=== PATIENT | male | born 1945 | race African-American/Black ===

== ENCOUNTER 2016-04-03 09:15 | Observation (INO) | payer MEDICARE ==
--- NOTE | 2016-04-03 09:34 | ERNOTE ---
Chest Pain/Cardiac HPI Date of Service: 04/03/16 Chief Complaint: Chest Pain Time Seen by Provider: 04/03/16 09:29 Source: patient Exam Limitations: no limitations Allergies/Adverse Reactions: Allergies No Known Allergies Allergy (Verified 05/28/14 14:55) Home Medications: HOME MEDICATIONS Multivitamin [Multivitamins] 1 each PO DAILY 09/20/12 [Last Taken 02/20/13] Tamsulosin HCl [Flomax] 0.8 mg PO HS 09/20/12 [Last Taken 02/20/13] Atorvastatin Calcium [Lipitor] 10 mg PO HS 12/15/12 [Last Taken 02/20/13] Docusate Sodium [Colace] 100 mg PO DAILY 02/18/13 [Last Taken 02/20/13] Folic Acid 0.4 mg PO DAILY 02/18/13 [Last Taken 02/20/13] Aspirin [Aspirin Enteric Coated] 81 mg PO DAILY 04/12/13 [Last Taken Unknown] Cholecalciferol (Vitamin D3) [Vitamin D3] 400 unit PO DAILY 04/12/13 [Last Taken Unknown] Nitroglycerin [Nitrostat] 0.4 mg SL PRN PRN 04/12/13 [Last Taken Unknown] Omeprazole [Prilosec] 20 mg PO DAILY 04/12/13 [Last Taken Unknown] Vitamin B Complex [Hi B Complex] 1 each PO DAILY 07/08/13 [Last Taken Unknown] Calcium Carbonate [Tums] 500 mg PO BID 12/28/14 [Last Taken Unknown] Fludrocortisone Acetate [Florinef] 0.1 mg PO 12/28/14 [Last Taken Unknown] Memantine HCl [Namenda] 5 mg PO DAILY 12/28/14 [Last Taken Unknown] Naproxen [Naprosyn] 375 mg PO BID #30 tab 12/28/14 [Last Taken Unknown] Spironolactone [Aldactone] 12.5 mg PO DAILY 12/28/14 [Last Taken Unknown] amLODIPine BESYLATE [Norvasc] 10 mg PO DAILY 12/28/14 [Last Taken Unknown] Narrative: pt states he had sqeezing type chest pains approximately 45 minutes prior to presentation to ED after he ate. then the pain spontaneously go away. He came in because he was worried. Review of Systems - Review of Systems Constitutional: Present: no symptoms reported EYE: Present: no symptoms reported ENT: Present: no symptoms reported Respiratory: Present: no symptoms reported Cardiology: Present: See HPI Gastrointestinal/Abdominal: Present: no symptoms reported Genitourinary: Present: no symptoms reported Musculoskeletal: Present: no symptoms reported Skin: Present: no symptoms reported - Patient's Past Medical History Patient History - Medical: No pertinent hx Patient History - Surgical Procedures: Noncontributory - Social History Does anyone smoke in the home?: No Physical Exam - Physical Exam General Appearance: Present: wd/wn, alert, no apparent distress, other - pt does NOT have any chest pains on exam Ears, Nose, Throat: Present: normal ENT inspection, hearing grossly normal Neck: Present: normal inspection, nontender, supple, full range of motion Respiratory: Present: no respiratory distress, normal breath sounds Cardiovascular/Chest: Present: regular rate, rhythm, no murmur, normal peripheral pulses Extremity Exam: Present: normal inspection, non-tender, no edema, normal range of motion ED Progress - Results and Orders Patient's Lab Results:: I have reviewed the patient's lab results. - Vital Signs Patient's Vital Signs:: I have reviewed the patient's vital signs. - EKG EKG: NSR - Progress/Reassessment Chief Complaint: Chest Pain Progress:: Improved Departure - Departure Clinical Impression: Chest pain Qualifiers: Chest pain type: unspecified Qualified Code(s): R07.9 - Chest pain, unspecified Disposition: [facility] Condition: Fair Referrals: Symone Worthy MD [Primary Care Provider] -
[2016-04-03 09:53] LABS: Hematocrit 39.2 % (42.0-52.0); Hemoglobin 12.9 gm/dL (13.5-18.0); Mean Cell Volume 95.1 fl (78-100); Mean Corpuscular Hemoglobin 31.3 pg (27-31); Mean Corpuscular Hgb Conc 32.9 g/dl (32-36); Mean Platelet Volume 9.8 fl (6.0-9.5); Neutrophil % 53.6 % (42-75.0); Platelet Count 205 K/mm3 (150-450); Red Blood Count 4.12 M/mm3 (4.7-6.0); Red Cell Distribution Width 12.2 % (11.5-14.0); White Blood Count 7.5 K/mm3 (4.0-10.5)
[2016-04-03 10:21] LABS: ALT 24 U/L (19-67); AST 17 U/L (0-48); Albumin * 3.3 gm/dl (3.4-5.0); Alkaline Phosphatase * 44 U/L (50-170); Anion Gap 8.9 mmol/L (6.8-13.8); BUN/Creatinine Ratio 8.5 (9.0-21.6); Bilirubin, Total 1.7 mg/dL (0.0-1.1); Blood Urea Nitrogen 9 mg/dL (6-23); Ca. Corrected For Albumin 8.8 mg/dL (8.4-10.2); Calcium * 8.6 mg/dL (7.9-10.9); Carbon Dioxide 30.8 mmol/L (24-32.6); Chloride 106 mmol/L (97-106); Glucose * 94 mg/dL (70-110); Potassium 3.7 mmol/L (3.4-4.6); Sodium 142 mmol/L (132-142); Total Protein 6.4 gm/dL (6.2-8.2)
[2016-04-03 10:22] LABS: Troponin I Less than 0.017 ng/ml (0.00-0.10)
[2016-04-03 17:03] VITALS: BP 177/69
--- NOTE | 2016-04-03 18:19 | HP ---
Chief Complaint - Chief Complaint Date of Service: 04/03/16 Time of Service: 18:18 Chief Complaint: mid sternal chest pain at approximately 0900 hrs on morning of admission. History of Present Illness: Patient is a 71-year-old -[place] male with a H/O HTN, HLD, BPH, GERD and mild dementia had midsternal chest pain which "scared him" which prompted him to come to the ER at approximately 9 AM. This occurred on and off intermittently for the next 2-3 minutes. There was no radiation, diaphoresis, palpitations or nausea associated with it. Initial EKG was unremarkable and troponin was normal. He was admitted into observation. - Patient's Past Medical History Additional info: PAST MEDICAL HISTORY: Hypertension, hyperlipidemia, GERD, BPH, mild dementia, constipation, dizziness improved with fludrocortisone. Patient History - Cancer: No Hx of Cancer Additional Info: PAST SURGICAL HISTORY: Hemorrhoidals Rxed with infrared 1994; laparoscopic cholecystectomy with cholangiogram 02/19/2013; TURP 02/25/2013; LT inguinal hernia repaired with mesh 04/2013. Patient History - Other: None - Family History Mother Family History - Medical: - 81-LA, CVA Father Family History - Medical: - 41sgunshot wound Brother Family History - Medical: - one at 54 with LA; 1 in 60s'- EtOH; one in 30s'- EtOH and drug abuse. 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 - Immunizations Immunizations Up to Date: Yes - tetanus 08/2012; Hx Pneumococcal Vaccination: Yes - History of Influenza Vaccine: Yes - 11/2015. Review Of Systems (GEN) - Review of Systems Generalized/Overall Review: Absent: Weakness, Fatigue, Weight loss Respiratory: Absent: Shortness of Breath, Orthopnea Cardiac: Present: Chest Pain. Absent: Edema, Palpitations Abdominal: Absent: Nausea, Vomiting, Diarrhea Allergies/Adverse Reactions: Allergies Allergy/AdvReac Type Severity Reaction Status Date / Time No Known Allergies Allergy Verified 05/28/14 14:55 Home Medications: HOME MEDICATIONS Atorvastatin Calcium [Lipitor] 10 mg PO HS 12/15/12 [Last Taken 02/20/13] Docusate Sodium [Colace] 300 mg PO DAILY 02/18/13 [Last Taken 02/20/13] Folic Acid 0.4 mg PO DAILY 02/18/13 [Last Taken 02/20/13] Aspirin [Aspirin Enteric Coated] 81 mg PO DAILY 04/12/13 [Last Taken Unknown] Nitroglycerin [Nitrostat] 0.4 mg SL PRN PRN 04/12/13 [Last Taken Unknown] Vitamin B Complex [Hi B Complex] 1 each PO DAILY 07/08/13 [Last Taken Unknown] Calcium Carbonate [Tums] 500 mg PO BID 12/28/14 [Last Taken Unknown] Fludrocortisone Acetate [Florinef] 0.05 mg PO 3XW 12/28/14 [Last Taken Unknown] Cholecalciferol (Vitamin D3) [Vitamin D3] 2,000 unit PO DAILY #100 tablet [Last Taken Unknown] Memantine HCl [Namenda Xr] 1 cap PO DAILY 04/03/16 [Last Taken Unknown] Omeprazole 20 mg PO DAILY@0700 #.1 tablet. 04/03/16 [Last Taken Unknown] Psyllium Husk (with Sugar) [Metamucil] 1 packet PO DAILY 04/03/16 [Last Taken Unknown] Spironolactone [Aldactone] 12.5 mg PO DAILY@0900 #.1 tablet 04/03/16 [Last Taken Unknown] Tamsulosin HCl [Flomax] 0.8 mg PO DAILY@1800 #.1 cap.sr.24h 04/03/16 [Last Taken Unknown] amLODIPine BESYLATE [Norvasc] 5 mg PO DAILY@2100 #.1 tablet 04/03/16 [Last Taken Unknown] Exam - Exam Vital Signs: Vital Signs - Last Taken Temp 36.4 C L 04/03/16 16:59 Pulse 48 L 04/03/16 18:00 Resp 20 04/03/16 16:59 BP 177/69 04/03/16 16:59 Pulse Ox 99 04/03/16 16:59 Constitutional: Present: No distress, Elderly, Overweight ENT Exam: Present: hearing grossly normal, moist mucous membranes Eye Exam: bilateral eye: normal inspection, PERRL, EOMI Neck: Present: normal inspection, trachea midline Respiratory: Present: chest non-tender, lungs clear, normal breath sounds, no accessory muscle use Cardiovascular/Chest: Present: regular rate, rhythm. Absent: tachycardia Peripheral Pulses: carotid (R): 2+, carotid (L): 2+, dorsalis-pedis (R): 2+, dorsalis-pedis (L): 2+ Abdomen: Present: Normal bowel sounds, soft, nontender, nondistended Extremity: Present: normal inspection, no pedal edema Skin Exam: Present: normal color, warm/dry Neurologic: Present: no motor/sensory deficits, alert, oriented x 3 Eye contact: Present: cooperative, good eye contact, normal speech Thoughts: Present: normal thought pattern, normal mood /affect Diagnostic Studies: Laboratory Tests 04/03/16 09:43 WBC 7.5 Hgb 12.9 L Hct 39.2 L Plt Count 205 04/03/16 09:43 Plasma Sodium 142 Potassium 3.7 Chloride 106 Carbon Dioxide 30.8 BUN 9 Creatinine 1.06 Est GFR (Non-Af Amer) 89 Random Glucose 94 Calcium Adj for Albumin 8.8 Total Bilirubin 1.7 H AST 17 ALT 24 Alkaline Phosphatase 44 L Albumin 3.3 L 04/03/16 04/03/16 09:43 15:53 Troponin I Less than 0.017 Less than 0.017 EK04/03/2016: Normal sinus rhythm 56/m w/o acute changes. CXR: 04/03/2016: 1. No acute cardiopulmonary process. 2. Focal eventration of the posterior two thirds of the left daniel-diaphragm, unchanged. There is a small amount of adjacent atelectasis. 3. Old healed fracture involving the posterior lateral right sixth rib. Assessment/Plan - Assessment/Plan (1) Chest pain of unknown etiology Assessment: Obtain next troponin at 1530 hrs. If negative patient will be discharged home and can schedule a regular stress test. Problem: Acute (2) Hypertension Assessment: Chronic and stable. On amlodipine 5 mg PO HS and spironolactone 12.5 mg PO in AM. Problem: Chronic Qualifiers: Hypertension type: essential hypertension Qualified Code(s): I10 - Essential (primary) hypertension (3) Hyperlipidemia Assessment: On atorvastatin 10 mg PO daily. Problem: Chronic Qualifiers: Hyperlipidemia type: unspecified Qualified Code(s): E78.5 - Hyperlipidemia , unspecified (4) Chronic gastroesophageal reflux disease Assessment: On omeprazole 20 mg PO 30 mins before breakfast. Problem: Chronic
--- NOTE | 2016-04-03 18:33 | DS ---
(1) Chest pain of unknown etiology Problem: Acute (2) Hypertension Problem: Chronic Qualifiers: Hypertension type: essential hypertension Qualified Code(s): I10 - Essential (primary) hypertension (3) Chronic gastroesophageal reflux disease Problem: Chronic (4) Hyperlipidemia Problem: Chronic Qualifiers: Hyperlipidemia type: unspecified Qualified Code(s): E78.5 - Hyperlipidemia , unspecified Description of Stay: DATE OF ADMISSION: 04/03/2016 10:00 HRS DATE OF DISCHARGE: 04/03/2016 18:30 HRS. HOSPITAL COURSE: The patient is a 71-year-old [place] male with a history of HTN, HLD, GERD, BPH and mild dementia who was admitted to the hospital because of midsternal chest pain lasting on and off for 2-3 minutes w/o radiation, diaphoresis, palpitations or nausea. The patient did not have chest wall/ epigastric tenderness on exam. EKG showed a normal sinus rhythm with a rate of 54/m w/o acute changes. Serial troponins were negative. Routine labs and chest x-ray were reviewed. All labs discussed with patient. Patient was discharged in a stable condition in the evening. A treadmill stress test will be scheduled on an outpatient basis. A total of 35 minutes was spent in this encounter of which greater than 50% was spent [id number] with the patient discussing test results and treatment options. Greater than 35 minutes preparing and dictating history/ physical and discharge summary. Procedures Performed: none Discharge Disposition: Home self care Disposition: Home self-care Condition: Fair Discharge Activity: Activity as tolerated Discharge Diet: Low fat/chol, High Fiber Referrals: Symone Worthy MD [Primary Care Provider] - Additional Patient Instructions (free text): No new medications- Timings may have changed of the medications. Appointment with Dr. Joseph in 1-2 weeks, preferably after stress test is done. please purchase vitamin D3 and baby ASA 81 mg OTC in a bottles of 100 as it would be more be cost effective. Prescriptions (Any new or edited meds): Cholecalciferol (Vitamin D3) [Vitamin D3] 2,000 unit PO DAILY #100 tablet Omeprazole 20 mg PO DAILY@0700 #.1 tablet. Spironolactone [Aldactone] 12.5 mg PO DAILY@0900 #.1 tablet Tamsulosin HCl [Flomax] 0.8 mg PO DAILY@1800 #.1 cap.sr.24h amLODIPine BESYLATE [Norvasc] 5 mg PO DAILY@2100 #.1 tablet Complete Home Medications List: Complete Home Medication List: Atorvastatin Calcium [Lipitor] 10 mg PO HS 12/15/12 Docusate Sodium [Colace] 300 mg PO DAILY 02/18/13 Folic Acid 0.4 mg PO DAILY 02/18/13 Aspirin [Aspirin Enteric Coated] 81 mg PO DAILY 04/12/13 Nitroglycerin [Nitrostat] 0.4 mg SL PRN PRN 04/12/13 Vitamin B Complex [Hi B Complex] 1 each PO DAILY 07/08/13 Calcium Carbonate [Tums] 500 mg PO BID 12/28/14 Fludrocortisone Acetate [Florinef] 0.05 mg PO 3XW 12/28/14 Cholecalciferol (Vitamin D3) [Vitamin D3] 2,000 unit PO DAILY #100 tablet Memantine HCl [Namenda Xr] 1 cap PO DAILY 04/03/16 Omeprazole 20 mg PO DAILY@0700 #.1 tablet. 04/03/16 Psyllium Husk (with Sugar) [Metamucil] 1 packet PO DAILY 04/03/16 Spironolactone [Aldactone] 12.5 mg PO DAILY@0900 #.1 tablet 04/03/16 Tamsulosin HCl [Flomax] 0.8 mg PO DAILY@1800 #.1 cap.sr.24h 04/03/16 amLODIPine BESYLATE [Norvasc] 5 mg PO DAILY@2100 #.1 tablet 04/03/16 Amb Orders for Discharge: Regular Exercise Stress Test Time Frame: 2 Weeks, Location: Determined By Patient
== END 2016-04-03 20:05 | disposition home or self-care (01) ==
LOC: ER 09:15 → UNDOADMOB 10:37 → MS 10:37
PROVIDERS: ADMIT Internal Medicine; ATTEND Internal Medicine
DX: E78.5 Hyperlipidemia, unspecified (principal); N40.0 Benign prostatic hyperplasia without lower urinary tract symptoms; F03.90 Unspecified dementia, unspecified severity, without behavioral disturbance, psychotic disturbance, mood disturbance, and anxiety
CPT/HCPCS: 36415; 71020; 80053; 82553; 84484; 85025; 93005; 99284; G0378

== ENCOUNTER 2016-04-10 22:06 | Emergency (ER) | payer MEDICARE ==
[2016-04-10 22:24] VITALS: BP 165/86
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
[2016-04-10 22:52] LABS: Hematocrit 39.7 % (42.0-52.0); Hemoglobin 13.1 gm/dL (13.5-18.0); Mean Corpuscular Hemoglobin 31.3 pg (27-31); Mean Platelet Volume 9.6 fl (6.0-9.5); Neutrophil # 4.7 K/mm3 (1.3-6.0); Neutrophil % 59.6 % (42-75.0); Platelet Count 197 K/mm3 (150-450); Red Blood Count 4.18 M/mm3 (4.7-6.0); Red Cell Distribution Width 12.3 % (11.5-14.0); White Blood Count 7.9 K/mm3 (4.0-10.5)
[2016-04-10 23:08] LABS: Albumin * 3.4 gm/dl (3.4-5.0); Anion Gap 8.5 mmol/L (6.8-13.8); BUN/Creatinine Ratio 10.6 (9.0-21.6); Bilirubin, Total 1.1 mg/dL (0.0-1.1); Ca. Corrected For Albumin 8.8 mg/dL (8.4-10.2); Calcium * 8.6 mg/dL (7.9-10.9); Carbon Dioxide 31.5 mmol/L (24-32.6); Total Protein 6.7 gm/dL (6.2-8.2)
== END 2016-04-11 00:10 | disposition home or self-care (01) ==
LOC: ER 22:06
DX: S20.211A Contusion of right front wall of thorax, initial encounter (principal); S83.91XA Sprain of unspecified site of right knee, initial encounter; V89.2XXA Person injured in unspecified motor-vehicle accident, traffic, initial encounter

== ENCOUNTER 2016-10-03 11:27 | Emergency (ER) | payer MEDICARE ==
[2016-10-03] MEDS ORDERED: NORMAL SALINE 1,000 ML IV ONE ×2 (11:38→12:26)
[2016-10-03] MEDS ORDERED: MECLIZINE HCL 25 MG TABLET PO ONE (11:39)
[2016-10-03] MEDS ORDERED: ONDANSETRON HCL/PF 2 MG/ML VIAL IV ONE (11:39)
--- NOTE | 2016-10-03 11:40 | ERNOTE ---
Dizziness ER Record Date of Service: 10/03/16 Presenting Symptoms: dizziness Time Seen by Provider: 10/03/16 11:33 Immunizations: IMMUNIZATION HX Immunizations Up to Date Yes: tetanus 08/2012; History of Influenza Vaccine Yes Hx Pneumococcal Vaccination Yes Allergies/Adverse Reactions: Allergies Allergy/AdvReac Type Severity Reaction Status Date / Time No Known Allergies Allergy Verified 10/03/16 11:36 Home Medications: HOME MEDICATIONS Atorvastatin Calcium [Lipitor] 10 mg PO HS 12/15/12 [Last Taken 02/20/13] Docusate Sodium [Colace] 300 mg PO DAILY 02/18/13 [Last Taken 02/20/13] Folic Acid 0.4 mg PO DAILY 02/18/13 [Last Taken 02/20/13] Aspirin [Aspirin Enteric Coated] 81 mg PO DAILY 04/12/13 [Last Taken Unknown] Nitroglycerin [Nitrostat] 0.4 mg SL PRN PRN 04/12/13 [Last Taken Unknown] Vitamin B Complex [Hi B Complex] 1 each PO DAILY 07/08/13 [Last Taken Unknown] Calcium Carbonate [Tums] 500 mg PO BID 12/28/14 [Last Taken Unknown] Fludrocortisone Acetate [Florinef] 0.05 mg PO 3XW 12/28/14 [Last Taken Unknown] Cholecalciferol (Vitamin D3) [Vitamin D3] 2,000 unit PO DAILY #100 tablet [Last Taken Unknown] Memantine HCl [Namenda Xr] 1 cap PO DAILY 04/03/16 [Last Taken Unknown] Omeprazole 20 mg PO DAILY@0700 #.1 tablet. 04/03/16 [Last Taken Unknown] Psyllium Husk (with Sugar) [Metamucil] 1 packet PO DAILY 04/03/16 [Last Taken Unknown] Spironolactone [Aldactone] 12.5 mg PO DAILY@0900 #.1 tablet 04/03/16 [Last Taken Unknown] Tamsulosin HCl [Flomax] 0.8 mg PO DAILY@1800 #.1 cap.sr.24h 04/03/16 [Last Taken Unknown] amLODIPine BESYLATE [Norvasc] 5 mg PO DAILY@2100 #.1 tablet 04/03/16 [Last Taken Unknown] - History of Present Illness Narrative: Pt. comes in with c/o dizziness since about 5 minutes after taking his namenda this morning. Pt. states that his physician recently increased his dosage. Pt. denies any CP, palpitations, weakness, SOB, diarrhea, fever, recent illness , but does state that he has nausea accompanying the dizziness. Pt. had an MRI yesterday that noted areas of ischemia and white matter disease. Pt. has had vertigo in the past and has a hx of dementia. Review of Systems - Review of Systems Constitutional: Present: no symptoms reported EYE: Present: no symptoms reported ENT: Present: no symptoms reported Respiratory: Present: no symptoms reported. Absent: shortness of breath, cough , wheezing Cardiology: Present: no symptoms reported. Absent: chest pain, palpitations, edema Genitourinary: Present: no symptoms reported Musculoskeletal: Present: no symptoms reported. Absent: back pain, joint pain Skin: Present: no symptoms reported. Absent: rash, change in color Neurological: Present: dizziness/light-headedness. Absent: headache, weakness, numbness All Other Systems: All systems neg except as marked - Patient's Past Medical History Patient History - Medical: No pertinent hx Patient History - Cardiac/Respiratory: Hypertension Patient History - Cancer: No Hx of Cancer Patient History - Surgical Procedures: Other Patient History - Other: None - Family History Mother Family History - Medical: Father Family History - Medical: Brother Family History - Medical: - Social History Living Situations: home Abuse History: No History of abuse Psych History: No pertinent hx Does anyone smoke in the home?: No Alcohol Use: none Drug Use: none - Immunizations Immunizations Up to Date: Yes - tetanus 08/2012; Hx Pneumococcal Vaccination: Yes History of Influenza Vaccine: Yes Physical Exam - Physical Exam General Appearance: Present: wd/wn, alert, no apparent distress Head Exam: Present: normal inspection, no evidence of injury Eye Exam: Normal inspection: bilateral, PERRL: bilateral, EOMI: bilateral Ears, Nose, Throat: Present: normal ENT inspection, normal pharynx Neck: Present: normal inspection, nontender. Absent: lymphadenopathy (R), lymphadenopathy (L) Respiratory: Present: no respiratory distress, normal breath sounds, no accessory muscle use, chest nontender, lungs clear Cardiovascular/Chest: Present: regular rate, rhythm, no murmur, normal peripheral pulses Gastrointestinal/Abdominal: Present: normal bowel sounds, nontender, nondistended, soft, no organomegaly Back Exam: Present: normal inspection Extremity Exam: Present: normal inspection Neurological Exam: Present: alert, oriented, normal mood/affect, no motor/ sensory deficits, medical instrument technician II-XII nml as tested, normal cerebellar test, other - mild forgetfulness but passed MME Skin Exam: Present: normal color, warm/dry. Absent: pallor, skin rash ED Progress - Date and Time Seen: Date and Time: 10/03/16 11:57 Reviewed MRI result from yesterday and pt. MRI with non acute changes and sinusitis that can be causing dizziness. Namenda can also cause these effects and therefore will have pt. decrease namenda to his previous dosage. 10/03/16 13:32 Pt. symptoms resolved educated pt. on medication changes and increasing water intake and potassium and to follow up with PCP to discuss further med changes like decreasing norvasc and Namenda. 10/03/16 13:37 Discussed with pharmacy and they state that they actually switched Namenda with Namzurich and they will switch it back to Namenda and take out his dose of Amlodipine today. - Results and Orders Patient's Lab Results:: I have reviewed the patient's lab results. - Vital Signs Patient's Vital Signs:: I have reviewed the patient's vital signs. Vital Signs: Vital Signs 10/03/16 11:33 Temperature 36.4 C L Pulse Rate 61 Respiratory 15 Rate Blood Pressure 175/75 O2 Sat by Pulse 98 Oximetry - X-Ray X-Ray #1 X-Ray: chest Interpretation: Reviewed by me X-ray Comments: no acute - Progress/Reassessment Chief Complaint: Dizziness Progress:: Improved Departure Clinical Impression: Dehydration Medication reaction Qualifiers: Encounter type: initial encounter Qualified Code(s): T88.7XXA - Unspecified adverse effect of drug or medicament, initial encounter - Departure Disposition: Home self-care Condition: Good Instructions: Dehydration, Elderly, [id number] Additional Instructions: Please take med pack to pharmacy to have Norvasc removed for tonights dose and have the Namzurich replaced with Namenda. Also please eat 2 Bananas today and follow up with your primary doctor to discuss medication changes and for repeat labs.
[2016-10-03] MEDS ORDERED: ONDANSETRON HCL/PF 2 MG/ML VIAL ONE (11:43)
[2016-10-03] MEDS ORDERED: MECLIZINE HCL 25 MG TABLET ONE (11:44)
[2016-10-03 11:58] LABS: Hematocrit 39.6 % (42.0-52.0); Hemoglobin 13.4 gm/dL (13.5-18.0); Mean Cell Volume 94.1 fl (78-100); Mean Corpuscular Hemoglobin 31.8 pg (27-31); Mean Corpuscular Hgb Conc 33.8 g/dl (32-36); Mean Platelet Volume 10.2 fl (6.0-9.5); Neutrophil % 49.7 % (42-75.0); Platelet Count 215 K/mm3 (150-450); Red Blood Count 4.21 M/mm3 (4.7-6.0); Red Cell Distribution Width 12.4 % (11.5-14.0); White Blood Count 6.1 K/mm3 (4.0-10.5)
[2016-10-03 12:17] LABS: ALT 11 U/L (19-67); AST 16 U/L (0-48); Albumin * 3.6 gm/dl (3.4-5.0); Alkaline Phosphatase * 56 U/L (50-170); Anion Gap 14.6 mmol/L (6.8-13.8); BUN/Creatinine Ratio 6.8 (9.0-21.6); Bilirubin, Total 1.7 mg/dL (0.0-1.1); Blood Urea Nitrogen 8 mg/dL (6-23); Ca. Corrected For Albumin 8.8 mg/dL (8.4-10.2); Calcium * 8.8 mg/dL (7.9-10.9); Carbon Dioxide 26.6 mmol/L (24-32.6); Chloride 106 mmol/L (97-106); Glucose * 156 mg/dL (70-110); Potassium 3.2 mmol/L (3.4-4.6); Sodium 144 mmol/L (132-142); Total Protein 6.8 gm/dL (6.2-8.2)
[2016-10-03 12:22] LABS: Troponin I Less than 0.017 ng/ml (0.00-0.10)
[2016-10-03 12:39] LABS: Urine Bilirubin Negative (NEGATIVE); Urine Blood Negative /ul (NEGATIVE); Urine Ketone Negative (NEGATIVE); Urine Nitrite Negative (NEGATIVE); Urine Protein Negative (NEGATIVE); Urine Urobilinogen Normal (NORMAL)
[2016-10-03 12:48] LABS: Urine Appearance Clear; Urine Color Yellow
[2016-10-03 12:49] LABS: Urine Bacteria None Seen; Urine RBC TRACE /hpf (0-5); Urine WBC TRACE /hpf (0-5)
[2016-10-03 12:49] LABS: Hemoglobin A1C 4.8 % (4.00-6.0)
[2016-10-03 13:27] VITALS: BP 169/75
== END 2016-10-03 13:43 | disposition home or self-care (01) ==
LOC: ER 11:27
DX: E86.0 Dehydration (principal); T88.7XXA Unspecified adverse effect of drug or medicament, initial encounter; I10 Essential (primary) hypertension; Z79.899 Other long term (current) drug therapy
CPT/HCPCS: 36415; 71020; 80053; 81001; 83036; 84484; 85025; 93005; 96361; 96374; 99284; J2405

== ENCOUNTER 2018-12-12 11:43 | Inpatient (IN) ==
[2018-12-12 12:10] LABS: Hematocrit 37.4 % (42.0-52.0); Hemoglobin 12.1 gm/dL (13.5-18.0); Mean Cell Volume 95.4 fl (78-100); Mean Corpuscular Hemoglobin 30.9 pg (27-31); Mean Corpuscular Hgb Conc 32.4 g/dl (32-36); Mean Platelet Volume 8.6 fl (8-11.3); Neutrophil # 6.6 K/mm3 (1.3-6.0); Neutrophil % 53.6 % (42-75.0); Platelet Count 374 K/mm3 (150-450); Red Blood Count 3.92 M/mm3 (4.7-6.0); Red Cell Distribution Width 12.1 % (11.5-14.0); White Blood Count 12.2 K/mm3 (4.0-10.5)
[2018-12-12 12:22] LABS: Albumin * 2.4 gm/dl (3.4-5.0); Anion Gap 11.1 mmol/L (6.8-13.8); BUN/Creatinine Ratio 9.1 (9.0-21.6); Bilirubin, Total 2.1 mg/dL (0.0-1.1); Ca. Corrected For Albumin 9.2 mg/dL (8.4-10.2); Calcium * 8.2 mg/dL (7.9-10.9); Carbon Dioxide 27.5 mmol/L (24-32.6); Potassium 2.6 mmol/L (3.4-4.6)
[2018-12-12] MEDS ORDERED: NORMAL SALINE 1,000 ML IV ONE ×2 (12:32→13:26)
--- NOTE | 2018-12-12 12:35 | ERNOTE ---
Dizziness ER Record Date of Service: 12/12/18 Presenting Symptoms: other - I had blood Time Seen by Provider: 12/12/18 12:16 Source: patient Exam Limitations: dementia Immunizations: IMMUNIZATION HX Immunizations Up to Date Yes History of Influenza Vaccine No Hx Pneumococcal Vaccination No Allergies/Adverse Reactions: Allergies Allergy/AdvReac Type Severity Reaction Status Date / Time No Known Allergies Allergy Verified 12/12/18 11:49 Home Medications: HOME MEDICATIONS acetaminophen 325 mg capsule 650 mg PO HS PRN cap 11/05/17 [Last Taken Unknown] memantine ER 28 mg-donepezil 10 mg capsule sprinkle,ext.release 24 hr 1 cap PO DAILY 11/13/17 [Last Taken Unknown] spironolactone 25 mg tablet 12.5 mg PO DAILY #90 tab 08/05/18 [Last Taken Unknown] cholecalciferol (vitamin D3) 2,000 unit tablet 2,000 unit PO DAILY #30 tab 1 [Last Taken Unknown] Amlodipine Besylate 5 mg PO DAILY 12/12/18 [Last Taken Unknown] Tamsulosin HCl [Flomax] 0.8 mg PO BID 12/12/18 [Last Taken Unknown] - History of Present Illness Narrative: "I had blood". Patient relates that he is here today because he had blood in his urine this morning. Painless. He denies dizziness. No CP or SOB. No he adache. He denies being weak to me. no headache. No abdominal pain. No blood in the stool. No flank or back pain. He seems somewhat confused but seems to be clear that this was blood in his urine, will get occult stool just to make sure. No other history available. Timing and Duration: gone now Associated Symptoms: Present: none Sense of movement: Present: none Modifying Factors - (Improves): Reports: nothing Modifying Factors - (Worsens): Reports: nothing Prior Treament: Denies: recently seen Review of Systems - Review of Systems Constitutional: Absent: fever Respiratory: Absent: shortness of breath Cardiology: Absent: chest pain Gastrointestinal/Abdominal: Absent: abdominal pain Genitourinary: Present: See HPI All Other Systems: All systems neg except as marked Medical History (Updated 07/20/18 @ 15:37 by Carmencita Landrum MD) Vascular dementia of acute onset without behavioral disturbance (Chronic) DJD (degenerative joint disease) of knee Onset Date: ~11/2013 GERD (gastroesophageal reflux disease) HTN (hypertension) Onset Date: ~2012 anteroseptal, atypical and inferior wall fixed detect with EF low at 50% on nuclear study, however ECHO on 11/13 did not show and WMA only delayed relaxation an normal LVEF History of BPH Hyperlipidemia Memory loss Onset Date: ~04/02/14 due to vascular dementia Surgical History: Surgical History (Updated 11/05/17 @ 11:43 by Tomi Richter LPN) H/O colonoscopy Onset Date: ~08/16/11 David-combined adenomatous and hyperplastic polyp. Repeat 5 yrs. H/O inguinal hernia repair Onset Date: ~04/16/13 Dr. Hernandez-left w/mesh H/O transurethral resection of prostate Onset Date: ~02/25/13 History of excision of lesion Onset Date: ~04/16/13 david- left hip mass-ancrochordon(skin tag). History of stress test Onset Date: ~05/30/16 treadmill-normal Hx laparoscopic cholecystectomy Onset Date: ~02/19/13 Dr. Hernandez-w/cholangiogram Internal hemorrhoid Onset Date: ~11/05/17 treated with infrared in 1994 [facility] Family History: Family History (Updated 11/05/17 @ 11:44 by Tomi Richter LPN) Sister Diabetes Heart disease Father Gunshot wound Mother Myocardial infarction CVA (cerebral vascular accident) Brother Myocardial infarction Sister No problems noted. Social History: (Last Reviewed 12/12/18 @ 12:33 by Lester Villanueva MD) Social History: Marital status: lives independently: Yes household members: none current occupational status: retired Highest education level completed: high school graduate Service: No Tobacco: Smoking Status: Former smoker how long ago did patient quit smoking: age 29 Alcohol: alcohol intake: current Alcohol type: wine Substance Use: substance use type: does not use Dietary Habits: caffeine: Yes Physical Exam - Physical Exam General Appearance: Present: alert, no apparent distress Head Exam: Present: normal inspection, no evidence of injury Eye Exam: Normal inspection: bilateral, PERRL: bilateral Ears, Nose, Throat: Present: normal ENT inspection Neck: Present: normal inspection Respiratory: Present: no respiratory distress, normal breath sounds, no accessory muscle use, lungs clear Cardiovascular/Chest: Present: regular rate, rhythm, normal peripheral pulses Gastrointestinal/Abdominal: Present: normal bowel sounds, nontender, nondistended, soft Male Genitals Exam: Present: normal genitalia, other - no blood at meatus Back Exam: Absent: CVA tenderness (R), CVA tenderness (L) Extremity Exam: Present: normal range of motion Neurological Exam: Present: alert, no motor/sensory deficits, other - seems confused which is baseline by report and history of dementia. No acute unilateral focal motor or sensory deficits Skin Exam: Present: normal color, warm/dry Progress - Results and Orders Patient's Lab Results:: I have reviewed the patient's lab results. - Vital Signs Patient's Vital Signs:: I have reviewed the patient's vital signs. Vital Signs: Vital Signs 12/12/18 11:44 Temperature 36.7 C Pulse Rate 92 Respiratory Rate 13 Blood Pressure 165/117 H O2 Sat by Pulse Oximetry 97 - EKG EKG #1 EKG: NSR EKG read: Interp. by me EKG Comments: NSR, non-specific changes, no STEMI noted. - Progress/Reassessment Chief Complaint: Dizziness Progress Note-Subjective: 12/12/18 15:55 Patient had hypokalemia replaced IV here. He had a bloody bowel movement here, almost mucoid (approx 100 cc). Guaiac positive. I gave 1L NS and he had a smaller bloody bowel movement, approx 50ml, bright red blood. HGB dropped 1 gram over the 2.5 hours and 1L NS> He lives at home alone with dementia and his history here was entirely unreliable. GIven this needs admission. D/W Dr Valdes. He will admit. D/W Dr Mcclellan who will consult. His last colonoscopy wa2011 with recommended repeat in 5 years. I did rectal exam with female RN present, no external source of bleeding noted. Departure Clinical Impression: GI bleeding, Hypokalemia - Departure Disposition: Still a patient Condition: Fair Referrals: Carmencita Landrum MD [Primary Care Provider] -
[2018-12-12] MEDS: POTASSIUM CHLORIDE IN WATER 100 ML IV SCH ×4 (12:51→17:05)
[2018-12-12 14:35] LABS: Hematocrit 35.1 % (42.0-52.0); Hemoglobin 11.2 gm/dL (13.5-18.0)
[2018-12-12 18:09] LABS: Urine Appearance Clear (CLEAR); Urine Bilirubin Negative (NEGATIVE); Urine Color Dark Yellow
[2018-12-12 18:10] LABS: Urine Bacteria None Seen; Urine Blood 25 /ul (NEGATIVE); Urine Ketone 50 mg/dL (NEGATIVE); Urine Nitrite Negative (NEGATIVE); Urine Protein 30 mg/dL (NEGATIVE); Urine RBC 0-5 /hpf (0-5); Urine Urobilinogen Normal (NORMAL); Urine WBC 0-5 /hpf (0-5); Urine pH 5.5 pH (5.0-7.0)
--- NOTE | 2018-12-12 19:19 | HP ---
Chief Complaint - Chief Complaint Date of Service: 12/12/18 Time of Service: 19:18 Chief Complaint: I had blood History of Present Illness: Yennifer Cohen is a 73-year-old male with past medical history of hypertension, hyperlipidemia, vascular dementia, degenerative joint disease who was admitted on 12/12/2018 with a chief complaint of "I had blood in my urine". Yennifer Cohen is not a good historian and is confused. When asked why he went to the hospital he could not remember the reason behind it and could not remember how he got to the hospital. Per emergency room notes the patient told the emergency room doctor that he had blood in his urine and it was a painless hematuria. He denies chest pain, shortness of breath, abdominal pain, no flank or back pain, denies hematemesis, nausea, vomiting, constipation but said that he had diarrhea. When asked to describe his diarrhea patient is not able to characterize it at all. When they did a urinalysis in the emergency room the urine was clear. He did have blood, 0-5 RBC. He did have hematochezia in the emergency room, 100 cc and then later on again 50 cc of bright red blood. His labs showed a hemoglobin of 11.2 down from 14.2, creatinine was up to 1.43 from 1.13 from 7 months ago. His potassium was 2.6. His chest x-ray showed no acute cardiopulmonary findings. He was admitted for further evaluation and treatment. Medical History (Updated 12/12/18 @ 19:19 by Coy Valdes MD) Vascular dementia of acute onset without behavioral disturbance (Chronic) DJD (degenerative joint disease) of knee Onset Date: ~11/2013 GERD (gastroesophageal reflux disease) HTN (hypertension) Onset Date: ~2012 anteroseptal, atypical and inferior wall fixed detect with EF low at 50% on nuclear study, however ECHO on 11/13 did not show and WMA only delayed relaxation an normal LVEF History of BPH Hyperlipidemia Memory loss Onset Date: ~04/02/14 due to vascular dementia Surgical History: Surgical History (Updated 12/12/18 @ 19:19 by Coy Valdes MD) H/O colonoscopy Onset Date: ~08/16/11 David-combined adenomatous and hyperplastic polyp. Repeat 5 yrs. H/O inguinal hernia repair Onset Date: ~04/16/13 Dr. Hernandez-left w/mesh H/O transurethral resection of prostate Onset Date: ~02/25/13 History of excision of lesion Onset Date: ~04/16/13 david- left hip mass-ancrochordon(skin tag). History of stress test Onset Date: ~05/30/16 treadmill-normal Hx laparoscopic cholecystectomy Onset Date: ~02/19/13 Dr. Hernandez-w/cholangiogram Internal hemorrhoid Onset Date: ~11/05/17 treated with infrared in 1994 [facility] Family History: Family History (Updated 11/05/17 @ 11:44 by Tomi Richter LPN) Sister Diabetes Heart disease Father Gunshot wound Mother Myocardial infarction CVA (cerebral vascular accident) Brother Myocardial infarction Sister No problems noted. Social History: (Last Reviewed 12/12/18 @ 16:50 by Krystyna Romano RN) Social History: Marital status: lives independently: Yes household members: none current occupational status: retired Highest education level completed: high school graduate Service: No Tobacco: Smoking Status: Former smoker how long ago did patient quit smoking: age 29 Alcohol: alcohol intake: current Alcohol type: wine Substance Use: substance use type: does not use Dietary Habits: caffeine: Yes Review Of Systems (GEN) - Review of Systems Additional Comments: unreliable due to his confusion. Immunizations: IMMUNIZATION HX Immunizations Up to Date Yes History of Influenza Vaccine No Hx Pneumococcal Vaccination No Allergies/Adverse Reactions: Allergies Allergy/AdvReac Type Severity Reaction Status Date / Time No Known Allergies Allergy Verified 12/12/18 16:50 Home Medications: HOME MEDICATIONS acetaminophen 325 mg capsule 650 mg PO HS PRN cap 11/05/17 [Last Taken Unknown] memantine ER 28 mg-donepezil 10 mg capsule sprinkle,ext.release 24 hr 1 cap PO DAILY 11/13/17 [Last Taken 12/12/18] spironolactone 25 mg tablet 12.5 mg PO DAILY #90 tab 08/05/18 [Last Taken 12/12/18] cholecalciferol (vitamin D3) 2,000 unit tablet 2,000 unit PO DAILY #30 tab 12/02/18 [Last Taken 12/12/18] Amlodipine Besylate 5 mg PO DAILY 12/12/18 [Last Taken 12/12/18] Tamsulosin HCl [Flomax] 0.8 mg PO BID 12/12/18 [Last Taken 12/12/18] Exam - Exam Vital Signs: Vital Signs - Last Taken Temp 37.0 C 12/12/18 17:00 Pulse 95 12/12/18 17:00 Resp 18 12/12/18 17:00 BP 139/74 12/12/18 17:00 Pulse Ox 93 12/12/18 17:00 Constitutional: Present: Alert - AAO x 1 ENT Exam: Present: hearing grossly normal Eye Exam: bilateral eye: normal inspection, PERRL, EOMI Neck: Present: supple. Absent: lymphadenopathy (R), lymphadenopathy (L) Respiratory: Present: normal breath sounds, No rales, No wheezing Cardiovascular/Chest: Present: regular rate, rhythm, no JVD, no murmur Abdomen: Present: Normal bowel sounds, soft, nontender, no rebound tenderness, distended - slightly Extremity: Present: no calf tenderness, lower extremity edema - trace Diagnostic Studies: Abnormal Lab Results 12/12/18 12/12/18 12/12/18 Range/Units 12:04 12:04 13:25 WBC 12.2 H (4.0-10.5) K/mm3 RBC 3.92 L (4.7-6.0) M/mm3 Hgb 12.1 L (13.5-18.0) gm/dL Hct 37.4 L (42.0-52.0) % Immature Gran # (Auto) 0.04 H (0.000-0.0310) K/mm3 Monocytes % 12.2 H (0.0-9) % Eosinophils % 6.9 H (0.0-3.0) % Neutrophils # 6.6 H (1.3-6.0) K/mm3 Monocytes # 1.5 H (0.0-1.0) k/mm3 Eosinophils # 0.8 H (0.0-0.7) k/mm3 Potassium 2.6 L D (3.4-4.6) mmol/L Creatinine 1.43 H (0.4-1.4) mg/dL Random Glucose 118 H (70-110) mg/dL Total Bilirubin 2.1 H (0.0-1.1) mg/dL ALT 5 L (19-67) U/L Albumin 2.4 L (3.4-5.0) gm/dl Urine Protein (NEGATIVE) mg/dL Urine Blood (NEGATIVE) /ul Stool Occult Blood Positive H 12/12/18 12/12/18 Range/Units 14:30 17:00 WBC (4.0-10.5) K/mm3 RBC (4.7-6.0) M/mm3 Hgb 11.2 L (13.5-18.0) gm/dL Hct 35.1 L (42.0-52.0) % Immature Gran # (Auto) (0.000-0.0310) K/mm3 Monocytes % (0.0-9) % Eosinophils % (0.0-3.0) % Neutrophils # (1.3-6.0) K/mm3 Monocytes # (0.0-1.0) k/mm3 Eosinophils # (0.0-0.7) k/mm3 Potassium (3.4-4.6) mmol/L Creatinine (0.4-1.4) mg/dL Random Glucose (70-110) mg/dL Total Bilirubin (0.0-1.1) mg/dL ALT (19-67) U/L Albumin (3.4-5.0) gm/dl Urine Protein 30 H (NEGATIVE) mg/dL Urine Blood 25 H (NEGATIVE) /ul Stool Occult Blood Laboratory Results WBC 12.2 K/mm3 (4.0-10.5) H 12/12/18 12:04 RBC 3.92 M/mm3 (4.7-6.0) L 12/12/18 12:04 Hgb 11.2 gm/dL (13.5-18.0) L 12/12/18 14:30 Hct 35.1 % (42.0-52.0) L 12/12/18 14:30 MCV 95.4 fl (78-100) 12/12/18 12:04 MCH 30.9 pg (27-31) 12/12/18 12:04 MCHC 32.4 g/dl (32-36) 12/12/18 12:04 RDW 12.1 % (11.5-14.0) 12/12/18 12:04 Plt Count 374 K/mm3 (150-450) 12/12/18 12:04 MPV 8.6 fl (8-11.3) 12/12/18 12:04 Immature Gran % (Auto) 0.30 % (0.001-0.429) 12/12/18 12:04 Immature Gran # (Auto) 0.04 K/mm3 (0.000-0.0310) H 12/12/18 12:04 53.6 % (42-75.0) 12/12/18 12:04 26.6 % (20-51) 12/12/18 12:04 12.2 % (0.0-9) H 12/12/18 12:04 6.9 % (0.0-3.0) H 12/12/18 12:04 0.4 % (0.0-1.0) 12/12/18 12:04 Nucleated RBC % 0.0 k/mm3 (0-1) 12/12/18 12:04 6.6 K/mm3 (1.3-6.0) H 12/12/18 12:04 3.25 k/mm3 (1.5-3.5) 12/12/18 12:04 1.5 k/mm3 (0.0-1.0) H 12/12/18 12:04 0.8 k/mm3 (0.0-0.7) H 12/12/18 12:04 Absolute Basophils 0.1 k/mm3 (0.0-0.1) 12/12/18 12:04 Sodium 141 mmol/L (132-142) 12/12/18 12:04 141 mmol/L (130-142) 12/12/18 12:04 Potassium 2.6 mmol/L (3.4-4.6) L D 12/12/18 12:04 Chloride 105 mmol/L (97-106) 12/12/18 12:04 Carbon Dioxide 27.5 mmol/L (24-32.6) 12/12/18 12:04 11.1 mmol/L (6.8-13.8) 12/12/18 12:04 BUN 13 mg/dL (6-23) 12/12/18 12:04 1.43 mg/dL (0.4-1.4) H 12/12/18 12:04 Est GFR (Non-Af Amer) 63 mL/min (60-130) D 12/12/18 12:04 9.1 (9.0-21.6) 12/12/18 12:04 118 mg/dL (70-110) H 12/12/18 12:04 Calcium 8.2 mg/dL (7.9-10.9) 12/12/18 12:04 Calcium Adj for Albumin 9.2 mg/dL (8.4-10.2) 12/12/18 12:04 Magnesium 1.7 mg/dL (1.2-2.8) 12/12/18 12:04 2.1 mg/dL (0.0-1.1) H 12/12/18 12:04 AST 12 U/L (0-48) 12/12/18 12:04 ALT 5 U/L (19-67) L 12/12/18 12:04 51 U/L (50-170) 12/12/18 12:04 0.060 ng/mL (0.00-0.10) 12/12/18 12:04 7.0 gm/dL (6.2-8.2) 12/12/18 12:04 2.4 gm/dl (3.4-5.0) L 12/12/18 12:04 Dark yellow 12/12/18 17:00 Clear (CLEAR) 12/12/18 17:00 5.5 pH (5.0-7.0) 12/12/18 17:00 Ur Specific [place] 1.030 SP.GR. (1.005-1.030) 12/12/18 17:00 30 mg/dL (NEGATIVE) H 12/12/18 17:00 Negative mg/dL (NEGATIVE) 12/12/18 17:00 50 mg/dL (NEGATIVE) 12/12/18 17:00 25 /ul (NEGATIVE) H 12/12/18 17:00 Negative (NEGATIVE) 12/12/18 17:00 Negative mg/dl (NEGATIVE) 12/12/18 17:00 Prot Sulfosalicylic Acd 1+ mg/dL (0) 12/12/18 17:00 Normal EU/dl (NORMAL) 12/12/18 17:00 Ur Leukocyte Esterase Negative /ul (NEGATIVE) 12/12/18 17:00 0-5 /hpf (0-5) 12/12/18 17:00 0-5 /hpf (0-5) 12/12/18 17:00 Ur Epithelial Cells 0-5 /hpf (0-5) 12/12/18 17:00 None seen (NONE) 12/12/18 17:00 No culture indicated 12/12/18 17:00 Positive H 12/12/18 13:25 Blood Type O Positive 12/12/18 12:04 Antibody Screen Negative 12/12/18 12:04 Assessment/Plan - Narrative Narrative: Yennifer Cohen is a 73-year-old male admitted for GI bleed likely lower GI bleed and acute renal failure likely prerenal. We will keep patient n.p.o. for now and continue with patient's IV fluid and we will do serial H&H. We will get a surgical consult. The patient was given IV potassium riders bags of 10 meq x 4 in the emergency room. The patient is currently hemodynamically stable. His last colonoscopy was in 2011 and I believe there were polyps and was recommended a 5-year follow-up. - Assessment/Plan (1) GI bleeding Problem: Acute (2) Hypokalemia Problem: Acute (3) Vascular dementia of acute onset without behavioral disturbance Problem: Chronic (4) Hypertension Problem: Chronic Qualifiers: Hypertension type: essential hypertension Qualified Code(s): I10 - Essential (primary) hypertension (5) Hyperlipidemia Problem: Chronic Qualifiers: Hyperlipidemia type: unspecified Qualified Code(s): E78.5 - Hyperlipidemia, unspecified (6) Chronic gastroesophageal reflux disease Problem: Chronic
[2018-12-12 20:24] LABS: Hematocrit 39.5 % (42.0-52.0); Hemoglobin 12.6 gm/dL (13.5-18.0)
[2018-12-12] MEDS ORDERED: DEXTROSE 5%-NORMAL SALINE 1,000 ML IV PRN (21:00)
[2018-12-13 04:43] LABS: BUN/Creatinine Ratio 8.5 (9.0-21.6); Calcium * 7.5 mg/dL (7.9-10.9); Carbon Dioxide 25.9 mmol/L (24-32.6); Estimated Creat Clear 62.7
[2018-12-13 05:04] LABS: Anion Gap 10.8 mmol/L (6.8-13.8); Potassium 2.7 mmol/L (3.4-4.6)
[2018-12-13 05:36] LABS: Hematocrit 32.4 % (42.0-52.0); Hemoglobin 10.4 gm/dL (13.5-18.0); Mean Corpuscular Hemoglobin 31.1 pg (27-31); Mean Corpuscular Hgb Conc 32.1 g/dl (32-36); Platelet Count 290 K/mm3 (150-450); Red Blood Count 3.34 M/mm3 (4.7-6.0); Red Cell Distribution Width 12.2 % (11.5-14.0); White Blood Count 8.9 K/mm3 (4.0-10.5)
[2018-12-13] MEDS: POTASSIUM CHLORIDE 20 MEQ TABLET.SA PO SCH ×4 (06:07→16:05)
[2018-12-13] MEDS: POTASSIUM CHLORIDE IN WATER 100 ML IV SCH ×2 (07:23→08:30)
[2018-12-13] MEDS: POTASSIUM CHLORIDE 20 MEQ in 0.5 NORMAL SALINE 1,000 ML IV SCH ×2 (07:23→17:41)
--- NOTE | 2018-12-13 09:24 | CONS ---
[facility] - General Date of Service: 12/13/18 Narrative: rectal bleeding, anemia Source: patient Exam Limitations: no limitations - History of Present Illness Initial Comments: Patient is a very poor historian. History is obtained from the chart and other physicians. He came into the emergency room yesterday and had 2 small bloody stools. He was found to be anemic and had hypokalemia. He lives alone with his dog. His last colonoscopy was in 2011. He had polyps and they recommended that he have a repeat colonoscopy in 5 years. He denies any abdominal pain. He also has hematuria. He states that he always has head and joint pain. Timing/Duration: 24 hours Severity: moderate Associated Symptoms: denies symptoms Allergies/Adverse Reactions: Allergies No Known Allergies Allergy (Verified 12/12/18 16:50) Home Medications: Home Medications Medication Instructions Recorded Last Taken acetaminophen 325 mg capsule 650 mg PO HS PRN cap 11/05/17 Unknown memantine ER 28 mg-donepezil 10 mg 1 cap PO DAILY 11/13/17 12/12/18 capsule sprinkle,ext.release 24 hr spironolactone 25 mg tablet 12.5 mg PO DAILY #90 tab 08/05/18 12/12/18 cholecalciferol (vitamin D3) 2,000 2,000 unit PO DAILY #30 tab 12/02/18 12/12/18 unit tablet Amlodipine Besylate 5 mg PO DAILY 12/12/18 12/12/18 Tamsulosin HCl [Flomax] 0.8 mg PO BID 12/12/18 12/12/18 Procedures Colonoscopy (11/28/00) Endoscopic polypectomy of large intestine (08/16/11) Intraoperative cholangiogram (02/19/13) Laparoscopic cholecystectomy (02/19/13) Other and open repair of indirect inguinal hernia with graft or prosthesis (04/16/13) Other cystoscopy (11/04/12) Other local excision or destruction of lesion or tissue of skin and subcutaneous tissue (04/16/13) Medications - Medications Current Medications: Current Medications Potassium Chloride 20 meq/ (Sodium Chloride) 1,010 mls @ 125 mls/hr IV .[id number] EMANUEL Stop: 01/12/19 05:46 Last Admin: 12/13/18 07:23 Dose: 125 mls/hr Documented by: Potassium Chloride (K-Dur) 40 meq PO TID EMANUEL Stop: 01/12/19 06:01 Last Admin: 12/13/18 08:28 Dose: Not Given Documented by: Review of Systems - Review of Systems Narrative: Unable to obtain an accurate review of systems Physical Examination - Exam Vital Signs: Vital Signs - Last Taken Temp 37.3 C 12/13/18 07:00 Pulse 109 H 12/13/18 07:00 Resp 16 12/13/18 07:00 BP 142/64 12/13/18 07:00 Pulse Ox 95 12/13/18 07:00 O2 Oxygen Delivery Method Room Air Constitutional: Present: Alert, Cooperative, Well developed, No distress ENT Exam: Present: hearing grossly normal Eye Exam: bilateral eye: normal inspection Neck: Present: supple, trachea midline Breasts: Present: Exam deferred Respiratory: Present: lungs clear, normal breath sounds Cardiovascular/Chest: Present: regular rate, rhythm Abdomen: Present: soft, nontender, nondistended, no rebound tenderness. Absent: tender, guarding, rigidity, rebound tenderness Extremity: Present: normal range of motion Skin Exam: Present: normal color Neurologic: Present: manager software development II-XII nml as tested Appearance: Present: appropriate appearance Eye contact: Present: cooperative, good eye contact Thoughts: Present: normal thought pattern - Results and Findings: Lab/Microbiology results last 24 hrs: Abnormal/Pending Laboratory Last 24 HRS 12/13/18 12/13/18 12/12/18 04:00 04:00 20:10 WBC RBC 3.34 L Hgb 10.4 L 12.6 L Hct 32.4 L 39.5 L MCH 31.1 H Immature Gran # (Auto) Monocytes % Eosinophils % Neutrophils # Monocytes # Eosinophils # Sodium 145 H Plasma Sodium 146 H Potassium 2.7 L Chloride 111 H Creatinine BUN/Creatinine Ratio 8.5 L Random Glucose 142 H Calcium 7.5 L Total Bilirubin ALT Albumin Urine Protein Urine Blood Stool Occult Blood 12/12/18 12/12/18 12/12/18 17:00 14:30 13:25 WBC RBC Hgb 11.2 L Hct 35.1 L MCH Immature Gran # (Auto) Monocytes % Eosinophils % Neutrophils # Monocytes # Eosinophils # Sodium Plasma Sodium Potassium Chloride Creatinine BUN/Creatinine Ratio Random Glucose Calcium Total Bilirubin ALT Albumin Urine Protein 30 H Urine Blood 25 H Stool Occult Blood Positive H 12/12/18 12/12/18 12:04 12:04 WBC 12.2 H RBC 3.92 L Hgb 12.1 L Hct 37.4 L MCH Immature Gran # (Auto) 0.04 H Monocytes % 12.2 H Eosinophils % 6.9 H Neutrophils # 6.6 H Monocytes # 1.5 H Eosinophils # 0.8 H Sodium Plasma Sodium Potassium 2.6 L D Chloride Creatinine 1.43 H BUN/Creatinine Ratio Random Glucose 118 H Calcium Total Bilirubin 2.1 H ALT 5 L Albumin 2.4 L Urine Protein Urine Blood Stool Occult Blood - Assessments/Findings (1) GI bleeding Problem: Acute (2) Hypokalemia Problem: Acute Plan - Plan Plan: He is overdue for his colonoscopy due to polyps. He is now having rectal bleeding. He is a fall risk at home to do a prep alone. Since he is a the hospital anyway, we will plan to do his prep and do a colonoscopy tomorrow. Plan was discussed with the patient risks and benefits of the procedure were discussed. He voices understanding and would like to proceed. Plan was also discussed with Dr. Valdes. Thank you for allowing me to participate in the care of your patient.
[2018-12-13] MEDS ORDERED: SODIUM, POTASSIUM,MAG SULFATES 1 KIT KIT PO ONE (10:00)
[2018-12-13] MEDS ORDERED: ACETAMINOPHEN 325 MG TABLET PO PRN (10:35)
--- NOTE | 2018-12-13 10:40 | PN ---
Subjective - Date and Time Seen Date: 12/13/18 Time: 10:32 Subjective Narrative: Patient is AAO x 2 today. His Hb is cheryl to 10.4 from 12.1 on admission. K did not increase siginificantly with K replacements. Objective - Review of Systems Misc: All systems neg except as marked - unreliable due to his intermittent confusion likely form his dementia - Vitals Vitals: Last Vital Signs Temp 37.3 C 12/13/18 07:00 Pulse 109 H 12/13/18 07:00 Resp 16 12/13/18 07:00 BP 142/64 12/13/18 07:00 Pulse Ox 95 12/13/18 07:00 - Abnormal Lab Findings Abnormal Lab Findings: Abnormal Lab Results 12/12/18 12/12/18 12/12/18 Range/Units 12:04 12:04 13:25 WBC 12.2 H (4.0-10.5) K/mm3 RBC 3.92 L (4.7-6.0) M/mm3 Hgb 12.1 L (13.5-18.0) gm/dL Hct 37.4 L (42.0-52.0) % MCH (27-31) pg Immature Gran # (Auto) 0.04 H (0.000-0.0310) K/mm3 Monocytes % 12.2 H (0.0-9) % Eosinophils % 6.9 H (0.0-3.0) % Neutrophils # 6.6 H (1.3-6.0) K/mm3 Monocytes # 1.5 H (0.0-1.0) k/mm3 Eosinophils # 0.8 H (0.0-0.7) k/mm3 Sodium (132-142) mmol/L Plasma Sodium (130-142) mmol/L Potassium 2.6 L D (3.4-4.6) mmol/L Chloride (97-106) mmol/L Creatinine 1.43 H (0.4-1.4) mg/dL BUN/Creatinine Ratio (9.0-21.6) Random Glucose 118 H (70-110) mg/dL Calcium (7.9-10.9) mg/dL Total Bilirubin 2.1 H (0.0-1.1) mg/dL ALT 5 L (19-67) U/L Albumin 2.4 L (3.4-5.0) gm/dl Urine Protein (NEGATIVE) mg/dL Urine Blood (NEGATIVE) /ul Stool Occult Blood Positive H 12/12/18 12/12/18 12/12/18 Range/Units 14:30 17:00 20:10 WBC (4.0-10.5) K/mm3 RBC (4.7-6.0) M/mm3 Hgb 11.2 L 12.6 L (13.5-18.0) gm/dL Hct 35.1 L 39.5 L (42.0-52.0) % MCH (27-31) pg Immature Gran # (Auto) (0.000-0.0310) K/mm3 Monocytes % (0.0-9) % Eosinophils % (0.0-3.0) % Neutrophils # (1.3-6.0) K/mm3 Monocytes # (0.0-1.0) k/mm3 Eosinophils # (0.0-0.7) k/mm3 Sodium (132-142) mmol/L Plasma Sodium (130-142) mmol/L Potassium (3.4-4.6) mmol/L Chloride (97-106) mmol/L Creatinine (0.4-1.4) mg/dL BUN/Creatinine Ratio (9.0-21.6) Random Glucose (70-110) mg/dL Calcium (7.9-10.9) mg/dL Total Bilirubin (0.0-1.1) mg/dL ALT (19-67) U/L Albumin (3.4-5.0) gm/dl Urine Protein 30 H (NEGATIVE) mg/dL Urine Blood 25 H (NEGATIVE) /ul Stool Occult Blood 12/13/18 12/13/18 Range/Units 04:00 04:00 WBC (4.0-10.5) K/mm3 RBC 3.34 L (4.7-6.0) M/mm3 Hgb 10.4 L (13.5-18.0) gm/dL Hct 32.4 L (42.0-52.0) % MCH 31.1 H (27-31) pg Immature Gran # (Auto) (0.000-0.0310) K/mm3 Monocytes % (0.0-9) % Eosinophils % (0.0-3.0) % Neutrophils # (1.3-6.0) K/mm3 Monocytes # (0.0-1.0) k/mm3 Eosinophils # (0.0-0.7) k/mm3 Sodium 145 H (132-142) mmol/L Plasma Sodium 146 H (130-142) mmol/L Potassium 2.7 L (3.4-4.6) mmol/L Chloride 111 H (97-106) mmol/L Creatinine (0.4-1.4) mg/dL BUN/Creatinine Ratio 8.5 L (9.0-21.6) Random Glucose 142 H (70-110) mg/dL Calcium 7.5 L (7.9-10.9) mg/dL Total Bilirubin (0.0-1.1) mg/dL ALT (19-67) U/L Albumin (3.4-5.0) gm/dl Urine Protein (NEGATIVE) mg/dL Urine Blood (NEGATIVE) /ul Stool Occult Blood - Exam Constitutional: Present: Alert - AAo x 2 ENT Exam: Present: hearing grossly normal Neck: Present: supple. Absent: lymphadenopathy (R), lymphadenopathy (L) Respiratory: Present: normal breath sounds, No rales, No wheezing Cardiovascular/Chest: Present: regular rate, rhythm, no JVD, no murmur Abdomen: Present: Normal bowel sounds, soft, nontender, obese Extremity: Present: no calf tenderness, pedal edema Assessment/Plan Plan Narrative: Family Cohen is a 73-year-old male who was admitted yesterday for hematochezia. His hemoglobin is down to 10.4 from 12.1 and admission. He likely has lower GI bleeding from either a bleeding divertic or bleeding polyp as his last colonoscopy in 2011 showed scattered diverticulosis and a polyp for which a polypectomy was done. Recommendation was to do a follow-up in [address] Viridiana hunt is going to do a colonoscopy tomorrow. We are replacing his potassium with K riders, oral potassium pills as well as potassium on his IV fluids. We will repeat potassium this afternoon. - Problems/Diagnosis (1) GI bleeding Problem: Acute (2) Hypokalemia Problem: Acute (3) Vascular dementia of acute onset without behavioral disturbance Problem: Chronic (4) Hypertension Problem: Chronic Qualifiers: Hypertension type: essential hypertension Qualified Code(s): I10 - Essential (primary) hypertension (5) Hyperlipidemia Problem: Chronic Qualifiers: Hyperlipidemia type: unspecified Qualified Code(s): E78.5 - Hyperlipidemia, unspecified (6) Chronic gastroesophageal reflux disease Problem: Chronic
[2018-12-13] MEDS: SODIUM, POTASSIUM,MAG SULFATES 1 KIT KIT PO SCH ×2 (15:14→21:49)
[2018-12-13] MEDS: TAMSULOSIN HCL 0.4 MG CAP.SR.24H PO SCH (17:39)
[2018-12-13] MEDS ORDERED: TAMSULOSIN HCL 0.4 MG CAP.SR.24H PO SCH (21:00)
[2018-12-14] MEDS: POTASSIUM CHLORIDE 20 MEQ in 0.5 NORMAL SALINE 1,000 ML IV SCH ×2 (01:45→09:16)
[2018-12-14] MEDS: POTASSIUM CHLORIDE IN WATER 100 ML IV SCH ×2 (02:49→03:55)
[2018-12-14 05:56] LABS: Hematocrit 33.6 % (42.0-52.0); Hemoglobin 10.7 gm/dL (13.5-18.0); Mean Cell Volume 97.1 fl (78-100); Mean Corpuscular Hemoglobin 30.9 pg (27-31); Mean Corpuscular Hgb Conc 31.8 g/dl (32-36); Mean Platelet Volume 8.8 fl (8-11.3); Platelet Count 392 K/mm3 (150-450); Red Blood Count 3.46 M/mm3 (4.7-6.0); Red Cell Distribution Width 12.4 % (11.5-14.0); White Blood Count 9.7 K/mm3 (4.0-10.5)
[2018-12-14 06:02] LABS: Total Cells Counted 100
[2018-12-14 06:07] LABS: Anion Gap 10.1 mmol/L (6.8-13.8); BUN/Creatinine Ratio 9.3 (9.0-21.6); Calcium * 7.9 mg/dL (7.9-10.9); Carbon Dioxide 25.9 mmol/L (24-32.6)
[2018-12-14 06:13] LABS: Atypical (Reactive) Lymph 1 % (0-2); Band 16 % (0-2.0); Eosinophil 2 % (0-3); Immature Granulocyte 1 (0-1); Lymphocyte 25 % (20-51); Monocyte 8 % (0-9); Neutrophil 47 % (42-75); Neutrophil # 4.6 K/mm3 (1.3-6.0); Platelet Estimate Normal (NORMAL); RBC Morphology Normal (NORMAL)
[2018-12-14] MEDS: CHOLECALCIFEROL 1,000 UNIT CAPSULE PO SCH (08:00)
--- NOTE | 2018-12-14 08:23 | PN ---
Subjective - Date and Time Seen Date: 12/14/18 Time: 08:12 Subjective Narrative: patient remains pleasantly confused. K is persistent. tele showing NSR with PVC's. T waves are normal . Objective - Review of Systems Generalized/Overall Review: Reports: Weakness Misc: All systems neg except as marked - unreliable due to his dementia - Vitals Vitals: Last Vital Signs Temp 37.2 C 12/14/18 07:16 Pulse 81 12/14/18 07:16 Resp 20 12/14/18 07:16 BP 172/58 H 12/14/18 07:16 Pulse Ox 97 12/14/18 07:16 - Abnormal Lab Findings Abnormal Lab Findings: Abnormal Lab Results 12/13/18 12/14/18 12/14/18 Range/Units 16:37 05:41 05:41 RBC 3.46 L (4.7-6.0) M/mm3 Hgb 10.7 L (13.5-18.0) gm/dL Hct 33.6 L (42.0-52.0) % MCHC 31.8 L (32-36) g/dl Band Neuts % (Manual) 16 H (0-2.0) % Sodium 147 H (132-142) mmol/L Plasma Sodium 148 H (130-142) mmol/L Potassium 3.1 L 3.0 L (3.4-4.6) mmol/L Chloride 114 H (97-106) mmol/L Random Glucose 133 H (70-110) mg/dL - Exam Constitutional: Present: Alert - AAo x 1, Cooperative ENT Exam: Present: hearing grossly normal Neck: Present: supple. Absent: lymphadenopathy (R), lymphadenopathy (L) Respiratory: Present: normal breath sounds, No rales, No wheezing Cardiovascular/Chest: Present: regular rate, rhythm - with premature beats, no JVD, no murmur Abdomen: Present: Normal bowel sounds, soft, nontender, nondistended Extremity: Present: no calf tenderness, pedal edema Assessment/Plan Plan Narrative: Reginald Cohen is going for colonoscopy today for lower GI bleed likely from bleeding divertic versus polyp versus tumor. His hemoglobin has stabilized in the tens but he remains persistently hypokalemic despite having received 8 potassium riders and Klor-Con 40 M EQ p.o. 3 times daily. His magnesium is in the low normal. His telemetry showing normal sinus rhythm with PVCs. His T waves are normal. Patient is n.p.o. for colonoscopy. Will increase his put potassium in in his IVF to 40 M EQ and increase the rate to 150 mL/h. We will also give him 2 g of IV magnesium sulfate and see if that will help his potassium go up. He may proceed with this procedure today. We will admit him to inpatient. - Problems/Diagnosis (1) GI bleeding Problem: Acute (2) Hypokalemia Problem: Acute (3) Vascular dementia of acute onset without behavioral disturbance Problem: Chronic (4) Hypertension Problem: Chronic Qualifiers: Hypertension type: essential hypertension Qualified Code(s): I10 - Essential (primary) hypertension (5) Hyperlipidemia Problem: Chronic Qualifiers: Hyperlipidemia type: unspecified Qualified Code(s): E78.5 - Hyperlipidemia, unspecified (6) Chronic gastroesophageal reflux disease Problem: Chronic
[2018-12-14] MEDS ORDERED: MAGNESIUM SULFATE IN WATER 50 ML IV ONE (09:00)
[2018-12-14] MEDS ORDERED: Memantine Hcl/Donepezil Hcl [Namzaric 28 Mg-10 Mg Capsule] PO SCH (09:00)
[2018-12-14] MEDS: POTASSIUM CHLORIDE 40 MEQ in 0.5 NORMAL SALINE 1,000 ML IV SCH ×3 (09:16→22:52)
--- NOTE | 2018-12-14 10:40 | ANES ---
Anesthesia Pre Procedure Eval Vitals/Labs: Last Vital Signs Temp 37.2 C 12/14/18 07:16 Pulse 90 12/14/18 09:20 Resp 20 12/14/18 07:16 BP 127/67 12/14/18 09:20 Pulse Ox 97 12/14/18 07:16 HOME MEDICATIONS acetaminophen 325 mg capsule 650 mg PO HS PRN cap 11/05/17 [Last Taken Unknown] memantine ER 28 mg-donepezil 10 mg capsule sprinkle,ext.release 24 hr 1 cap PO DAILY 11/13/17 [Last Taken 12/12/18] spironolactone 25 mg tablet 12.5 mg PO DAILY #90 tab 08/05/18 [Last Taken 12/12/18] cholecalciferol (vitamin D3) 2,000 unit tablet 2,000 unit PO DAILY #30 tab 12/02/18 [Last Taken 12/12/18] Amlodipine Besylate 5 mg PO DAILY 12/12/18 [Last Taken 12/12/18] Tamsulosin HCl [Flomax] 0.8 mg PO BID 12/12/18 [Last Taken 12/12/18] Allergies/Adverse Reactions: Allergies Allergy/AdvReac Type Severity Reaction Status Date / Time No Known Allergies Allergy Verified 12/12/18 16:50 - Planned Procedure Planned Procedure: GI BLEED, HYPOKALEMIA Medication List Reviewed:: Yes Allergies Verified: Yes Medical History (Updated 12/12/18 @ 19:19 by Coy Valdes MD) Vascular dementia of acute onset without behavioral disturbance (Chronic) DJD (degenerative joint disease) of knee Onset Date: ~11/2013 GERD (gastroesophageal reflux disease) HTN (hypertension) Onset Date: ~2012 anteroseptal, atypical and inferior wall fixed detect with EF low at 50% on nuclear study, however ECHO on 11/13 did not show and WMA only delayed relaxation an normal LVEF History of BPH Hyperlipidemia Memory loss Onset Date: ~04/02/14 due to vascular dementia Surgical History (Updated 12/12/18 @ 19:19 by Coy Valdes MD) H/O colonoscopy Onset Date: ~08/16/11 David-combined adenomatous and hyperplastic polyp. Repeat 5 yrs. H/O inguinal hernia repair Onset Date: ~04/16/13 Dr. Hernandez-left w/mesh H/O transurethral resection of prostate Onset Date: ~02/25/13 History of excision of lesion Onset Date: ~04/16/13 david- left hip mass-ancrochordon(skin tag). History of stress test Onset Date: ~05/30/16 treadmill-normal Hx laparoscopic cholecystectomy Onset Date: ~02/19/13 Dr. Hernandez-w/cholangiogram Internal hemorrhoid Onset Date: ~11/05/17 treated with infrared in 1994 [facility] Family History (Updated 11/05/17 @ 11:44 by Tomi Richter LPN) Sister Diabetes Heart disease Father Gunshot wound Mother Myocardial infarction CVA (cerebral vascular accident) Brother Myocardial infarction Sister No problems noted. - Family Anesthesia History Family History:: no untoward family reactions to anesthesia, no familial bleeding tendencies, no family history of clotting disorders, no family history of premature - Airway/Neck/Teeth Within Normal Limits:: Yes Teeth Condition: missing Neck Exam: full range of motion Mallampatti Score: 3 Thyromental (T-M) distance: > 6 cm Mandibulo Hyoid distance: > 3 cm - Respiratory Respiratory Physical: lungs clear - Cardiovascular Tolerate Activity: Poor Heart Sounds: S1 & S2, Regular - Anesthesia Assessment and Plan ASA Class: PS, III Anesthesia Type Plan: MAC
[2018-12-14] MEDS ORDERED: RINGER'S SOLUTION,LACTATED 1,000 ML IV PRN (11:02)
--- NOTE | 2018-12-14 11:25 | OR ---
Operative Report - Dictated Report Narrative: Date of Service: 12/14/18 Procedure: Diagnostic colonoscopy Pre-procedure diagnosis: Rectal bleeding Post-procedure diagnosis: Left-sided colitis Surgeon: Dr. Viridiana Mcclellan D.O. Anesthesia: MAC Indication for procedure: Reginald is a pleasant 73-year-old gentleman who was admitted for GI bleeding. Description of procedure: After appropriate informed consent was obtained, patient was taken to the endoscopy suite placed in the left lateral decubitus position. Monitors were applied, appropriate sedation was achieved. A digital rectal exam was done which was normal. A lubricated colonoscope was inserted and advanced to the cecum. Cecal landmarks were identified, the scope was slowly and sequentially withdrawn. As the scope was withdrawn from 60 cm in the transverse colon down there were mucosal changes consistent with colitis. Cold biopsies were taken of the most abnormal area. No other abnormalities were seen. Complications: none Specimens to pathology: Transverse colon biopsies Estimated blood loss: minimal Prep quality: Deep Water prep score 1 Disposition: Patient will be admitted back to the floor.
--- NOTE | 2018-12-14 11:26 | ANES ---
Post Anesthesia Discharge - Transfer of Care Transfer of Care handoff given to nurse: Yes - Discharge from PACU Discharge from PACU when meets criteria: Yes - Discharge to ASU Discharge to ASU-no complications/pt stable: Yes
[2018-12-14] MEDS: amLODIPine BESYLATE 5 MG TABLET PO SCH (11:30)
--- NOTE | 2018-12-14 11:36 | ANES ---
Post Anesthesia Assessment - Vital Signs Vitals: Last Vital Signs Temp 36.9 C 12/14/18 11:25 Pulse 75 12/14/18 11:30 Resp 20 12/14/18 11:25 BP 135/74 12/14/18 11:30 Pulse Ox 98 12/14/18 11:25 Airway Patency: Normal - Mental Status Level Of Consciousness: Awake - Pain Level Pain Score: 0 - N/V Assessment Nausea/Vomiting Presence: None Dehydration:: No
[2018-12-14 13:16] LABS: Hematocrit 32.3 % (42.0-52.0); Hemoglobin 10.3 gm/dL (13.5-18.0); Mean Cell Volume 97.3 fl (78-100); Mean Corpuscular Hgb Conc 31.9 g/dl (32-36); Mean Platelet Volume 8.7 fl (8-11.3); Platelet Count 381 K/mm3 (150-450); Red Blood Count 3.32 M/mm3 (4.7-6.0); Red Cell Distribution Width 12.5 % (11.5-14.0); White Blood Count 9.3 K/mm3 (4.0-10.5)
[2018-12-14 13:17] LABS: Total Cells Counted 100
[2018-12-14 13:24] LABS: Anion Gap 9.8 mmol/L (6.8-13.8); BUN/Creatinine Ratio 9.7 (9.0-21.6); Calcium * 7.9 mg/dL (7.9-10.9); Carbon Dioxide 26.2 mmol/L (24-32.6); Estimated Creat Clear 71.3
[2018-12-14 13:35] LABS: Band 12 % (0-2.0); Eosinophil 3 % (0-3); Lymphocyte 28 % (20-51); Monocyte 11 % (0-9); Neutrophil 46 % (42-75); Neutrophil # 4.3 K/mm3 (1.3-6.0)
[2018-12-14 13:36] LABS: Platelet Estimate Normal (NORMAL)
[2018-12-14 13:37] LABS: Hypochromia Trace; Polychromasia Trace
[2018-12-14] MEDS ORDERED: POTASSIUM CHLORIDE IN WATER 100 ML IV SCH (13:45)
[2018-12-14] MEDS: POTASSIUM CHLORIDE 20 MEQ TABLET.SA PO SCH ×2 (14:15→16:54)
[2018-12-14] MEDS ORDERED: DONEPEZIL HCL 10 MG TABLET PO ONE (15:00)
[2018-12-14] MEDS ORDERED: MEMANTINE HCL 10 MG TABLET PO ONE (15:00)
[2018-12-14] MEDS: TAMSULOSIN HCL 0.4 MG CAP.SR.24H PO SCH (16:59)
[2018-12-14 18:50] LABS: Urine Bilirubin 1 mg/dl (NEGATIVE); Urine Ketone Negative (NEGATIVE); Urine Nitrite Negative (NEGATIVE); Urine Protein 15 mg/dL (NEGATIVE); Urine Specific Gravity >=1.030 SP.GR. (1.005-1.030); Urine Urobilinogen Normal (NORMAL)
[2018-12-14 18:56] LABS: Urine Appearance Clear (CLEAR); Urine Bacteria TRACE; Urine Blood 5 /ul (NEGATIVE); Urine Color Dark Yellow; Urine RBC 0-5 /hpf (0-5); Urine WBC 0-5 /hpf (0-5)
[2018-12-15] MEDS: POTASSIUM CHLORIDE 40 MEQ in 0.5 NORMAL SALINE 1,000 ML IV SCH ×2 (05:29→13:33)
[2018-12-15 05:43] LABS: Hematocrit 30.4 % (42.0-52.0); Hemoglobin 9.5 gm/dL (13.5-18.0); Mean Cell Volume 98.1 fl (78-100); Mean Corpuscular Hemoglobin 30.6 pg (27-31); Mean Corpuscular Hgb Conc 31.3 g/dl (32-36); Mean Platelet Volume 9.2 fl (8-11.3); Platelet Count 355 K/mm3 (150-450); Red Cell Distribution Width 12.6 % (11.5-14.0); White Blood Count 8.9 K/mm3 (4.0-10.5)
[2018-12-15 05:58] LABS: Total Cells Counted 100
[2018-12-15 06:03] LABS: Albumin * 1.7 gm/dl (3.4-5.0); Anion Gap 9.7 mmol/L (6.8-13.8); BUN/Creatinine Ratio 7.8 (9.0-21.6); Bilirubin, Total 0.9 mg/dL (0.0-1.1); Ca. Corrected For Albumin 9.1 mg/dL (8.4-10.2); Calcium * 7.6 mg/dL (7.9-10.9); Carbon Dioxide 25.1 mmol/L (24-32.6); Potassium 3.8 mmol/L (3.4-4.6); Total Protein 5.7 gm/dL (6.2-8.2)
[2018-12-15 06:14] LABS: Band 13 % (0-2.0); Eosinophil 9 % (0-3); Immature Granulocyte 2 (0-1); Lymphocyte 26 % (20-51); Monocyte 11 % (0-9); Neutrophil 39 % (42-75); Neutrophil # 3.5 K/mm3 (1.3-6.0)
[2018-12-15 06:15] LABS: Hypochromia Trace; Platelet Estimate Normal (NORMAL)
[2018-12-15] MEDS ORDERED: MEMANTINE HCL 10 MG TABLET PO SCH (09:00)
[2018-12-15] MEDS ORDERED: PANTOPRAZOLE SODIUM 40 MG in NORMAL SALINE 100 ML IV SCH (09:00)
[2018-12-15] MEDS ORDERED: CALCIUM CARBONATE 500 MG TAB.CHEW PO SCH (09:00)
[2018-12-15] MEDS: CHOLECALCIFEROL 1,000 UNIT CAPSULE PO SCH (09:01)
[2018-12-15] MEDS: amLODIPine BESYLATE 5 MG TABLET PO SCH (09:01)
[2018-12-15] MEDS: POTASSIUM CHLORIDE 20 MEQ TABLET.SA PO SCH ×2 (09:01→13:30)
--- NOTE | 2018-12-15 09:08 | DS ---
Date of Discharge:: 12/15/18 Description of Stay: 73-year-old -[place] male admitted for lower GI bleeding was evaluated at bedside and was found to be afebrile and in no acute distress. Patient denies any recurrence of bloody stools or abdominal pain. Inpatient colonoscopy performed yesterday revealed colitis and ruled out ongoing bleeding. Patient maintains stable vitals and hypokalemia has resolved after multiple replacements both IV and oral. Patient's family was contacted and they felt that he should be discharged to his regular home with ongoing support with home health and the meal delivery services that he receives. Recommendations for more frequent visits by home health to check on patient and assist with management of his medication were made and the family agreed to relay the message. Therefore after thorough evaluation of the patient decision to discharge home was made. We will discharge patient with a prescription for oral calcium supplements and instructions to follow-up with myself his PCP in a week. Patient was also ordered to undergo CBC to evaluate his hemoglobin levels and a CMP to evaluate his electrolytes in 1 week. Procedures Performed: none Results and Findings: Pending Mircobiology Results 12/12/18 16:30 Stool Stool Culture - Preliminary No Pathogens Isolated Lab Pending Results 12/12/18 12:04: WBC 12.2 H, RBC 3.92 L, Hgb 12.1 L, Hct 37.4 L, MCV 95.4, MCH 30.9, MCHC 32.4, RDW 12.1, Plt Count 374, MPV 8.6, Immature Gran % (Auto) 0.30, Immature Gran # (Auto) 0.04 H, Neutrophils % 53.6, Lymphocytes % 26.6, Monocytes % 12.2 H, Eosinophils % 6.9 H, Basophils % 0.4, Nucleated RBC % 0.0, Neutrophils # 6.6 H, Lymphocytes # 3.25, Monocytes # 1.5 H, Eosinophils # 0.8 H, Absolute Basophils 0.1 12/12/18 12:04: Sodium 141, Plasma Sodium 141, Potassium 2.6 L D, Chloride 105, Carbon Dioxide 27.5, Anion Gap 11.1, BUN 13, Creatinine 1.43 H, Est GFR (Non-Af Amer) 63 D, BUN/Creatinine Ratio 9.1, Random Glucose 118 H, Calcium 8.2, Calcium Adj for Albumin 9.2, Total Bilirubin 2.1 H, AST 12, ALT 5 L, Alkaline Phosphatase 51, Total Protein 7.0, Albumin 2.4 L 12/12/18 12:04: Stool Occult Blood Negative 12/12/18 12:04: Troponin I 0.060 12/12/18 12:04: Magnesium 1.7 12/12/18 12:04: Blood Type O Positive, Antibody Screen Negative 12/12/18 13:25: Stool Occult Blood Positive H 12/12/18 14:30: Hgb 11.2 L, Hct 35.1 L 12/12/18 17:00: Urine Color Dark yellow, Urine Appearance Clear, Urine pH 5.5, Ur Specific [place] 1.030, Urine Protein 30 H, Urine Glucose (UA) Negative, Urine Ketones 50, Urine Blood 25 H, Urine Nitrate Negative, Urine Bilirubin Negative, Prot Sulfosalicylic Acd 1+, Urine Urobilinogen Normal, Ur Leukocyte Esterase Negative, Urine RBC 0-5, Urine WBC 0-5, Ur Epithelial Cells 0-5, Urine Bacteria None seen, Urine Culture Comments No culture indicated 12/12/18 20:10: Hgb 12.6 L, Hct 39.5 L 12/13/18 04:00: Sodium 145 H, Plasma Sodium 146 H, Potassium 2.7 L, Chloride 111 H, Carbon Dioxide 25.9, Anion Gap 10.8, BUN 10, Creatinine 1.17, Est GFR (Non-Af Amer) 79 D, BUN/Creatinine Ratio 8.5 L, Random Glucose 142 H, Calcium 7.5 L 12/13/18 04:00: WBC 8.9 D, RBC 3.34 L, Hgb 10.4 L, Hct 32.4 L, MCV 97.0, MCH 31.1 H, MCHC 32.1, RDW 12.2, Plt Count 290, MPV 11.0 12/13/18 16:37: Potassium 3.1 L 12/14/18 05:41: WBC 9.7, RBC 3.46 L, Hgb 10.7 L, Hct 33.6 L, MCV 97.1, MCH 30.9, MCHC 31.8 L, RDW 12.4, Plt Count 392, MPV 8.8, Neutrophils % (Manual) 47, Band Neuts % (Manual) 16 H, Lymphocytes % (Manual) 25, Monocytes % (Manual) 8, Eosinophils % (Manual) 2, Immature Granulocytes 1, Neutrophils # (Manual) 4.6, Lymphocytes # (Manual) 2.4, Monocytes # (Manual) 0.8, Eosinophils # (Manual) 0.2, Atypic/Reactive Lymphs 1, Platelet Estimate Normal, RBC Morphology Normal 12/14/18 05:41: Sodium 147 H, Plasma Sodium 148 H, Potassium 3.0 L, Chloride 114 H, Carbon Dioxide 25.9, Anion Gap 10.1, BUN 10, Creatinine 1.08, Est GFR (Non-Af Amer) 86, BUN/Creatinine Ratio 9.3, Random Glucose 133 H, Calcium 7.9 12/14/18 05:41: Magnesium 1.5 12/14/18 11:11: Pathology Specimen Spec to path 12/14/18 13:10: Sodium 146 H, Plasma Sodium 146 H, Potassium 3.0 L, Chloride 113 H, Carbon Dioxide 26.2, Anion Gap 9.8, BUN 10, Creatinine 1.03, Est GFR (Non-Af Amer) 91, BUN/Creatinine Ratio 9.7, Random Glucose 117 H, Calcium 7.9 12/14/18 13:10: WBC 9.3, RBC 3.32 L, Hgb 10.3 L, Hct 32.3 L, MCV 97.3, MCH 31.0, MCHC 31.9 L, RDW 12.5, Plt Count 381, MPV 8.7, Neutrophils % (Manual) 46, Band Neuts % (Manual) 12 H, Lymphocytes % (Manual) 28, Monocytes % (Manual) 11 H, Eosinophils % (Manual) 3, Neutrophils # (Manual) 4.3, Lymphocytes # (Manual) 2.6, Monocytes # (Manual) 1.0, Eosinophils # (Manual) 0.3, Platelet Estimate Normal, Polychromasia Trace, Hypochromasia Trace 12/14/18 18:46: Urine Color Dark yellow, Urine Appearance Clear, Urine pH 6.0, Ur Specific [place] >=1.030, Urine Protein 15 H, Urine Glucose (UA) Negative, Urine Ketones Negative, Urine Blood 5 H, Urine Nitrate Negative, Urine Bilirubin 1 H, Urine Ictotest Negative, Prot Sulfosalicylic Acd Negative, Urine Urobilinogen Normal, Ur Leukocyte Esterase Negative, Urine RBC 0-5, Urine WBC 0- 5, Ur Epithelial Cells None seen, Urine Bacteria Trace 12/15/18 05:30: WBC 8.9, RBC 3.10 L, Hgb 9.5 L, Hct 30.4 L, MCV 98.1, MCH 30.6, MCHC 31.3 L, RDW 12.6, Plt Count 355, MPV 9.2, Neutrophils % (Manual) 39 L, Band Neuts % (Manual) 13 H, Lymphocytes % (Manual) 26, Monocytes % (Manual) 11 H, Eosinophils % (Manual) 9 H, Immature Granulocytes 2 H, Neutrophils # (Manual) 3.5, Lymphocytes # (Manual) 2.3, Monocytes # (Manual) 1.0, Eosinophils # (Manual) 0.8 H, Platelet Estimate Normal, Hypochromasia Trace 12/15/18 05:30: Sodium 143 H, Plasma Sodium 143 H, Potassium 3.8 D, Chloride 112 H, Carbon Dioxide 25.1, Anion Gap 9.7, BUN 8, Creatinine 1.03, Est GFR (Non- Af Amer) 91, BUN/Creatinine Ratio 7.8 L, Random Glucose 109, Calcium 7.6 L, Calcium Adj for Albumin 9.1, Total Bilirubin 0.9, AST 13, ALT 4 L, Alkaline Phosphatase 36 L, Total Protein 5.7 L, Albumin 1.7 L Discharge Location: Home Disposition: Home Health Service Home Health Agency: [facility] Home Health Condition: Fair Face to Face Encounter completed per [facility] Guidelines: No Discharge Activity: Activity as tolerated Discharge Diet: General/regular food Referrals: Carmencita Landrum MD [Primary Care Provider] - Additional Patient Instructions (free text): -Please make TCM appointment unless halfway discharge, or if following up with outside provider. Thank you! Rula @ [id number]. Prescriptions (Any new or edited meds): Calcium Carbonate/Vitamin D3 [Calcium 500 mg-Vit D3 600 Unit] 1 ea PO BID #60 tab Complete Home Medications List: Complete Home Medication List: acetaminophen 325 mg capsule 650 mg PO HS PRN cap 11/05/17 memantine ER 28 mg-donepezil 10 mg capsule sprinkle,ext.release 24 hr 1 cap PO DAILY 11/13/17 spironolactone 25 mg tablet 12.5 mg PO DAILY #90 tab 08/05/18 cholecalciferol (vitamin D3) 2,000 unit tablet 2,000 unit PO DAILY #30 tab 12/02/18 Amlodipine Besylate 5 mg PO DAILY 12/12/18 Tamsulosin HCl [Flomax] 0.8 mg PO BID 12/12/18 Calcium Carbonate/Vitamin D3 [Calcium 500 mg-Vit D3 600 Unit] 1 ea PO BID #60 tab 12/15/18
[2018-12-15] MEDS ORDERED: PANTOPRAZOLE SODIUM 40 MG TABLET.EC PO SCH (13:09)
[2018-12-15 13:26] LABS: Hematocrit 35.4 % (42.0-52.0); Hemoglobin 11.1 gm/dL (13.5-18.0)
[2018-12-15 14:51] VITALS: BP 149/71
[2018-12-15] MEDS ORDERED: DONEPEZIL HCL 10 MG TABLET PO SCH (21:00)
== END 2018-12-15 15:20 | disposition home health service (06) | DRG 392 ==
LOC: MS 11:43 → ER 11:43 → MS 16:30
PROVIDERS: ADMIT Internal Medicine; ATTEND Family Medicine
DX: E83.51 Hypocalcemia; E87.6 Hypokalemia; K52.9 Noninfective gastroenteritis and colitis, unspecified; I10 Essential (primary) hypertension; N19 Unspecified kidney failure; E87.0 Hyperosmolality and hypernatremia; E78.5 Hyperlipidemia, unspecified; K21.9 Gastro-esophageal reflux disease without esophagitis; F01.50 Vascular dementia, unspecified severity, without behavioral disturbance, psychotic disturbance, mood disturbance, and anxiety; Z87.891 Personal history of nicotine dependence; K62.5 Hemorrhage of anus and rectum
CPT/HCPCS: 36415; 80048; 80053; 81001; 82272; 83735; 84132; 84484; 85007; 85014; 85018; 85025; 85027; 86850; 87045; 87046; 87177; 87209; 88305; 93005; 96361; 96365; 96366; 99285; G0378

== ENCOUNTER 2018-12-22 14:09 | Inpatient (IN) ==
[2018-12-22 14:52] LABS: Hematocrit 37.5 % (42.0-52.0); Hemoglobin 11.7 gm/dL (13.5-18.0); Mean Cell Volume 98.2 fl (78-100); Mean Corpuscular Hemoglobin 30.6 pg (27-31); Mean Corpuscular Hgb Conc 31.2 g/dl (32-36); Mean Platelet Volume 9.4 fl (8-11.3); Platelet Count 592 K/mm3 (150-450); Red Blood Count 3.82 M/mm3 (4.7-6.0); Red Cell Distribution Width 13.5 % (11.5-14.0); White Blood Count 10.5 K/mm3 (4.0-10.5)
[2018-12-22 14:55] LABS: Total Cells Counted 100
[2018-12-22 15:09] LABS: Albumin * 2.1 gm/dl (3.4-5.0); BUN/Creatinine Ratio 6.8 (9.0-21.6); Bilirubin, Total 1.5 mg/dL (0.0-1.1); Ca. Corrected For Albumin 9.9 mg/dL (8.4-10.2); Calcium * 8.7 mg/dL (7.9-10.9); Carbon Dioxide 31.3 mmol/L (24-32.6); Total Protein 7.4 gm/dL (6.2-8.2)
[2018-12-22 15:19] LABS: Atypical (Reactive) Lymph 4 % (0-2); Band 5 % (0-2.0); Eosinophil 2 % (0-3); Lymphocyte 22 % (20-51); Monocyte 11 % (0-9); Neutrophil 56 % (42-75); Neutrophil # 5.9 K/mm3 (1.3-6.0); Platelet Estimate Increased (NORMAL)
[2018-12-22 15:20] LABS: RBC Morphology Normal (NORMAL)
[2018-12-22 15:36] LABS: Potassium 2.3 mmol/L (3.4-4.6)
[2018-12-22] MEDS ORDERED: RINGER'S SOLUTION,LACTATED 1,000 ML IV ONE (16:26)
[2018-12-22] MEDS ORDERED: POTASSIUM CHLORIDE 40 MEQ in NORMAL SALINE 1,000 ML IV ONE (16:32)
[2018-12-22] MEDS ORDERED: ACETAMINOPHEN 325 MG TABLET PO PRN (16:37)
[2018-12-22] MEDS ORDERED: NORMAL SALINE 1,000 ML IV ONE (16:51)
--- NOTE | 2018-12-22 16:57 | PN ---
Progess Note - Interim Date: 12/22/18 Time: 16:56 Narrative: 12/22/18 16:56 Please refer to today's clinic visit note for H&P.
[2018-12-22] MEDS: NORMAL SALINE 2,000 ML IV ONE ×2 (17:15→18:14)
[2018-12-22] MEDS: TAMSULOSIN HCL 0.4 MG CAP.SR.24H PO SCH (17:28)
[2018-12-22] MEDS: POTASSIUM CHLORIDE IN WATER 100 ML IV SCH ×4 (17:28→21:05)
[2018-12-22 17:52] LABS: CRP 10.9 mg/dL (0.0-0.9)
[2018-12-22] MEDS ORDERED: FLU VACC QS2019-20(6MOS UP)/PF 60 MCG/0.5 ML SYRINGE IM ONE (18:00)
[2018-12-22] MEDS: CALCIUM CARBONATE/VITAMIN D3 1 TAB TABLET PO SCH (20:04)
[2018-12-22 21:23] LABS: Anion Gap 13.1 mmol/L (6.8-13.8); BUN/Creatinine Ratio 8.8 (9.0-21.6); Calcium * 7.4 mg/dL (7.9-10.9); Carbon Dioxide 28.1 mmol/L (24-32.6); Estimated Creat Clear 45.8
[2018-12-22 21:40] LABS: Potassium 2.2 mmol/L (3.4-4.6)
[2018-12-22] MEDS ORDERED: MAGNESIUM SULFATE IN WATER 50 ML IV ONE (21:52)
[2018-12-22] MEDS ORDERED: PANTOPRAZOLE SODIUM 40 MG in NORMAL SALINE 100 ML IV SCH (22:00)
[2018-12-23] MEDS: 0.5 NORMAL SALINE 1,000 ML IV PRN ×3 (01:54→18:12)
[2018-12-23] MEDS: POTASSIUM CHLORIDE IN WATER 100 ML IV SCH ×10 (02:04→23:05)
[2018-12-23 05:55] LABS: Albumin * 1.7 gm/dl (3.4-5.0); Anion Gap 15.7 mmol/L (6.8-13.8); Bilirubin, Total 1.1 mg/dL (0.0-1.1); Calcium * 7.5 mg/dL (7.9-10.9); Carbon Dioxide 27.9 mmol/L (24-32.6); Hematocrit 30.9 % (42.0-52.0); Hemoglobin 9.6 gm/dL (13.5-18.0); Magnesium 1.7 mg/dL (1.2-2.8); Mean Cell Volume 100.3 fl (78-100); Mean Corpuscular Hemoglobin 31.2 pg (27-31); Mean Corpuscular Hgb Conc 31.1 g/dl (32-36); Mean Platelet Volume 9.3 fl (8-11.3); Neutrophil # 5.8 K/mm3 (1.3-6.0); Neutrophil % 54.9 % (42-75.0); Platelet Count 508 K/mm3 (150-450); Potassium 2.6 mmol/L (3.4-4.6); Red Blood Count 3.08 M/mm3 (4.7-6.0); Red Cell Distribution Width 13.5 % (11.5-14.0); White Blood Count 10.5 K/mm3 (4.0-10.5)
[2018-12-23] MEDS: PANTOPRAZOLE SODIUM 40 MG TABLET.EC PO SCH (07:03)
[2018-12-23] MEDS: MEMANTINE HCL 10 MG TABLET PO SCH ×2 (08:34→20:59)
[2018-12-23] MEDS: CHOLECALCIFEROL 1,000 UNIT CAPSULE PO SCH (08:34)
[2018-12-23] MEDS: SPIRONOLACTONE 25 MG TABLET PO SCH (08:34)
[2018-12-23] MEDS: DONEPEZIL HCL 10 MG TABLET PO SCH (08:35)
[2018-12-23] MEDS: POTASSIUM CHLORIDE 20 MEQ TABLET.SA PO SCH (08:35)
[2018-12-23] MEDS: CALCIUM CARBONATE/VITAMIN D3 1 TAB TABLET PO SCH ×2 (08:35→20:59)
[2018-12-23] MEDS: amLODIPine BESYLATE 5 MG TABLET PO SCH (08:35)
--- NOTE | 2018-12-23 08:54 | PN ---
Subjective - Date and Time Seen Date: 12/23/18 Time: 08:46 Subjective Narrative: 73-year-old -[place] male admitted for severe hypokalemia, severe hypernatremia, and severe dehydration was evaluated at bedside and was found to be afebrile and in no acute distress. Today patient is currently receiving IV hydration as well as potassium replacement to address his hypokalemia. He is tolerating the treatment without any issues and vitals have stabilized, his tachycardia has resolved. Patient's IV fluids were switched to half-normal saline in order to avoid worsening hypernatremia. Labs this morning demonstrated mild improvement of his hypokalemia and high per natremia, will continue hydrating patient with half-normal saline and ordered daily potassium replacement. Consult to general surgery has been placed in order to rule out active lower GI bleeding, however nursing staff deny any recurrence of GI bleeding during the night or any other adverse events. Objective - Review of Systems Generalized/Overall Review: Reports: Weakness, Weight loss EENTM: Reports: No Symptoms Reported Respiratory: Reports: No Symptoms Reported Cardiac: Reports: No Symptoms Reported Abdominal: Reports: Bright blood from rectum Genitourinary Symptoms: Reports: No Symptoms Reported Musculoskeletal Complaints: Reports: No Symptoms Reported Neurological: Reports: Weakness, Pre-existing Deficit Endocrine: Reports: No Symptoms Reported - Vitals Vitals: Last Vital Signs Temp 36.3 C 12/23/18 07:25 Pulse 70 12/23/18 08:35 Resp 20 12/23/18 07:25 BP 116/57 12/23/18 08:35 Pulse Ox 100 12/23/18 07:25 - Abnormal Lab Findings Abnormal Lab Findings: Abnormal Lab Results 12/22/18 12/22/18 12/22/18 Range/Units 14:29 14:29 17:12 RBC 3.82 L (4.7-6.0) M/mm3 Hgb 11.7 L (13.5-18.0) gm/dL Hct 37.5 L (42.0-52.0) % MCV (78-100) fl MCH (27-31) pg MCHC 31.2 L (32-36) g/dl Plt Count 592 H (150-450) K/mm3 Immature Gran % (Auto) (0.001-0.429) % Immature Gran # (Auto) (0.000-0.0310) K/mm3 Band Neuts % (Manual) 5 H (0-2.0) % Monocytes % (0.0-9) % Monocytes % (Manual) 11 H (0-9) % Eosinophils % (0.0-3.0) % Monocytes # (0.0-1.0) k/mm3 Monocytes # (Manual) 1.2 H (0.0-1.0) k/mm3 Atypic/Reactive Lymphs 4 H (0-2) % Platelet Estimate Increased H (NORMAL) ESR 94 H (0-10) mm/hr Sodium 153 H (132-142) mmol/L Plasma Sodium 153 H (130-142) mmol/L Potassium 2.3 L* D (3.4-4.6) mmol/L Chloride 113 H (97-106) mmol/L Anion Gap (6.8-13.8) mmol/L Creatinine 1.76 H D (0.4-1.4) mg/dL Est GFR (Non-Af Amer) 49 L D (60-130) mL/min BUN/Creatinine Ratio 6.8 L (9.0-21.6) Random Glucose 112 H (70-110) mg/dL Calcium (7.9-10.9) mg/dL Total Bilirubin 1.5 H (0.0-1.1) mg/dL ALT 14 L (19-67) U/L Alkaline Phosphatase 46 L (50-170) U/L C-Reactive Prot, Quant (0.0-0.9) mg/dL Total Protein (6.2-8.2) gm/dL Albumin 2.1 L (3.4-5.0) gm/dl Stool Occult Blood 12/22/18 12/22/18 12/22/18 Range/Units 17:12 21:10 21:43 RBC (4.7-6.0) M/mm3 Hgb (13.5-18.0) gm/dL Hct (42.0-52.0) % MCV (78-100) fl MCH (27-31) pg MCHC (32-36) g/dl Plt Count (150-450) K/mm3 Immature Gran % (Auto) (0.001-0.429) % Immature Gran # (Auto) (0.000-0.0310) K/mm3 Band Neuts % (Manual) (0-2.0) % Monocytes % (0.0-9) % Monocytes % (Manual) (0-9) % Eosinophils % (0.0-3.0) % Monocytes # (0.0-1.0) k/mm3 Monocytes # (Manual) (0.0-1.0) k/mm3 Atypic/Reactive Lymphs (0-2) % Platelet Estimate (NORMAL) ESR (0-10) mm/hr Sodium 153 H (132-142) mmol/L Plasma Sodium 153 H (130-142) mmol/L Potassium 2.2 L* (3.4-4.6) mmol/L Chloride 114 H (97-106) mmol/L Anion Gap (6.8-13.8) mmol/L Creatinine 1.60 H (0.4-1.4) mg/dL Est GFR (Non-Af Amer) 55 L (60-130) mL/min BUN/Creatinine Ratio 8.8 L (9.0-21.6) Random Glucose 111 H (70-110) mg/dL Calcium 7.4 L (7.9-10.9) mg/dL Total Bilirubin (0.0-1.1) mg/dL ALT (19-67) U/L Alkaline Phosphatase (50-170) U/L C-Reactive Prot, Quant 10.9 H (0.0-0.9) mg/dL Total Protein (6.2-8.2) gm/dL Albumin (3.4-5.0) gm/dl Stool Occult Blood Positive H 12/23/18 12/23/18 Range/Units 05:30 05:30 RBC 3.08 L (4.7-6.0) M/mm3 Hgb 9.6 L (13.5-18.0) gm/dL Hct 30.9 L (42.0-52.0) % MCV 100.3 H (78-100) fl MCH 31.2 H (27-31) pg MCHC 31.1 L (32-36) g/dl Plt Count 508 H (150-450) K/mm3 Immature Gran % (Auto) 0.80 H (0.001-0.429) % Immature Gran # (Auto) 0.08 H (0.000-0.0310) K/mm3 Band Neuts % (Manual) (0-2.0) % Monocytes % 10.1 H (0.0-9) % Monocytes % (Manual) (0-9) % Eosinophils % 3.2 H (0.0-3.0) % Monocytes # 1.1 H (0.0-1.0) k/mm3 Monocytes # (Manual) (0.0-1.0) k/mm3 Atypic/Reactive Lymphs (0-2) % Platelet Estimate (NORMAL) ESR (0-10) mm/hr Sodium 152 H (132-142) mmol/L Plasma Sodium 152 H (130-142) mmol/L Potassium 2.6 L (3.4-4.6) mmol/L Chloride 111 H (97-106) mmol/L Anion Gap 15.7 H (6.8-13.8) mmol/L Creatinine 1.44 H (0.4-1.4) mg/dL Est GFR (Non-Af Amer) (60-130) mL/min BUN/Creatinine Ratio (9.0-21.6) Random Glucose 114 H (70-110) mg/dL Calcium 7.5 L (7.9-10.9) mg/dL Total Bilirubin (0.0-1.1) mg/dL ALT 8 L (19-67) U/L Alkaline Phosphatase 38 L (50-170) U/L C-Reactive Prot, Quant (0.0-0.9) mg/dL Total Protein 6.0 L (6.2-8.2) gm/dL Albumin 1.7 L (3.4-5.0) gm/dl Stool Occult Blood - Exam Constitutional: Present: Alert, Cooperative, Well developed, Well nourished, No distress, Elderly ENT Exam: Present: normal ENT inspection, hearing grossly normal, pharynx normal, TMs normal Neck: Present: non-tender, full range of motion, supple, normal inspection, trachea midline Breasts: Present: Exam deferred Respiratory: Present: chest non-tender, lungs clear, normal breath sounds, no respiratory distress, no accessory muscle use Cardiovascular/Chest: Present: normal peripheral pulses, regular rate, rhythm, no chest tenderness, no edema, no gallop, no JVD, no murmur, no rub Abdomen: Present: Normal bowel sounds, soft, nontender, nondistended, no rebound tenderness, no hepatospenomegaly, no masses /Rectal: Present: Exam deferred Extremity: Present: normal range of motion, non-tender, normal inspection, no pedal edema, no calf tenderness Skin Exam: Present: normal color, warm/dry, no cyanosis Lymphatic: Present: no adenopathy Neurologic: Present: disoriented x 3 Appearance: Present: appropriate appearance, appropriate insight, neat, impaired recent memory, impaired remote memory Eye contact: Present: cooperative, good eye contact, decreased rate of speech Thoughts: Present: no apparent hallucination Assessment/Plan Plan Narrative: We will continue to administer IV half-normal saline, potassium replacement, IV Protonix, and follow-up with recommendations from general surgery. Follow-up BMP has been ordered for 1 PM this afternoon to reassess electrolytes. In hospital physical therapy has been ordered to address physical deconditioning and possible problems with balance. - Problems/Diagnosis (1) GI bleeding Problem: Acute Qualifiers: (2) Hypokalemia Problem: Acute (3) Vascular dementia of acute onset without behavioral disturbance Problem: Chronic (4) Severe dehydration Problem: Acute (5) Hypernatremia Problem: Acute (6) Physical deconditioning Problem: Acute
[2018-12-23] MEDS ORDERED: [UNRECOGNIZED DRUG - OTHER] PO SCH (09:00)
[2018-12-23] MEDS ORDERED: DONEPEZIL PO SCH (09:00)
[2018-12-23] MEDS ORDERED: MEMANTINE PO SCH (09:00)
[2018-12-23] MEDS: METHYLPREDNISOLONE SOD SUCC/PF 125 MG/2 ML VIAL IV SCH ×2 (11:57→19:00)
[2018-12-23] MEDS: CALCIUM CARBONATE 500 MG TAB.CHEW PO SCH (11:58)
[2018-12-23 12:46] LABS: Folate 6.9 ng/mL (8.6-58.9)
[2018-12-23 13:39] LABS: Anion Gap 10.9 mmol/L (6.8-13.8); BUN/Creatinine Ratio 10.1 (9.0-21.6); Calcium * 7.7 mg/dL (7.9-10.9); Carbon Dioxide 27.7 mmol/L (24-32.6); Estimated Creat Clear 61.6; Potassium 2.6 mmol/L (3.4-4.6)
[2018-12-23] MEDS: TAMSULOSIN HCL 0.4 MG CAP.SR.24H PO SCH (17:07)
--- NOTE | 2018-12-23 20:42 | CONS ---
HPI - General Date of Service: 12/23/18 Source: RN/MD, RN notes reviewed, old records Exam Limitations: other - dementia - History of Present Illness Timing/Duration: unsure Associated Symptoms: denies symptoms Allergies/Adverse Reactions: Allergies No Known Allergies Allergy (Verified 12/22/18 17:27) Home Medications: Home Medications Medication Instructions Recorded Last Taken acetaminophen 325 mg capsule 650 mg PO HS PRN cap 11/05/17 Unknown memantine ER 28 mg-donepezil 10 mg 1 cap PO DAILY 11/13/17 12/12/18 capsule sprinkle,ext.release 24 hr spironolactone 25 mg tablet 12.5 mg PO DAILY #90 tab 08/05/18 12/12/18 cholecalciferol (vitamin D3) 2,000 2,000 unit PO DAILY #30 tab 12/02/18 12/12/18 unit tablet Amlodipine Besylate 5 mg PO DAILY 12/12/18 12/12/18 Tamsulosin HCl [Flomax] 0.8 mg PO BID 12/12/18 12/12/18 Calcium Carbonate/Vitamin D3 1 ea PO BID #60 tab 12/15/18 Unknown [Calcium 500 mg-Vit D3 600 Unit] Pantoprazole Sodium [Protonix] 40 mg PO DAILY #30 mg 12/15/18 Unknown Procedures Colonoscopy (11/28/00) Endoscopic polypectomy of large intestine (08/16/11) Excision of Transverse Colon, Via Natural or Artificial Opening Endoscopic, Diagnostic (12/14/18) Intraoperative cholangiogram (02/19/13) Laparoscopic cholecystectomy (02/19/13) Other and open repair of indirect inguinal hernia with graft or prosthesis (04/16/13) Other cystoscopy (11/04/12) Other local excision or destruction of lesion or tissue of skin and subcutaneous tissue (04/16/13) Medications - Medications Current Medications: Current Medications Amlodipine Besylate (Norvasc) 5 mg PO DAILY [facility] Stop: 01/22/19 09:01 Last Admin: 12/23/18 08:35 Dose: 5 mg Documented by: Calcium Carbonate/Glycine (Tums) 500 mg PO DAILY [facility] Stop: 01/22/19 11:31 Last Admin: 12/23/18 11:58 Dose: 500 mg Documented by: Calcium/Vitamin D (Calcarb 600 With Vitamin D) 1 tab PO BID [facility] Stop: 01/21/19 21:01 Last Admin: 12/23/18 08:35 Dose: 1 tab Documented by: Cholecalciferol (Vitamin D) 2,000 unit PO DAILY [facility] Stop: 01/22/19 09:01 Last Admin: 12/23/18 08:34 Dose: 2,000 unit Documented by: Donepezil HCl (Aricept) 10 mg PO DAILY [facility] Stop: 01/22/19 09:01 Last Admin: 12/23/18 08:35 Dose: 10 mg Documented by: Sodium Chloride (Sodium Chloride 0.45%) 1,000 mls @ 125 mls/hr IV .Q8H PRN PRN Reason: HYDRATION Stop: 01/21/19 21:51 Last Admin: 12/23/18 18:12 Dose: 125 mls/hr Documented by: Memantine (Namenda) 10 mg PO BID [facility] Stop: 01/22/19 09:01 Last Admin: 12/23/18 08:34 Dose: 10 mg Documented by: Methylprednisolone Sodium Succinate (Solu-Medrol (Pf)) 62.5 mg IV Q8H [facility] Stop: 01/22/19 11:31 Last Admin: 12/23/18 19:00 Dose: 62.5 mg Documented by: Pantoprazole Sodium (Protonix) 40 mg PO DAILY@0700 [facility] Stop: 01/22/19 07:01 Last Admin: 12/23/18 07:03 Dose: 40 mg Documented by: Potassium Chloride (K-Dur) 40 meq PO DAILY [facility] Stop: 01/22/19 09:01 Last Admin: 12/23/18 08:35 Dose: 40 meq Documented by: Spironolactone (Aldactone) 12.5 mg PO DAILY [facility] Stop: 01/22/19 09:01 Last Admin: 12/23/18 08:34 Dose: 12.5 mg Documented by: Tamsulosin HCl (Flomax) 0.8 mg PO DAILY@1800 [facility] Stop: 01/21/19 18:01 Last Admin: 12/23/18 17:07 Dose: 0.8 mg Documented by: Review of Systems - Review of Systems Narrative: He cannot supply useful system review. Denies severe pain. Hungry Respiratory: Absent: Shortness of Breath Cardiac: Absent: Chest Pain Abdominal: Absent: Nausea, Vomiting Physical Examination - Exam Vital Signs: Vital Signs - Last Taken Temp 36.7 C 12/23/18 19:52 Pulse 88 12/23/18 19:52 Resp 18 12/23/18 19:52 BP 124/69 12/23/18 19:52 Pulse Ox 97 12/23/18 19:52 O2 Oxygen Delivery Method Room Air Constitutional: Present: Alert, No distress, Other - oriented to self only, not place ENT Exam: Present: normal ENT inspection Eye Exam: bilateral eye: normal inspection Neck: Present: normal inspection Respiratory: Present: no respiratory distress Cardiovascular/Chest: Present: regular rate, rhythm Abdomen: Present: soft, nontender. Absent: guarding, rebound tenderness /Rectal: Present: Exam deferred Extremity: Present: no calf tenderness Skin Exam: Present: warm/dry Appearance: Present: impaired insight, impaired recent memory, impaired remote memory Eye contact: Present: cooperative, good eye contact Thoughts: Present: other - dementia - Results and Findings: Lab/Microbiology results last 24 hrs: Abnormal/Pending Laboratory Last 24 HRS 12/23/18 12/23/18 12/23/18 13:30 05:30 05:30 RBC Hgb Hct MCV MCH MCHC Plt Count Immature Gran % (Auto) Immature Gran # (Auto) Monocytes % Eosinophils % Monocytes # Sodium 147 H 152 H Plasma Sodium 147 H 152 H Potassium 2.6 L 2.6 L Chloride 111 H 111 H Anion Gap 15.7 H Creatinine 1.44 H Est GFR (Non-Af Amer) BUN/Creatinine Ratio Random Glucose 127 H 114 H Calcium 7.7 L 7.5 L ALT 8 L Alkaline Phosphatase 38 L Total Protein 6.0 L Albumin 1.7 L Vitamin B12 1886 H Folate 6.9 L Stool Occult Blood 12/23/18 12/22/18 12/22/18 05:30 21:43 21:10 RBC 3.08 L Hgb 9.6 L Hct 30.9 L MCV 100.3 H MCH 31.2 H MCHC 31.1 L Plt Count 508 H Immature Gran % (Auto) 0.80 H Immature Gran # (Auto) 0.08 H Monocytes % 10.1 H Eosinophils % 3.2 H Monocytes # 1.1 H Sodium 153 H Plasma Sodium 153 H Potassium 2.2 L* Chloride 114 H Anion Gap Creatinine 1.60 H Est GFR (Non-Af Amer) 55 L BUN/Creatinine Ratio 8.8 L Random Glucose 111 H Calcium 7.4 L ALT Alkaline Phosphatase Total Protein Albumin Vitamin B12 Folate Stool Occult Blood Positive H Culture 12/22/18 19:50 Stool Culture - Preliminary Stool No Pathogens Isolated - Assessments/Findings (1) Colitis Diagnosis(s): Pathology reviewed with Dr Conrad. He does not have a fever and WBC is normal---plts are elevated. No peritoneal signs. Treatment would be supportive with IVF's, K+ replacement. Unsure of etiology of colitis---the OP note does not mention rectal involvement and only transverse colon biopsied. Spoke with Dr Landrum and labs and stool studies pending. Problem: Acute
[2018-12-23] MEDS: LACTOBACILLUS ACIDOPHILUS 1 EACH CAPSULE PO SCH (20:59)
[2018-12-24] MEDS: POTASSIUM CHLORIDE IN WATER 100 ML IV SCH ×6 (00:06→14:05)
[2018-12-24] MEDS: 0.5 NORMAL SALINE 1,000 ML IV PRN ×3 (02:13→20:53)
[2018-12-24] MEDS: METHYLPREDNISOLONE SOD SUCC/PF 125 MG/2 ML VIAL IV SCH ×3 (03:14→19:39)
[2018-12-24 06:20] LABS: Albumin * 1.5 gm/dl (3.4-5.0); BUN/Creatinine Ratio 8.6 (9.0-21.6); Bilirubin, Total 0.7 mg/dL (0.0-1.1); CRP 7.6 mg/dL (0.0-0.9); Ca. Corrected For Albumin 9.2 mg/dL (8.4-10.2); Calcium * 7.5 mg/dL (7.9-10.9); Potassium 2.8 mmol/L (3.4-4.6); Total Protein 5.3 gm/dL (6.2-8.2)
[2018-12-24 06:27] LABS: Carbon Dioxide 24.8 mmol/L (24-32.6)
[2018-12-24] MEDS: LACTOBACILLUS ACIDOPHILUS 1 EACH CAPSULE PO SCH ×2 (08:37→20:52)
[2018-12-24] MEDS: FOLIC ACID 0.4 MG TABLET PO SCH (08:37)
[2018-12-24] MEDS: POTASSIUM CHLORIDE 20 MEQ TABLET.SA PO SCH ×3 (08:37→17:11)
[2018-12-24] MEDS: PANTOPRAZOLE SODIUM 40 MG TABLET.EC PO SCH (08:38)
[2018-12-24] MEDS: DONEPEZIL HCL 10 MG TABLET PO SCH (08:38)
[2018-12-24] MEDS: MEMANTINE HCL 10 MG TABLET PO SCH ×2 (08:38→20:52)
[2018-12-24] MEDS: amLODIPine BESYLATE 5 MG TABLET PO SCH (08:38)
[2018-12-24] MEDS: CALCIUM CARBONATE 500 MG TAB.CHEW PO SCH (08:38)
[2018-12-24] MEDS: SPIRONOLACTONE 25 MG TABLET PO SCH (08:38)
[2018-12-24] MEDS: CALCIUM CARBONATE/VITAMIN D3 1 TAB TABLET PO SCH ×2 (08:38→20:52)
[2018-12-24] MEDS: CHOLECALCIFEROL 1,000 UNIT CAPSULE PO SCH (08:38)
[2018-12-24] MEDS ORDERED: 0.5 NORMAL SALINE 1,000 ML IV PRN (08:45)
--- NOTE | 2018-12-24 08:56 | PN ---
Subjective - Date and Time Seen Date: 12/24/18 Time: 08:47 Subjective Narrative: I feel better, no abdominal pain Objective Objective Narrative: 73-year-old -[place] male admitted for lower GI bleeding, severe dehydration, severe hypernatremia, was evaluated at bedside and was found to be afebrile and in no acute distress. Patient's vitals remained stable labs this morning demonstrates an improvement in his hypokalemia as well his hypernatremia. Inflammatory markers hav decreased as welle after patient was started on IV steroids. He was evaluated by the general surgeon who recommends staying on the course or the treatment plan that we have him on which includes IV fluids as well as potassium replacement. Nursing staff this morning report blood in the patient's stool this morning of an orange color, whether or not this is active bleeding or residual bleeding cannot be determined at this time. Therefore I will order a CBC to be done in the next few minutes to evaluate hemoglobin levels. Currently pillowcase turner or arranging longterm placement, authorization by his insurance and acceptance at 1 of the care centers is pending for today. We will follow-up with with the longterm placement and continue to monitor the patient closely. - Review of Systems Generalized/Overall Review: Reports: No Symptoms Reported EENTM: Reports: No Symptoms Reported Respiratory: Reports: No Symptoms Reported Cardiac: Reports: No Symptoms Reported Abdominal: Reports: Melena Genitourinary Symptoms: Reports: No Symptoms Reported Musculoskeletal Complaints: Reports: No Symptoms Reported Neurological: Reports: No Symptoms Reported Skin: Reports: No Symptoms Reported Endocrine: Reports: No Symptoms Reported - Vitals Vitals: Last Vital Signs Temp 36.2 C 12/24/18 06:49 Pulse 73 12/24/18 08:38 Resp 18 12/24/18 06:49 BP 110/71 12/24/18 08:38 Pulse Ox 97 12/24/18 06:49 - Abnormal Lab Findings Abnormal Lab Findings: Abnormal Lab Results 12/23/18 12/23/18 12/24/18 Range/Units 05:30 13:30 05:48 ESR 73 H (0-10) mm/hr Sodium 147 H (132-142) mmol/L Plasma Sodium 147 H (130-142) mmol/L Potassium 2.6 L (3.4-4.6) mmol/L Chloride 111 H (97-106) mmol/L Anion Gap (6.8-13.8) mmol/L BUN/Creatinine Ratio (9.0-21.6) Random Glucose 127 H (70-110) mg/dL Calcium 7.7 L (7.9-10.9) mg/dL ALT (19-67) U/L Alkaline Phosphatase (50-170) U/L C-Reactive Prot, Quant (0.0-0.9) mg/dL Total Protein (6.2-8.2) gm/dL Albumin (3.4-5.0) gm/dl Vitamin B12 1886 H (193-986) pg/mL Folate 6.9 L (8.6-58.9) ng/mL 12/24/18 Range/Units 05:48 ESR (0-10) mm/hr Sodium 146 H (132-142) mmol/L Plasma Sodium 147 H (130-142) mmol/L Potassium 2.8 L (3.4-4.6) mmol/L Chloride 109 H (97-106) mmol/L Anion Gap 15.0 H (6.8-13.8) mmol/L BUN/Creatinine Ratio 8.6 L (9.0-21.6) Random Glucose 162 H (70-110) mg/dL Calcium 7.5 L (7.9-10.9) mg/dL ALT 7 L (19-67) U/L Alkaline Phosphatase 33 L (50-170) U/L C-Reactive Prot, Quant 7.6 H (0.0-0.9) mg/dL Total Protein 5.3 L (6.2-8.2) gm/dL Albumin 1.5 L (3.4-5.0) gm/dl Vitamin B12 (193-986) pg/mL Folate (8.6-58.9) ng/mL - Exam Constitutional: Present: Alert, Cooperative, Well developed, Well nourished, No distress ENT Exam: Present: normal ENT inspection, hearing grossly normal, pharynx normal Neck: Present: non-tender, full range of motion, supple, normal inspection, trachea midline Breasts: Present: Exam deferred Respiratory: Present: chest non-tender, lungs clear, normal breath sounds, no respiratory distress, no accessory muscle use Cardiovascular/Chest: Present: normal peripheral pulses, regular rate, rhythm, no chest tenderness, no edema, no gallop, no JVD, no murmur, no rub Abdomen: Present: Normal bowel sounds, soft, nontender, nondistended, no rebound tenderness, no hepatospenomegaly, no masses, obese /Rectal: Present: Exam deferred Extremity: Present: normal range of motion, non-tender, normal inspection, no pedal edema, no calf tenderness, normal capillary refill Skin Exam: Present: normal color, warm/dry, no cyanosis Lymphatic: Present: no adenopathy Neurologic: Present: 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 Patient's hypokalemia is improving but still not at goal therefore additional potassium chloride riders were added to his treatment as well as another bag of half-normal saline. 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
[2018-12-24] MEDS ORDERED: metroNIDAZOLE/SODIUM CHLORIDE 500 MG/100 ML BAG IV SCH (09:15)
[2018-12-24 09:30] LABS: Hematocrit 26.8 % (42.0-52.0); Hemoglobin 8.4 gm/dL (13.5-18.0); Mean Cell Volume 99.3 fl (78-100); Mean Corpuscular Hemoglobin 31.1 pg (27-31); Mean Corpuscular Hgb Conc 31.3 g/dl (32-36); Mean Platelet Volume 10.2 fl (8-11.3); Platelet Count 418 K/mm3 (150-450); Red Cell Distribution Width 13.5 % (11.5-14.0); White Blood Count 6.8 K/mm3 (4.0-10.5)
[2018-12-24 09:31] LABS: Total Cells Counted 100
[2018-12-24 09:46] LABS: Atypical (Reactive) Lymph 2 % (0-2); Band 20 % (0-2.0); Lymphocyte 13 % (20-51); Monocyte 3 % (0-9); Neutrophil 62 % (42-75); Neutrophil # 4.2 K/mm3 (1.3-6.0)
[2018-12-24 09:47] LABS: Platelet Estimate Normal (NORMAL)
[2018-12-24 09:49] LABS: Basophilic Stippling Trace; Hypochromia Trace; Polychromasia 1+
[2018-12-24] MEDS: CIPROFLOXACIN IN 5 % DEXTROSE 400 MG/200 ML BAG IV SCH ×2 (11:11→21:58)
--- NOTE | 2018-12-24 17:03 | PN ---
Subjective - Date and Time Seen Date: 12/24/18 Time: 16:55 Subjective Narrative: He was admitted with colitis. His vital signs have remained normal. His white blood cell count is still normal however the platelets are elevated. His hemoglobin has decreased and he has had more bloody stools. Objective Objective Narrative: He cannot give a useful system review due to dementia. He is afraid to eat because he will get diarrhea. He has complained to the family that his abdomen hurts sometimes. - Vitals Vitals: Last Vital Signs Temp 36.4 C 12/24/18 15:13 Pulse 98 12/24/18 15:13 Resp 20 12/24/18 15:13 BP 101/54 12/24/18 15:13 Pulse Ox 98 12/24/18 15:13 - Abnormal Lab Findings Abnormal Lab Findings: Abnormal Lab Results 12/24/18 12/24/18 12/24/18 Range/Units 05:48 05:48 05:48 RBC 2.70 L (4.7-6.0) M/mm3 Hgb 8.4 L (13.5-18.0) gm/dL Hct 26.8 L (42.0-52.0) % MCH 31.1 H (27-31) pg MCHC 31.3 L (32-36) g/dl Band Neuts % (Manual) 20 H (0-2.0) % Lymphocytes % (Manual) 13 L (20-51) % Lymphocytes # (Manual) 0.9 L (1.5-3.5) k/mm3 ESR 73 H (0-10) mm/hr Sodium 146 H (132-142) mmol/L Plasma Sodium 147 H (130-142) mmol/L Potassium 2.8 L (3.4-4.6) mmol/L Chloride 109 H (97-106) mmol/L Anion Gap 15.0 H (6.8-13.8) mmol/L BUN/Creatinine Ratio 8.6 L (9.0-21.6) Random Glucose 162 H (70-110) mg/dL Calcium 7.5 L (7.9-10.9) mg/dL ALT 7 L (19-67) U/L Alkaline Phosphatase 33 L (50-170) U/L C-Reactive Prot, Quant 7.6 H (0.0-0.9) mg/dL Total Protein 5.3 L (6.2-8.2) gm/dL Albumin 1.5 L (3.4-5.0) gm/dl - Exam Constitutional: Present: Alert, No distress, Other - Only oriented to self ENT Exam: Present: normal ENT inspection Respiratory: Present: no respiratory distress Cardiovascular/Chest: Present: regular rate, rhythm Abdomen: Present: soft, nontender - No percussion tenderness or rebound. 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 A pamphlet on colonoscopy was used to review the situation and explained colonoscopy with biopsies. Explained colitis and the differential diagnosis of inflammatory bowel disease, ischemia, or infection.Also discussed that he is not wanting to eat because of diarrhea may improve if his underlying disease is treated. Colonoscopy will allow us to obtain enough biopsies to hopefully give us a definitive diagnosis. Hopefully definitive treatment will help his appetite as well. It turns out the daughter does have ulcerative colitis and one other family member has ulcerative colitis. They also expressed concerns about his resuscitation status. When they came to the hospital they were thinking full code, however they have rethought this and would like to have him be DNR, and I encouraged them to speak to staff to make that happen. They have arranged for him to go to the [facility] memory care unit after he leaves here. I also discussed briefly that dementia will raise other questions in the future, so I suggested they review the [facility] literature so they can begin to make some decisions now rather than wait until things happen. After interactive discussion their questions were answered to their apparent satisfaction and they have given informed consent for colonoscopy. This will be performed tomorrow. Prep orders have been entered. - Problems/Diagnosis (1) Colitis Problem: Acute
[2018-12-24] MEDS: SODIUM, POTASSIUM,MAG SULFATES 1 KIT KIT PO SCH (17:08)
[2018-12-24] MEDS: TAMSULOSIN HCL 0.4 MG CAP.SR.24H PO SCH (19:37)
[2018-12-24] MEDS: metroNIDAZOLE/SODIUM CHLORIDE 500 MG/100 ML BAG IV SCH (20:52)
[2018-12-25] MEDS: METHYLPREDNISOLONE SOD SUCC/PF 125 MG/2 ML VIAL IV SCH ×3 (03:56→19:53)
[2018-12-25] MEDS: SODIUM, POTASSIUM,MAG SULFATES 1 KIT KIT PO SCH (05:23)
[2018-12-25] MEDS: metroNIDAZOLE/SODIUM CHLORIDE 500 MG/100 ML BAG IV SCH ×3 (05:23→21:09)
[2018-12-25 05:39] LABS: Hematocrit 24.9 % (42.0-52.0); Mean Cell Volume 96.5 fl (78-100); Mean Corpuscular Hgb Conc 32.1 g/dl (32-36); Mean Platelet Volume 9.3 fl (8-11.3); Platelet Count 412 K/mm3 (150-450); Red Blood Count 2.58 M/mm3 (4.7-6.0); Red Cell Distribution Width 13.2 % (11.5-14.0); White Blood Count 4.8 K/mm3 (4.0-10.5)
[2018-12-25 05:58] LABS: Albumin * 1.5 gm/dl (3.4-5.0); Anion Gap 10.8 mmol/L (6.8-13.8); BUN/Creatinine Ratio 9.5 (9.0-21.6); Bilirubin, Total 0.5 mg/dL (0.0-1.1); Ca. Corrected For Albumin 9.4 mg/dL (8.4-10.2); Calcium * 7.7 mg/dL (7.9-10.9); Carbon Dioxide 27.3 mmol/L (24-32.6); Potassium 3.1 mmol/L (3.4-4.6); Total Cells Counted 100
[2018-12-25 06:49] LABS: Band 12 % (0-2.0); Immature Granulocyte 1 (0-1); Lymphocyte 15 % (20-51); Monocyte 4 % (0-9); Neutrophil 68 % (42-75); Neutrophil # 3.3 K/mm3 (1.3-6.0)
[2018-12-25 06:50] LABS: Platelet Estimate Normal (NORMAL)
[2018-12-25 06:51] LABS: Hypochromia Trace; Polychromasia 1+
[2018-12-25 06:52] LABS: Basophilic Stippling Trace
[2018-12-25] MEDS: 0.5 NORMAL SALINE 1,000 ML IV PRN ×2 (07:49→15:46)
[2018-12-25] MEDS: CIPROFLOXACIN IN 5 % DEXTROSE 400 MG/200 ML BAG IV SCH ×2 (08:59→22:24)
[2018-12-25] MEDS: POTASSIUM CHLORIDE IN WATER 100 ML IV SCH ×4 (10:22→13:37)
[2018-12-25] MEDS: CALCIUM CARBONATE/VITAMIN D3 1 TAB TABLET PO SCH ×2 (10:28→21:12)
[2018-12-25] MEDS: PANTOPRAZOLE SODIUM 40 MG TABLET.EC PO SCH (10:28)
[2018-12-25] MEDS: SPIRONOLACTONE 25 MG TABLET PO SCH (10:28)
[2018-12-25] MEDS: LACTOBACILLUS ACIDOPHILUS 1 EACH CAPSULE PO SCH ×2 (10:28→21:11)
[2018-12-25] MEDS: FOLIC ACID 0.4 MG TABLET PO SCH (10:28)
[2018-12-25] MEDS: MEMANTINE HCL 10 MG TABLET PO SCH ×2 (10:28→21:12)
[2018-12-25] MEDS: DONEPEZIL HCL 10 MG TABLET PO SCH (10:28)
[2018-12-25] MEDS: POTASSIUM CHLORIDE 20 MEQ TABLET.SA PO SCH ×2 (10:28→16:44)
[2018-12-25] MEDS: amLODIPine BESYLATE 5 MG TABLET PO SCH (10:29)
[2018-12-25] MEDS: CHOLECALCIFEROL 1,000 UNIT CAPSULE PO SCH (10:29)
[2018-12-25] MEDS: CALCIUM CARBONATE 500 MG TAB.CHEW PO SCH (10:29)
--- NOTE | 2018-12-25 11:18 | PN ---
Subjective - Date and Time Seen Date: 12/25/18 Time: 11:09 Subjective Narrative: Patient appears comfortable and denies any abdominal pain. Objective Objective Narrative: 73-year-old -[place] male admitted for lower GI bleeding, severe dehydration, severe hypernatremia, was evaluated at bedside and was found to be afebrile and in no acute distress. Patient continues to have lower GI bleed which is also apparent on this morning's follow-up labs. Hemoglobin continues to decline and is now at 8.0. However his hypernatremia is resolving as well as his hypokalemia. Patient has received more than 12 potassium chloride riders in order to treat his hypokalemia, this has been very slow to resolve very much like his last hospitalization. He was evaluated by Dr. Lara who is the surgeon on the case who plans on performing a colonoscopy with extensive biopsy to find the etiology of the lower GI bleed. During discussion between the patient's family members and Dr. Lara, it was discovered that several family members have been diagnosed with ulcerative colitis confirming a strong family history for the disease. Hematologic markers for ulcerative colitis as well as Crohn's disease were ordered during admission and results are pending. In the meantime patient maintains stable vitals and denies any new symptoms. We will follow-up with him after the colonoscopy. - Review of Systems Generalized/Overall Review: Reports: No Symptoms Reported EENTM: Reports: No Symptoms Reported Cardiac: Reports: No Symptoms Reported Abdominal: Reports: Melena, Bright blood from rectum Genitourinary Symptoms: Reports: No Symptoms Reported Musculoskeletal Complaints: Reports: No Symptoms Reported Neurological: Reports: Pre-existing Deficit Skin: Reports: No Symptoms Reported Endocrine: Reports: No Symptoms Reported - Vitals Vitals: Last Vital Signs Temp 36.8 C 12/25/18 10:15 Pulse 96 12/25/18 10:15 Resp 16 12/25/18 10:15 BP 118/52 12/25/18 10:15 Pulse Ox 99 12/25/18 10:15 - Abnormal Lab Findings Abnormal Lab Findings: Abnormal Lab Results 12/25/18 12/25/18 Range/Units 05:37 05:37 RBC 2.58 L (4.7-6.0) M/mm3 Hgb 8.0 L (13.5-18.0) gm/dL Hct 24.9 L (42.0-52.0) % Band Neuts % (Manual) 12 H (0-2.0) % Lymphocytes % (Manual) 15 L (20-51) % Lymphocytes # (Manual) 0.7 L (1.5-3.5) k/mm3 Sodium 144 H (132-142) mmol/L Plasma Sodium 145 H (130-142) mmol/L Potassium 3.1 L (3.4-4.6) mmol/L Chloride 109 H (97-106) mmol/L Random Glucose 169 H (70-110) mg/dL Calcium 7.7 L (7.9-10.9) mg/dL ALT 9 L (19-67) U/L Alkaline Phosphatase 31 L (50-170) U/L Total Protein 5.0 L (6.2-8.2) gm/dL Albumin 1.5 L (3.4-5.0) gm/dl - Exam Constitutional: Present: Alert, Oriented x3, Cooperative, Well developed, Well nourished, No distress, Elderly ENT Exam: Present: normal ENT inspection, hearing grossly normal, pharynx normal, TMs normal Neck: Present: non-tender, full range of motion, supple, normal inspection, trachea midline Respiratory: Present: chest non-tender, lungs clear, normal breath sounds, no respiratory distress, no accessory muscle use Cardiovascular/Chest: Present: normal peripheral pulses, regular rate, rhythm, no chest tenderness, no edema, no gallop, no JVD, no murmur, no rub Abdomen: Present: Normal bowel sounds, soft, nontender, nondistended, no rebound tenderness, no hepatospenomegaly, no masses /Rectal: Present: Exam deferred Extremity: Present: normal range of motion, non-tender, normal inspection, no pedal edema, no calf tenderness, normal capillary refill Skin Exam: Present: normal color, warm/dry, no cyanosis Lymphatic: Present: no adenopathy Neurologic: Present: 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 Additional potassium K riders have been ordered to continue treating hypokalemia. We will follow-up with colonoscopy results as well as biopsy results to find the etiology of his lower GI bleed. Follow-up labs have been ordered for tomorrow morning to evaluate electrolyte levels, hemoglobin levels, and inflammatory markers. In the meantime we will continue to administer Protonix for his GI bleeding. 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
--- NOTE | 2018-12-25 11:23 | ANES ---
Anesthesia Pre Procedure Eval Vitals/Labs: Last Vital Signs Temp 36.8 C 12/25/18 10:15 Pulse 96 12/25/18 10:15 Resp 16 12/25/18 10:15 BP 118/52 12/25/18 10:15 Pulse Ox 99 12/25/18 10:15 HOME MEDICATIONS acetaminophen 325 mg capsule 650 mg PO HS PRN cap 11/05/17 [Last Taken Unknown] memantine ER 28 mg-donepezil 10 mg capsule sprinkle,ext.release 24 hr 1 cap PO DAILY 11/13/17 [Last Taken 12/12/18] spironolactone 25 mg tablet 12.5 mg PO DAILY #90 tab 08/05/18 [Last Taken 12/12/18] cholecalciferol (vitamin D3) 2,000 unit tablet 2,000 unit PO DAILY #30 tab 12/02/18 [Last Taken 12/12/18] Amlodipine Besylate 5 mg PO DAILY 12/12/18 [Last Taken 12/12/18] Tamsulosin HCl [Flomax] 0.8 mg PO BID 12/12/18 [Last Taken 12/12/18] Calcium Carbonate/Vitamin D3 [Calcium 500 mg-Vit D3 600 Unit] 1 ea PO BID #60 tab 12/15/18 [Last Taken Unknown] Pantoprazole Sodium [Protonix] 40 mg PO DAILY #30 mg 12/15/18 [Last Taken Unknown] Allergies/Adverse Reactions: Allergies Allergy/AdvReac Type Severity Reaction Status Date / Time No Known Allergies Allergy Verified 12/22/18 17:27 - Planned Procedure Planned Procedure: Hypokalemia and Severe Dehydration Medication List Reviewed:: Yes Allergies Verified: Yes Medical History (Last Reviewed 12/25/18 @ 11:22 by Lester Salazar CRNA) Vascular dementia of acute onset without behavioral disturbance (Chronic) DJD (degenerative joint disease) of knee Onset Date: ~11/2013 GERD (gastroesophageal reflux disease) HTN (hypertension) Onset Date: ~2012 anteroseptal, atypical and inferior wall fixed detect with EF low at 50% on nuclear study, however ECHO on 11/13 did not show and WMA only delayed relaxation an normal LVEF History of BPH Hyperlipidemia Memory loss Onset Date: ~04/02/14 due to vascular dementia Surgical History (Last Reviewed 12/25/18 @ 11:22 by Lester Salazar CRNA) H/O colonoscopy Onset Date: 08/16/11 08/16/11 David-combined adenomatous and hyperplastic polyp. Repeat 5 yrs. 12/14/18 Eleuterio-moderate to severe chronic active colitis. H/O inguinal hernia repair Onset Date: ~04/16/13 Dr. Hernandez-left w/mesh H/O transurethral resection of prostate Onset Date: ~02/25/13 History of excision of lesion Onset Date: ~04/16/13 david- left hip mass-ancrochordon(skin tag). History of stress test Onset Date: ~05/30/16 treadmill-normal Hx laparoscopic cholecystectomy Onset Date: ~02/19/13 Dr. Hernandez-w/cholangiogram Internal hemorrhoid Onset Date: ~11/05/17 treated with infrared in 1994 [facility] Family History (Last Reviewed 12/25/18 @ 11:22 by Lester Salazar CRNA) Sister Diabetes Heart disease Father Gunshot wound Mother Myocardial infarction CVA (cerebral vascular accident) Brother Myocardial infarction Sister No problems noted. - Family Anesthesia History Family History:: no untoward family reactions to anesthesia - Airway/Neck/Teeth Within Normal Limits:: Yes Teeth Condition: intact Neck Exam: full range of motion Mallampatti Score: 2 Thyromental (T-M) distance: > 6 cm Mandibulo Hyoid distance: > 3 cm - Respiratory Respiratory Physical: lungs clear Smoking Status: Former smoker Sleep Apnea currently treated: No Sleep Apnea by current assessment: No - Cardiovascular Cardiac History: arrhythmia, hypertension Tolerate Activity: Fair Heart Sounds: Irregular - Anesthesia Assessment and Plan ASA Class: PS, III Anesthesia Type Plan: MAC Planned difficult intubation/equipment available: No
[2018-12-25] MEDS ORDERED: PROPOFOL VIAL IV ONE (14:22)
--- NOTE | 2018-12-25 15:27 | ANES ---
Post Anesthesia Discharge - Transfer of Care Transfer of Care handoff given to nurse: Yes - Anesthesia Post Op Note Anesthesia Post Op Note: care transferred to manager medical
--- NOTE | 2018-12-25 15:27 | ANES ---
Post Anesthesia Assessment - Vital Signs Vitals: Last Vital Signs Temp 36.8 C 12/25/18 10:15 Pulse 60 12/25/18 14:10 Resp 16 12/25/18 10:15 BP 118/52 12/25/18 10:15 Pulse Ox 99 12/25/18 10:15 Airway Patency: Normal - Mental Status Level Of Consciousness: Awake - Pain Level Pain Score: 0 - N/V Assessment Nausea/Vomiting Presence: None Dehydration:: No
--- NOTE | 2018-12-25 15:43 | OR ---
Operative Report - Dictated Report Narrative: OPERATIVE REPORT DATE OF OPERATION: 12/25/2018 PREOPERATIVE DIAGNOSIS: Colitis POSTOPERATIVE DIAGNOSIS: Colitis (pathology pending) OPERATION: Colonoscopy to 60 cm with multiple biopsies of the colon and rectum SURGEON: Tarsha Lara MD ANESTHESIA: RAMESH Salazar CRNA INDICATIONS FOR PROCEDURE: The patient is a 73-year-old male who was found to have colitis on recent colonoscopy. He has had recurrence of diarrhea and rectal bleeding. The pathology on the first endoscopy was indeterminant. Stool culture for pathogens and C. difficile was negative. He is brought for repeat biopsies in order to help establish a diagnosis. FINDINGS: Cobblestoning and abnormal mucosa in the rectum. More severe colitis starting in approximately 25 to 30 cm and extending the entire length of the exam (60 cm). Exam not pursued proximally due to severity of inflammation NARRATIVE OF PROCEDURE: The patient was identified preoperatively, and prior to the administration of anesthetic, a multidisciplinary timeout was observed. With the patient in the left lateral position and after the administration of intravenous sedation, the perineum was inspected. There was no evidence of pilonidal disease or skin breakdown. The external appearance of the anus was n ormal. Sphincter tone was good. The flexible fiberoptic colonoscope was inserted into the rectum which was insufflated with air. There was cobblestoning of the mucosa but no darryl ulcerations. The scope was advanced into the sigmoid colon and at approximately 20-30 cm more severe inflammatory changes with focal ulcers with exudate were encountered. The scope was advanced proximally to approximately 60 cm. At this level there was even more severe inflammation and it was felt not safe to proceed proximally. Accordingly the scope was slowly withdrawn and multiple biopsies of the descending and sigmoid colon were obtained. The scope was withdrawn to the rectum and multiple rectal biopsies were obtained and submitted in a separate container. The proximal insufflated air was removed the scope was withdrawn from the patient and the procedure terminated. The patient tolerated the anesthetic and procedure well without complication and was transferred back to his room awake and in stable condition.
[2018-12-25] MEDS: TAMSULOSIN HCL 0.4 MG CAP.SR.24H PO SCH (17:48)
[2018-12-26] MEDS: 0.5 NORMAL SALINE 1,000 ML IV PRN (03:40)
[2018-12-26] MEDS: METHYLPREDNISOLONE SOD SUCC/PF 125 MG/2 ML VIAL IV SCH ×3 (03:41→18:57)
[2018-12-26] MEDS: metroNIDAZOLE/SODIUM CHLORIDE 500 MG/100 ML BAG IV SCH ×3 (05:18→20:30)
[2018-12-26 05:22] LABS: Hematocrit 26.5 % (42.0-52.0); Hemoglobin 8.3 gm/dL (13.5-18.0); Mean Cell Volume 97.8 fl (78-100); Mean Corpuscular Hemoglobin 30.6 pg (27-31); Mean Corpuscular Hgb Conc 31.3 g/dl (32-36); Mean Platelet Volume 9.6 fl (8-11.3); Neutrophil # 3.7 K/mm3 (1.3-6.0); Neutrophil % 70.9 % (42-75.0); Platelet Count 416 K/mm3 (150-450); Red Blood Count 2.71 M/mm3 (4.7-6.0); Red Cell Distribution Width 13.6 % (11.5-14.0); White Blood Count 5.2 K/mm3 (4.0-10.5)
[2018-12-26 05:34] LABS: Albumin * 1.5 gm/dl (3.4-5.0); Anion Gap 9.3 mmol/L (6.8-13.8); Bilirubin, Total 0.4 mg/dL (0.0-1.1); CRP 2.1 mg/dL (0.0-0.9); Ca. Corrected For Albumin 9.1 mg/dL (8.4-10.2); Calcium * 7.4 mg/dL (7.9-10.9); Carbon Dioxide 25.1 mmol/L (24-32.6); Potassium 3.4 mmol/L (3.4-4.6); Total Protein 5.1 gm/dL (6.2-8.2)
[2018-12-26] MEDS: PANTOPRAZOLE SODIUM 40 MG TABLET.EC PO SCH (06:20)
[2018-12-26] MEDS: CALCIUM CARBONATE/VITAMIN D3 1 TAB TABLET PO SCH ×2 (08:02→20:34)
[2018-12-26] MEDS: FOLIC ACID 0.4 MG TABLET PO SCH (08:02)
[2018-12-26] MEDS: SPIRONOLACTONE 25 MG TABLET PO SCH (08:02)
[2018-12-26] MEDS: LACTOBACILLUS ACIDOPHILUS 1 EACH CAPSULE PO SCH ×2 (08:02→20:34)
[2018-12-26] MEDS: DONEPEZIL HCL 10 MG TABLET PO SCH (08:02)
[2018-12-26] MEDS: POTASSIUM CHLORIDE 20 MEQ TABLET.SA PO SCH ×2 (08:02→17:20)
[2018-12-26] MEDS: MEMANTINE HCL 10 MG TABLET PO SCH ×2 (08:02→20:34)
[2018-12-26] MEDS: CHOLECALCIFEROL 1,000 UNIT CAPSULE PO SCH (08:03)
[2018-12-26] MEDS: amLODIPine BESYLATE 5 MG TABLET PO SCH (08:03)
[2018-12-26] MEDS: CALCIUM CARBONATE 500 MG TAB.CHEW PO SCH (08:03)
[2018-12-26] MEDS: CIPROFLOXACIN IN 5 % DEXTROSE 400 MG/200 ML BAG IV SCH ×2 (08:16→21:34)
--- NOTE | 2018-12-26 12:22 | PN ---
Subjective - Date and Time Seen Date: 12/26/18 Time: 09:00 Subjective Narrative: Patient appears comfortable, no adverse events overnight. Vital signs stable Objective Objective Narrative: 73-year-old with advanced dementia here for lower GI bleed, electrolyte imbalance, and colitis of unknown etiology. Patient is mostly nonverbal Review of systems unable to be obtained other than patient denying pain or discomfort. - Vitals Vitals: Last Vital Signs Temp 36.9 C 12/26/18 06:45 Pulse 68 12/26/18 08:03 Resp 18 12/26/18 06:45 BP 116/67 12/26/18 08:03 Pulse Ox 98 12/26/18 06:45 - Abnormal Lab Findings Abnormal Lab Findings: Abnormal Lab Results 12/26/18 12/26/18 12/26/18 Range/Units 05:10 05:10 05:10 RBC 2.71 L (4.7-6.0) M/mm3 Hgb 8.3 L (13.5-18.0) gm/dL Hct 26.5 L (42.0-52.0) % MCHC 31.3 L (32-36) g/dl Immature Gran % (Auto) 1.90 H (0.001-0.429) % Immature Gran # (Auto) 0.10 H (0.000-0.0310) K/mm3 Lymphocytes % 17.6 L (20-51) % Monocytes % 9.4 H (0.0-9) % Lymphocytes # 0.92 L (1.5-3.5) k/mm3 ESR 54 H (0-10) mm/hr Chloride 109 H (97-106) mmol/L Random Glucose 169 H (70-110) mg/dL Calcium 7.4 L (7.9-10.9) mg/dL ALT 8 L (19-67) U/L Alkaline Phosphatase 36 L (50-170) U/L C-Reactive Prot, Quant 2.1 H (0.0-0.9) mg/dL Total Protein 5.1 L (6.2-8.2) gm/dL Albumin 1.5 L (3.4-5.0) gm/dl - Exam Constitutional: Present: Alert, No distress. Absent: Oriented x3 - X1 Neck: Present: non-tender, supple Respiratory: Present: lungs clear, normal breath sounds Cardiovascular/Chest: Present: normal peripheral pulses, regular rate, rhythm, no murmur Abdomen: Present: Normal bowel sounds, soft, nontender, nondistended /Rectal: Present: Exam deferred Extremity: Absent: lower extremity edema, leg pain Skin Exam: Present: normal color, warm/dry Appearance: Present: impaired insight, impaired recent memory Eye contact: Present: good eye contact. Absent: normal speech Thoughts: Present: no apparent hallucination Assessment/Plan Plan Narrative: From a clinical standpoint patient continues to improve. Hemoglobin is stabilized, he has not had any bloody bowel movements last 24 hours. Abdominal pain also improving with antibiotics and steroid, which we will continue. Electrolytes have normalized, no longer hyponatremic or hypokalemic. His vital signs are stable he is been afebrile. Continue current treatment plan without any changes at this time, path results pending from biopsy during colonoscopy. Nurse will call with questions or concerns. - Problems/Diagnosis (1) GI bleeding Problem: Acute Qualifiers: (2) Colitis Problem: Acute (3) Severe dehydration Problem: Resolved (4) Hypernatremia Problem: Acute (5) Physical deconditioning Problem: Acute (6) Folic acid deficiency Problem: Acute (7) Hypokalemia Problem: Acute (8) Vascular dementia of acute onset without behavioral disturbance Problem: Chronic
[2018-12-26] MEDS: TAMSULOSIN HCL 0.4 MG CAP.SR.24H PO SCH (17:19)
[2018-12-27] MEDS: METHYLPREDNISOLONE SOD SUCC/PF 125 MG/2 ML VIAL IV SCH ×3 (03:38→18:33)
[2018-12-27] MEDS: metroNIDAZOLE/SODIUM CHLORIDE 500 MG/100 ML BAG IV SCH ×3 (04:45→20:38)
[2018-12-27] MEDS: PANTOPRAZOLE SODIUM 40 MG TABLET.EC PO SCH (07:03)
[2018-12-27] MEDS: DONEPEZIL HCL 10 MG TABLET PO SCH (08:18)
[2018-12-27] MEDS: CALCIUM CARBONATE/VITAMIN D3 1 TAB TABLET PO SCH ×2 (08:18→20:37)
[2018-12-27] MEDS: SPIRONOLACTONE 25 MG TABLET PO SCH (08:18)
[2018-12-27] MEDS: FOLIC ACID 0.4 MG TABLET PO SCH (08:18)
[2018-12-27] MEDS: LACTOBACILLUS ACIDOPHILUS 1 EACH CAPSULE PO SCH ×2 (08:18→20:37)
[2018-12-27] MEDS: MEMANTINE HCL 10 MG TABLET PO SCH ×2 (08:19→20:37)
[2018-12-27] MEDS: amLODIPine BESYLATE 5 MG TABLET PO SCH (08:19)
[2018-12-27] MEDS: POTASSIUM CHLORIDE 20 MEQ TABLET.SA PO SCH ×2 (08:19→17:10)
[2018-12-27] MEDS: CHOLECALCIFEROL 1,000 UNIT CAPSULE PO SCH (08:19)
[2018-12-27] MEDS: CALCIUM CARBONATE 500 MG TAB.CHEW PO SCH (08:19)
[2018-12-27] MEDS: CIPROFLOXACIN IN 5 % DEXTROSE 400 MG/200 ML BAG IV SCH ×2 (08:24→21:45)
--- NOTE | 2018-12-27 11:22 | PN ---
Subjective - Date and Time Seen Date: 12/27/18 Time: 10:00 Subjective Narrative: Patient reports feeling tired this morning. He also had a few loose stools overnight. No new concerns. Objective - Review of Systems Generalized/Overall Review: Denies: Fever Respiratory: Denies: Cough, Shortness of Breath Cardiac: Denies: Edema Abdominal: Reports: Diarrhea. Denies: Vomiting Genitourinary Symptoms: Reports: No Symptoms Reported Musculoskeletal Complaints: Reports: No Symptoms Reported Neurological: Reports: No Symptoms Reported - Vitals Vitals: Last Vital Signs Temp 36.6 C 12/27/18 10:50 Pulse 61 12/27/18 10:50 Resp 16 12/27/18 10:50 BP 130/65 12/27/18 10:50 Pulse Ox 99 12/27/18 10:50 - Exam Constitutional: Present: Alert, Cooperative, Elderly Respiratory: Present: normal breath sounds, no respiratory distress Cardiovascular/Chest: Present: regular rate, rhythm Abdomen: Present: soft, tender Extremity: Absent: lower extremity edema Neurologic: Present: alert - wakens easily for exam Assessment/Plan - Problems/Diagnosis (1) Colitis Problem: Acute Narrative: Today is day 5 of Cipro and Flagyl. He is having loose stools. Afebrile, WBC normal. Labs pending to evaluate for UC. Biopsies done during his colonoscopy. (2) Vascular dementia Problem: Acute (3) Hypoalbuminemia Problem: Acute Narrative: His albumin is 1.5, down from 2.1 on admission. We will add boost shakes with meals. (4) Hypernatremia Problem: Resolved Narrative: Sodium is normal today, at 140. (5) Hypokalemia Problem: Resolved Narrative: Potassium is normal today, at 3.4. Continue bid KCl. (6) GI bleeding Problem: Resolved Qualifiers: Narrative: He had a colonoscopy on Friday. No further blood in his stools. Hgb of 8.3, essentially no policy change clerk the last several days. (7) Physical deconditioning Problem: Chronic Narrative: Per the H&P, he may be going to a facility after DC. He has been accepted to the [place].
[2018-12-27] MEDS: TAMSULOSIN HCL 0.4 MG CAP.SR.24H PO SCH (17:10)
[2018-12-28] MEDS: METHYLPREDNISOLONE SOD SUCC/PF 125 MG/2 ML VIAL IV SCH ×2 (04:02→14:34)
[2018-12-28] MEDS: metroNIDAZOLE/SODIUM CHLORIDE 500 MG/100 ML BAG IV SCH ×2 (04:03→14:34)
[2018-12-28 06:01] LABS: Hematocrit 27.9 % (42.0-52.0); Hemoglobin 8.8 gm/dL (13.5-18.0); Mean Cell Volume 97.6 fl (78-100); Mean Corpuscular Hemoglobin 30.8 pg (27-31); Mean Corpuscular Hgb Conc 31.5 g/dl (32-36); Mean Platelet Volume 9.3 fl (8-11.3); Neutrophil % 74.3 % (42-75.0); Platelet Count 481 K/mm3 (150-450); Red Blood Count 2.86 M/mm3 (4.7-6.0); Red Cell Distribution Width 13.6 % (11.5-14.0); White Blood Count 9.4 K/mm3 (4.0-10.5)
[2018-12-28 06:12] LABS: Albumin * 1.7 gm/dl (3.4-5.0); Anion Gap 8.5 mmol/L (6.8-13.8); BUN/Creatinine Ratio 11.9 (9.0-21.6); Bilirubin, Total 0.4 mg/dL (0.0-1.1); Ca. Corrected For Albumin 9.3 mg/dL (8.4-10.2); Calcium * 7.8 mg/dL (7.9-10.9); Carbon Dioxide 28.3 mmol/L (24-32.6); Potassium 3.8 mmol/L (3.4-4.6)
[2018-12-28] MEDS: PANTOPRAZOLE SODIUM 40 MG TABLET.EC PO SCH (06:45)
[2018-12-28] MEDS: SPIRONOLACTONE 25 MG TABLET PO SCH (08:37)
[2018-12-28] MEDS: CALCIUM CARBONATE/VITAMIN D3 1 TAB TABLET PO SCH (08:37)
[2018-12-28] MEDS: POTASSIUM CHLORIDE 20 MEQ TABLET.SA PO SCH (08:37)
[2018-12-28] MEDS: FOLIC ACID 0.4 MG TABLET PO SCH (08:37)
[2018-12-28] MEDS: LACTOBACILLUS ACIDOPHILUS 1 EACH CAPSULE PO SCH (08:37)
[2018-12-28] MEDS: MEMANTINE HCL 10 MG TABLET PO SCH (08:37)
[2018-12-28] MEDS: CALCIUM CARBONATE 500 MG TAB.CHEW PO SCH (08:37)
[2018-12-28] MEDS: DONEPEZIL HCL 10 MG TABLET PO SCH (08:37)
[2018-12-28] MEDS: amLODIPine BESYLATE 5 MG TABLET PO SCH (08:37)
[2018-12-28] MEDS: CHOLECALCIFEROL 1,000 UNIT CAPSULE PO SCH (08:37)
[2018-12-28] MEDS: CIPROFLOXACIN IN 5 % DEXTROSE 400 MG/200 ML BAG IV SCH (09:25)
--- NOTE | 2018-12-28 09:47 | DS ---
(1) GI bleeding Problem: Resolved Qualifiers: (2) Hypokalemia Problem: Resolved (3) Vascular dementia of acute onset without behavioral disturbance Problem: Chronic (4) Severe dehydration Problem: Resolved (5) Hypernatremia Problem: Resolved (6) Physical deconditioning Problem: Chronic (7) Folic acid deficiency Problem: Acute Date of Discharge:: 12/28/18 Description of Stay: 73-year-old -French male admitted for lower GI bleed, he is severe dehydration, severe hypokalemia, severe hypernatremia was evaluated at bedside and was found to be afebrile and in no acute distress. Patient is electrolyte imbalance have resolved with adequate IV hydration and potassium replacement, his hemoglobin has stabilized in fact it has increased on this morning lab. No recurrence of GI bleeding was reported during the weekend but this morning orange colored stools but no bright red blood was reported. Patient denies any abdominal pain or bloating and maintains stable vitals. Fridays colonoscopy only revealed ongoing colitis and biopsies were taken and sent to pathology. We will follow-up with results to determine the etiology of the recurrent colitis. After thorough evaluation of the patient at bedside and confirming admission to the medicine, decision to discharge patient to the care home for ongoing care was made. We will discharge patient with p.o. steroids and instructions to follow-up with myself his PCP in 1 week. Patient will also be provided with an in order for outpatient CBC and CMP to follow on hemoglobin and electrolytes. Procedures Performed: none Results and Findings: Lab Pending Results 12/22/18 14:29: WBC 10.5, RBC 3.82 L, Hgb 11.7 L, Hct 37.5 L, MCV 98.2, MCH 30.6, MCHC 31.2 L, RDW 13.5, Plt Count 592 H, MPV 9.4, Neutrophils % (Manual) 56, Band Neuts % (Manual) 5 H, Lymphocytes % (Manual) 22, Monocytes % (Manual) 11 H, Eosinophils % (Manual) 2, Neutrophils # (Manual) 5.9, Lymphocytes # (Manual) 2.3, Monocytes # (Manual) 1.2 H, Eosinophils # (Manual) 0.2, Atypic/Reactive Lymphs 4 H, Platelet Estimate Increased H, RBC Morphology Normal 12/22/18 14:29: Sodium 153 H, Plasma Sodium 153 H, Potassium 2.3 L* D, Chloride 113 H, Carbon Dioxide 31.3, Anion Gap 11.0, BUN 12, Creatinine 1.76 H D, Est GFR (Non-Af Amer) 49 L D, BUN/Creatinine Ratio 6.8 L, Random Glucose 112 H, Calcium 8.7, Calcium Adj for Albumin 9.9, Total Bilirubin 1.5 H, AST 22, ALT 14 L, Alkaline Phosphatase 46 L, Total Protein 7.4, Albumin 2.1 L 12/22/18 17:12: ESR 94 H 12/22/18 17:12: Lactate Dehydrogenase 165, C-Reactive Prot, Quant 10.9 H 12/22/18 17:12: Lactic Acid, Venous 1.5 12/22/18 19:50: Stl C.difficile Tox A&B Negative 12/22/18 21:10: Sodium 153 H, Plasma Sodium 153 H, Potassium 2.2 L*, Chloride 114 H, Carbon Dioxide 28.1, Anion Gap 13.1, BUN 14, Creatinine 1.60 H, Est GFR (Non-Af Amer) 55 L, BUN/Creatinine Ratio 8.8 L, Random Glucose 111 H, Calcium 7.4 L 12/22/18 21:10: S.cerevisiae IgG Ab <20.0 12/22/18 21:43: Stool Occult Blood Positive H 12/23/18 03:00: Urine Osmolality 608 12/23/18 05:30: WBC 10.5, RBC 3.08 L, Hgb 9.6 L, Hct 30.9 L, MCV 100.3 H, MCH 31.2 H, MCHC 31.1 L, RDW 13.5, Plt Count 508 H, MPV 9.3, Immature Gran % (Auto) 0.80 H, Immature Gran # (Auto) 0.08 H, Neutrophils % 54.9, Lymphocytes % 30.6, Monocytes % 10.1 H, Eosinophils % 3.2 H, Basophils % 0.4, Nucleated RBC % 0.0, Neutrophils # 5.8, Lymphocytes # 3.21, Monocytes # 1.1 H, Eosinophils # 0.3, Absolute Basophils 0.0 12/23/18 05:30: Sodium 152 H, Plasma Sodium 152 H, Potassium 2.6 L, Chloride 111 H, Carbon Dioxide 27.9, Anion Gap 15.7 H, BUN 13, Creatinine 1.44 H, Est GFR (Non-Af Amer) 62, BUN/Creatinine Ratio 9.0, Random Glucose 114 H, Calcium 7.5 L, Calcium Adj for Albumin 9.0, Magnesium 1.7, Total Bilirubin 1.1, AST 17, ALT 8 L, Alkaline Phosphatase 38 L, Total Protein 6.0 L, Albumin 1.7 L 12/23/18 05:30: Vitamin B12 1886 H, Folate 6.9 L 12/23/18 13:30: Sodium 147 H, Plasma Sodium 147 H, Potassium 2.6 L, Chloride 111 H, Carbon Dioxide 27.7, Anion Gap 10.9, BUN 12, Creatinine 1.19, Est GFR (Non-Af Amer) 77 D, BUN/Creatinine Ratio 10.1, Random Glucose 127 H, Calcium 7.7 L 12/24/18 05:48: ESR 73 H 12/24/18 05:48: Sodium 146 H, Plasma Sodium 147 H, Potassium 2.8 L, Chloride 109 H, Carbon Dioxide 24.8, Anion Gap 15.0 H, BUN 10, Creatinine 1.16, Est GFR (Non- Af Amer) 80, BUN/Creatinine Ratio 8.6 L, Random Glucose 162 H, Calcium 7.5 L, Calcium Adj for Albumin 9.2, Total Bilirubin 0.7, AST 13, ALT 7 L, Alkaline Phosphatase 33 L, C-Reactive Prot, Quant 7.6 H, Total Protein 5.3 L, Albumin 1.5 L 12/24/18 05:48: WBC 6.8 D, RBC 2.70 L, Hgb 8.4 L, Hct 26.8 L, MCV 99.3, MCH 31.1 H, MCHC 31.3 L, RDW 13.5, Plt Count 418, MPV 10.2, Neutrophils % (Manual) 62, Band Neuts % (Manual) 20 H, Lymphocytes % (Manual) 13 L, Monocytes % (Manual) 3, Neutrophils # (Manual) 4.2, Lymphocytes # (Manual) 0.9 L, Monocytes # (Manual) 0.2, Atypic/Reactive Lymphs 2, Platelet Estimate Normal, Polychromasia 1+, Hypochromasia Trace, Basophilic Stippling Trace 12/25/18 05:37: WBC 4.8 D, RBC 2.58 L, Hgb 8.0 L, Hct 24.9 L, MCV 96.5, MCH 31.0, MCHC 32.1, RDW 13.2, Plt Count 412, MPV 9.3, Neutrophils % (Manual) 68, Band Neuts % (Manual) 12 H, Lymphocytes % (Manual) 15 L, Monocytes % (Manual) 4, Immature Granulocytes 1, Neutrophils # (Manual) 3.3, Lymphocytes # (Manual) 0.7 L, Monocytes # (Manual) 0.2, Platelet Estimate Normal, Polychromasia 1+, Hypochromasia Trace, Basophilic Stippling Trace 12/25/18 05:37: Sodium 144 H, Plasma Sodium 145 H, Potassium 3.1 L, Chloride 109 H, Carbon Dioxide 27.3, Anion Gap 10.8, BUN 10, Creatinine 1.05, Est GFR (Non-Af Amer) 89, BUN/Creatinine Ratio 9.5, Random Glucose 169 H, Calcium 7.7 L, Calcium Adj for Albumin 9.4, Total Bilirubin 0.5, AST 17, ALT 9 L, Alkaline Phosphatase 31 L, Total Protein 5.0 L, Albumin 1.5 L 12/25/18 15:33: Pathology Specimen Sent to path 12/26/18 05:10: WBC 5.2, RBC 2.71 L, Hgb 8.3 L, Hct 26.5 L, MCV 97.8, MCH 30.6, MCHC 31.3 L, RDW 13.6, Plt Count 416, MPV 9.6, Immature Gran % (Auto) 1.90 H, Immature Gran # (Auto) 0.10 H, Neutrophils % 70.9, Lymphocytes % 17.6 L, Monocytes % 9.4 H, Eosinophils % 0.0, Basophils % 0.2, Nucleated RBC % 0.0, Neutrophils # 3.7, Lymphocytes # 0.92 L, Monocytes # 0.5, Eosinophils # 0.0, Absolute Basophils 0.0 12/26/18 05:10: Sodium 140, Plasma Sodium 141, Potassium 3.4, Chloride 109 H, Carbon Dioxide 25.1, Anion Gap 9.3, BUN 12, Creatinine 1.20, Est GFR (Non-Af Amer) 77, BUN/Creatinine Ratio 10.0, Random Glucose 169 H, Calcium 7.4 L, Calcium Adj for Albumin 9.1, Total Bilirubin 0.4, AST 19, ALT 8 L, Alkaline Phosphatase 36 L, C-Reactive Prot, Quant 2.1 H, Total Protein 5.1 L, Albumin 1.5 L 12/26/18 05:10: ESR 54 H 12/28/18 05:50: WBC 9.4 D, RBC 2.86 L, Hgb 8.8 L, Hct 27.9 L, MCV 97.6, MCH 30.8, MCHC 31.5 L, RDW 13.6, Plt Count 481 H, MPV 9.3, Immature Gran % (Auto) 4.50 H, Immature Gran # (Auto) 0.42 H, Neutrophils % 74.3, Lymphocytes % 15.5 L, Monocytes % 5.5, Eosinophils % 0.0, Basophils % 0.2, Nucleated RBC % 0.0, Neutrophils # 7.0 H, Lymphocytes # 1.45 L, Monocytes # 0.5, Eosinophils # 0.0, Absolute Basophils 0.0 12/28/18 05:50: Sodium 143 H, Plasma Sodium 144 H, Potassium 3.8, Chloride 110 H, Carbon Dioxide 28.3, Anion Gap 8.5, BUN 14, Creatinine 1.18, Est GFR (Non-Af Amer) 78, BUN/Creatinine Ratio 11.9, Random Glucose 177 H, Calcium 7.8 L, Calcium Adj for Albumin 9.3, Total Bilirubin 0.4, AST 18, ALT 15 L, Alkaline Phosphatase 40 L, Total Protein 5.0 L, Albumin 1.7 L Discharge Location: [facility] Disposition: Intermediate Care Facility ICF Condition: Stable Face to Face Encounter completed per [facility] Guidelines: No Level of Care: ICF Discharge Activity: Activity as tolerated Discharge Diet: General/regular food Referrals: Carmencita Landrum MD [Primary Care Provider] - Prescriptions (Any new or edited meds): Lactobacillus Acidophilus [Bacid] 1 ea PO BID #60 cap Transmission Status: Pending to [place], [place] Folic Acid 0.4 mg PO DAILY #30 tab Transmission Status: Pending to [place] Prednisone 40 mg PO DAILY 7 Days #7 tab Transmission Status: Pending to [place] Pantoprazole Sodium [Protonix] 40 mg PO DAILY #30 mg Transmission Status: Pending to [place], [place] Complete Home Medications List: Complete Home Medication List: acetaminophen 325 mg capsule 650 mg PO HS PRN cap 11/05/17 memantine ER 28 mg-donepezil 10 mg capsule sprinkle,ext.release 24 hr 1 cap PO DAILY 11/13/17 spironolactone 25 mg tablet 12.5 mg PO DAILY #90 tab 08/05/18 cholecalciferol (vitamin D3) 2,000 unit tablet 2,000 unit PO DAILY #30 tab 12/02/18 Amlodipine Besylate 5 mg PO DAILY 12/12/18 Tamsulosin HCl [Flomax] 0.8 mg PO BID 12/12/18 Calcium Carbonate/Vitamin D3 [Calcium 500 mg-Vit D3 600 Unit] 1 ea PO BID #60 tab 12/15/18 Calcium Carbonate [Tums] 500 mg PO DAILY tab.chew 12/28/18 Donepezil HCl [Aricept] 10 mg PO DAILY tablet 12/28/18 Folic Acid 0.4 mg PO DAILY #30 tab 12/28/18 Lactobacillus Acidophilus [Bacid] 1 ea PO BID #60 cap 12/28/18 Memantine HCl [Namenda] 10 mg PO BID tablet 12/28/18 Pantoprazole Sodium [Protonix] 40 mg PO DAILY #30 mg 12/28/18 Prednisone 40 mg PO DAILY 7 Days #7 tab 12/28/18
[2018-12-28 14:32] VITALS: BP 138/62
[2018-12-29 17:47] LABS: P-ANCA Titer DNR titer (<1:20)
== END 2018-12-28 14:10 | DRG 392 ==
LOC: LAB 14:09 → MS 16:04
PROVIDERS: ADMIT Family Medicine; ATTEND Family Medicine
DX: I10 Essential (primary) hypertension; E87.6 Hypokalemia; Z65.9 Problem related to unspecified psychosocial circumstances; R63.0 Anorexia; E53.8 Deficiency of other specified B group vitamins; D62 Acute posthemorrhagic anemia; E86.0 Dehydration; E78.5 Hyperlipidemia, unspecified; E87.0 Hyperosmolality and hypernatremia; F01.50 Vascular dementia, unspecified severity, without behavioral disturbance, psychotic disturbance, mood disturbance, and anxiety; K52.9 Noninfective gastroenteritis and colitis, unspecified; R63.8 Other symptoms and signs concerning food and fluid intake
CPT/HCPCS: 36415; 80048; 80053; 82272; 82607; 82746; 83605; 83615; 83735; 83935; 83993; 85007; 85025; 85652; 86021; 86140; 86671; 87045; 87046; 87493; 88305; 90686; 97161

== ENCOUNTER 2019-05-16 16:23 | Observation (INO) ==
--- NOTE | 2019-05-16 16:40 | ERNOTE ---
<Gerber Rain - Last Filed: 05/16/19 19:35> Chest Pain/Cardiac HPI Date of Service: 05/16/19 Chief Complaint: Chest Pain Time Seen by Provider: 05/16/19 16:28 Source: EMS, [facility] records Exam Limitations: dementia Immunizations: IMMUNIZATION HX Immunizations Up to Date Yes History of Influenza Vaccine Yes Hx Pneumococcal Vaccination No Allergies/Adverse Reactions: Allergies No Known Allergies Allergy (Verified 05/04/19 14:36) Home Medications: HOME MEDICATIONS acetaminophen 325 mg capsule 650 mg PO HS PRN cap 11/05/17 [Last Taken Unknown] spironolactone 25 mg tablet 12.5 mg PO DAILY #90 tab 08/05/18 [Last Taken 12/12/18] Folic Acid 0.4 mg PO DAILY #30 tab 12/28/18 [Last Taken Unknown] Lactobacillus Acidophilus [Bacid] 1 ea PO BID #60 cap 12/28/18 [Last Taken Unknown] Pantoprazole Sodium [Protonix] 40 mg PO DAILY #30 mg 12/28/18 [Last Taken Unknown] memantine ER 28 mg-donepezil 10 mg capsule sprinkle,ext.release 24 hr 1 cap PO DAILY #90 ea 12/28/18 [Last Taken Unknown] calcium carbonate 600 mg (1,500 mg)-vitamin D3 400 unit tablet 1 tab PO BID #60 tab 12/29/18 [Last Taken Unknown] tamsulosin 0.4 mg capsule 0.8 mg PO DAILY #60 cap 12/29/18 [Last Taken Unknown] mesalamine 1.2 gram tablet,delayed release 2.4 g PO BID tab 03/05/19 [Last Taken Unknown] quetiapine 25 mg tablet 25 mg PO HS #30 tab 03/05/19 [Last Taken Unknown] sertraline 50 mg tablet 50 mg PO DAILY #90 tab 03/05/19 [Last Taken Unknown] food supplemt, lactose-reduced 0.06 gram-1 kcal/mL oral liquid 1 ea PO BID #7110 ml 05/03/19 [Last Taken Unknown] amlodipine 5 mg tablet 5 mg PO DAILY 05/04/19 [Last Taken Unknown] Memantine HCl/Donepezil HCl [Namzaric 28 mg-10 mg Capsule] 1 ea PO DAILY 05/16/19 [Last Taken Unknown] Narrative: [facility] c/o chest pain and dyspnea, given asa and nitroglycerin sl. upon arrival denies dyspnea or chest pain Timing: resolved prior to arrival Severity/Quality: severe, dull Location: substernal Chest Pain Radiation: no radiation Activities at Onset: none Modifying Factors - Improves: Present: nothing Modifying Factors - Worsens: Present: nothing Nitro Today/Relief: 0.4 mg x 3 Aspirin Treatment Today: no aspirin today Associated Symptoms: Present: denies symptoms Prior Chest Pain/Cardiac Workup: Reports: no prior cardiac workup Review of Systems - Narrative Narrative: unable to obtain ros due to patients dementia - Review of Systems Constitutional: Present: See HPI EYE: Present: no symptoms reported ENT: Present: no symptoms reported Respiratory: Present: no symptoms reported Cardiology: Present: See HPI, chest pain Gastrointestinal/Abdominal: Present: no symptoms reported Genitourinary: Present: no symptoms reported Musculoskeletal: Present: no symptoms reported Skin: Present: no symptoms reported Neurological: Present: no symptoms reported Endocrine: Present: no symptoms reported Hematologic/Lymphatic: Present: no symptoms reported Psych: Present: no symptoms reported All Other Systems: All systems neg except as marked Medical History (Last Reviewed 05/04/19 @ 14:24 by Tomi Richter LPN) Vascular dementia of acute onset without behavioral disturbance (Chronic) DJD (degenerative joint disease) of knee Onset Date: ~11/2013 GERD (gastroesophageal reflux disease) HTN (hypertension) Onset Date: ~2012 anteroseptal, atypical and inferior wall fixed detect with EF low at 50% on nuclear study, however ECHO on 11/13 did not show and WMA only delayed relaxation an normal LVEF History of BPH Hyperlipidemia Memory loss Onset Date: ~04/02/14 due to vascular dementia Surgical History: Surgical History (Last Reviewed 05/04/19 @ 14:24 by Tomi Richter LPN) H/O colonoscopy Onset Date: 12/28/18 08/16/11 David-combined adenomatous and hyperplastic polyp. Repeat 5 yrs. 12/14/18 Eleuterio-moderate to severe chronic active colitis. 12/28/18 Bagan-to 60cm-mild to moderate focalchronic active colitis. H/O inguinal hernia repair Onset Date: ~04/16/13 Dr. Hernandez-left w/mesh H/O transurethral resection of prostate Onset Date: ~02/25/13 History of excision of lesion Onset Date: ~04/16/13 david- left hip mass-ancrochordon(skin tag). History of stress test Onset Date: ~05/30/16 treadmill-normal Hx laparoscopic cholecystectomy Onset Date: ~02/19/13 Dr. Hernandez-w/cholangiogram Internal hemorrhoid Onset Date: ~11/05/17 treated with infrared in 1994 [facility] Family History: Family History (Last Reviewed 05/04/19 @ 14:24 by Tomi Richter LPN) Sister Diabetes Heart disease Father Gunshot wound Mother Myocardial infarction CVA (cerebral vascular accident) Brother Myocardial infarction Sister No problems noted. Social History: (Last Updated 05/04/19 @ 15:32 by Carmencita Landrum MD) Social History: Marital status: lives independently: Yes household members: none current occupational status: retired Highest education level completed: high school graduate Service: No Tobacco: Smoking Status: Former smoker how long ago did patient quit smoking: age 29 Alcohol: alcohol intake: current Alcohol type: wine Substance Use: substance use type: does not use Dietary Habits: caffeine: Yes Physical Exam - Physical Exam General Appearance: Present: no apparent distress Head Exam: Present: normal inspection, no evidence of injury Eye Exam: Normal inspection: bilateral, PERRL: bilateral, EOMI: bilateral Ears, Nose, Throat: Present: normal ENT inspection, normal pharynx Neck: Present: normal inspection, nontender Respiratory: Present: no respiratory distress, normal breath sounds, no accessory muscle use, chest nontender, lungs clear Cardiovascular/Chest: Present: regular rate, rhythm, no murmur, normal peripheral pulses Gastrointestinal/Abdominal: Present: normal bowel sounds, nontender, nondistended, soft, no organomegaly Back Exam: Present: normal inspection, normal range of motion, no CVA tenderness, no vertebral tenderness Extremity Exam: Present: normal inspection, non-tender, normal range of motion, no edema Neurological Exam: Present: alert, oriented, normal mood/affect, no motor/sensory deficits Skin Exam: Present: normal color, warm/dry Lymphatic Exam: Present: no adenopathy Progress - Date and Time Seen: Date and Time: 05/16/19 19:35 patient continues to deny chest pain - Results and Orders Patient's Lab Results:: I have reviewed the patient's lab results. - Vital Signs Patient's Vital Signs:: I have reviewed the patient's vital signs. Vital Signs: Vital Signs 05/16/19 16:24 Temperature 37.1 C Pulse Rate 98 Respiratory Rate 12 Blood Pressure 110/80 O2 Sat by Pulse Oximetry 91 L - EKG EKG #1 EKG: NSR - X-Ray X-Ray #1 X-Ray: chest Interpretation: Interp. by me - no acute process - Progress/Reassessment Chief Complaint: Chest Pain Progress:: Improved - Transfer of Care Physician Sign Out: Gerber Rain Receiving Physician: Bill Martin Expected Disposition: Discharge Plan - Plan Plan: to be discharge Departure Clinical Impression: Chest pain Qualifiers: Chest pain type: unspecified Qualified Code(s): R07.9 - Chest pain, unspecified - Departure Disposition: Still a patient Condition: Stable <Bill Martin - Last Filed: 05/16/19 21:55> Chest Pain/Cardiac HPI Immunizations: IMMUNIZATION HX Immunizations Up to Date Yes History of Influenza Vaccine Yes Hx Pneumococcal Vaccination No Medical History (Last Reviewed 05/04/19 @ 14:24 by Tomi Richter LPN) Vascular dementia of acute onset without behavioral disturbance (Chronic) DJD (degenerative joint disease) of knee Onset Date: ~11/2013 GERD (gastroesophageal reflux disease) HTN (hypertension) Onset Date: ~2012 anteroseptal, atypical and inferior wall fixed detect with EF low at 50% on nuclear study, however ECHO on 11/13 did not show and WMA only delayed relaxation an normal LVEF History of BPH Hyperlipidemia Memory loss Onset Date: ~04/02/14 due to vascular dementia Surgical History: Surgical History (Last Reviewed 05/04/19 @ 14:24 by Tomi Richter LPN) H/O colonoscopy Onset Date: 12/28/18 08/16/11 David-combined adenomatous and hyperplastic polyp. Repeat 5 yrs. 12/14/18 Eleuterio-moderate to severe chronic active colitis. 12/28/18 Bagan-to 60cm-mild to moderate focalchronic active colitis. H/O inguinal hernia repair Onset Date: ~04/16/13 Dr. Hernandez-left w/mesh H/O transurethral resection of prostate Onset Date: ~02/25/13 History of excision of lesion Onset Date: ~04/16/13 david- left hip mass-ancrochordon(skin tag). History of stress test Onset Date: ~05/30/16 treadmill-normal Hx laparoscopic cholecystectomy Onset Date: ~02/19/13 Dr. Hernandez-w/cholangiogram Internal hemorrhoid Onset Date: ~11/05/17 treated with infrared in 1994 [facility] Family History: Family History (Last Reviewed 05/04/19 @ 14:24 by Tomi Richter LPN) Sister Diabetes Heart disease Father Gunshot wound Mother Myocardial infarction CVA (cerebral vascular accident) Brother Myocardial infarction Sister No problems noted. Social History: (Last Updated 05/04/19 @ 15:32 by Carmencita Landrum MD) Social History: Marital status: lives independently: Yes household members: none current occupational status: retired Highest education level completed: high school graduate Service: No Tobacco: Smoking Status: Former smoker how long ago did patient quit smoking: age 29 Alcohol: alcohol intake: current Alcohol type: wine Substance Use: substance use type: does not use Dietary Habits: caffeine: Yes Progress - Results and Orders Patient's Lab Results:: I have reviewed the patient's lab results. - Vital Signs Patient's Vital Signs:: I have reviewed the patient's vital signs. Vital Signs: Vital Signs 05/16/19 16:24 05/16/19 16:58 05/16/19 17:32 Temperature 37.1 C Pulse Rate 98 81 94 Respiratory Rate 12 Blood Pressure 110/80 131/80 118/43 O2 Sat by Pulse Oximetry 91 L 94 95 05/16/19 18:01 05/16/19 18:36 05/16/19 19:53 Temperature 36.9 C Pulse Rate 79 88 88 Respiratory Rate 12 Blood Pressure 115/79 110/75 129/85 O2 Sat by Pulse Oximetry 95 94 93 05/16/19 20:21 Temperature Pulse Rate 96 Respiratory Rate 15 Blood Pressure 134/78 O2 Sat by Pulse Oximetry 96 - X-Ray X-Ray #1 Interpretation: Reviewed by me - Progress/Reassessment Progress Note-Subjective: 05/16/19 21:08 I spoke with the patient about repeat troponin which is mildly elevated from the previous although still in normal limits. I discussed staying for serial enzymes to rule out [facility] patient is agreeable to that. I spoke with Dr. Bragg he agrees with admission for rule out [facility].
[2019-05-16 16:47] LABS: Hematocrit 38.9 % (42.0-52.0); Hemoglobin 12.6 gm/dL (13.5-18.0); Mean Corpuscular Hemoglobin 29.8 pg (27-31); Mean Corpuscular Hgb Conc 32.4 g/dl (32-36); Mean Platelet Volume 8.8 fl (8-11.3); Neutrophil # 9.2 K/mm3 (1.3-6.0); Neutrophil % 69.3 % (42-75.0); Platelet Count 336 K/mm3 (150-450); Red Blood Count 4.23 M/mm3 (4.7-6.0); Red Cell Distribution Width 13.1 % (11.5-14.0); White Blood Count 13.3 K/mm3 (4.0-10.5)
[2019-05-16 16:58] LABS: Prothrombin Time (Patient) 12.4 Seconds (9.1-10.7)
[2019-05-16 16:59] LABS: INR 1.26 INR (0.92-1.08); Partial Thrombolplastin Time 26.1 Seconds (24-32)
[2019-05-16 17:05] LABS: ALT 8 U/L (19-67); AST 13 U/L (0-48); Alkaline Phosphatase * 60 U/L (50-170); Anion Gap 12.6 mmol/L (6.8-13.8); BUN/Creatinine Ratio 13.5 (9.0-21.6); Bilirubin, Total 0.6 mg/dL (0.0-1.1); Blood Urea Nitrogen 21 mg/dL (6-23); Ca. Corrected For Albumin 9.8 mg/dL (8.4-10.2); Calcium * 9.3 mg/dL (7.9-10.9); Carbon Dioxide 27.6 mmol/L (24-32.6); Chloride 104 mmol/L (97-106); Glucose * 114 mg/dL (70-110); Potassium 4.2 mmol/L (3.4-4.6); Sodium 140 mmol/L (132-142); Total Protein 7.8 gm/dL (6.2-8.2); Troponin I Less than 0.017 ng/mL (0.00-0.10)
[2019-05-16] MEDS ORDERED: ACETAMINOPHEN 650 MG TABLET PO PRN (22:30)
--- NOTE | 2019-05-16 23:14 | HP ---
Chief Complaint - Chief Complaint Date of Service: 05/16/19 Time of Service: 22:25 Chief Complaint: Chest pain rule out MT History of Present Illness: Reginald Cohen is a 74-year-old black male who was at the [facility] apparently someone thought he was having chest pain. He came to the hospital to be evaluated and EKG and troponin was normal. The second troponin did rise some but still within normal reference range. ER doctor wanted to have him admitted for observation which I concurred. He has not had any chest discomfort since arriving in the ER or over here on general medical floor. He does not recall having any chest pain earlier today either. He is in normal sinus rhythm. There is no acute injury pattern on his EKG. Medical History (Last Reviewed 05/16/19 @ 22:17 by Phillip Calvillo RN) Vascular dementia of acute onset without behavioral disturbance (Chronic) DJD (degenerative joint disease) of knee Onset Date: ~11/2013 GERD (gastroesophageal reflux disease) HTN (hypertension) Onset Date: ~2012 anteroseptal, atypical and inferior wall fixed detect with EF low at 50% on nuclear study, however ECHO on 11/13 did not show and WMA only delayed relaxation an normal LVEF History of BPH Hyperlipidemia Memory loss Onset Date: ~04/02/14 due to vascular dementia Surgical History: Surgical History (Last Reviewed 05/16/19 @ 22:17 by Phillip Calvillo RN) H/O colonoscopy Onset Date: 12/28/18 08/16/11 David-combined adenomatous and hyperplastic polyp. Repeat 5 yrs. 12/14/18 Eleuterio-moderate to severe chronic active colitis. 12/28/18 Bagan-to 60cm-mild to moderate focalchronic active colitis. H/O inguinal hernia repair Onset Date: ~04/16/13 Dr. Hernandez-left w/mesh H/O transurethral resection of prostate Onset Date: ~02/25/13 History of excision of lesion Onset Date: ~04/16/13 david- left hip mass-ancrochordon(skin tag). History of stress test Onset Date: ~05/30/16 treadmill-normal Hx laparoscopic cholecystectomy Onset Date: ~02/19/13 Dr. Hernandez-w/cholangiogram Internal hemorrhoid Onset Date: ~11/05/17 treated with infrared in 1994 [facility] Family History: Family History (Last Reviewed 05/16/19 @ 22:17 by Phillip Calvillo RN) Sister Diabetes Heart disease Father Gunshot wound Mother Myocardial infarction CVA (cerebral vascular accident) Brother Myocardial infarction Sister No problems noted. Social History: (Last Reviewed 05/16/19 @ 22:17 by Phillip Calvillo RN) Social History: Marital status: lives independently: Yes household members: none current occupational status: retired Highest education level completed: high school graduate Service: No Tobacco: Smoking Status: Former smoker how long ago did patient quit smoking: age 29 Alcohol: alcohol intake: current Alcohol type: wine Substance Use: substance use type: does not use Dietary Habits: caffeine: Yes Review Of Systems (GEN) - Review of Systems Generalized/Overall Review: Present: No Symptoms Reported EENTM: Present: No Symptoms Reported Respiratory: Present: No Symptoms Reported Cardiac: Present: No Symptoms Reported, Chest Pain - Reported by [facility] but patient has no recollection Abdominal: Present: No Symptoms Reported Genitourinary: Present: No Symptoms Reported Neurological: Present: No Symptoms Reported Skin: Present: No Symptoms Reported Endocrine: Present: No Symptoms Reported Immunizations: IMMUNIZATION HX Immunizations Up to Date Yes History of Influenza Vaccine Yes Hx Pneumococcal Vaccination No Allergies/Adverse Reactions: Allergies Allergy/AdvReac Type Severity Reaction Status Date / Time No Known Allergies Allergy Verified 05/16/19 22:17 Home Medications: HOME MEDICATIONS acetaminophen 325 mg capsule 650 mg PO HS PRN cap 11/05/17 [Last Taken Unknown] spironolactone 25 mg tablet 12.5 mg PO DAILY #90 tab 08/05/18 [Last Taken 12/12/18] Folic Acid 0.4 mg PO DAILY #30 tab 12/28/18 [Last Taken Unknown] Lactobacillus Acidophilus [Bacid] 1 ea PO BID #60 cap 12/28/18 [Last Taken Unknown] Pantoprazole Sodium [Protonix] 40 mg PO DAILY #30 mg 12/28/18 [Last Taken Unknown] memantine ER 28 mg-donepezil 10 mg capsule sprinkle,ext.release 24 hr 1 cap PO DAILY #90 ea 12/28/18 [Last Taken Unknown] calcium carbonate 600 mg (1,500 mg)-vitamin D3 400 unit tablet 1 tab PO BID #60 tab 12/29/18 [Last Taken Unknown] tamsulosin 0.4 mg capsule 0.8 mg PO DAILY #60 cap 12/29/18 [Last Taken Unknown] mesalamine 1.2 gram tablet,delayed release 2.4 g PO BID tab 03/05/19 [Last Taken Unknown] quetiapine 25 mg tablet 25 mg PO HS #30 tab 03/05/19 [Last Taken Unknown] sertraline 50 mg tablet 50 mg PO DAILY #90 tab 03/05/19 [Last Taken Unknown] food supplemt, lactose-reduced 0.06 gram-1 kcal/mL oral liquid 1 ea PO BID #7110 ml 05/03/19 [Last Taken Unknown] amlodipine 5 mg tablet 5 mg PO DAILY 05/04/19 [Last Taken Unknown] Memantine HCl/Donepezil HCl [Namzaric 28 mg-10 mg Capsule] 1 ea PO DAILY 05/16/19 [Last Taken Unknown] Exam - Exam Vital Signs: Vital Signs - Last Taken Temp 36.9 C 05/16/19 18:36 Pulse 104 H 05/16/19 21:53 Resp 17 05/16/19 21:53 BP 125/76 05/16/19 21:53 Pulse Ox 92 L 05/16/19 21:53 Constitutional: Present: Alert, Oriented x3, Cooperative, Well developed, Well nourished, No distress ENT Exam: Present: normal ENT inspection, hearing grossly normal Eye Exam: bilateral eye: normal inspection, PERRL, EOMI Neck: Present: non-tender, full range of motion, supple, normal inspection Back Exam: Present: normal inspection, no CVA tenderness, no vertebral tenderness Breasts: Present: Exam deferred Respiratory: Present: chest non-tender, lungs clear, normal breath sounds, no respiratory distress, no accessory muscle use Cardiovascular/Chest: Present: normal peripheral pulses, regular rate, rhythm, no chest tenderness, no edema, no gallop, no JVD, no murmur, no rub Peripheral Pulses: carotid (R): 2+, carotid (L): 2+, radial (R): 2+, radial (L): 2+ Abdomen: Present: Normal bowel sounds, soft, nontender, nondistended, no rebound tenderness, no hepatospenomegaly, no masses /Rectal: Present: Exam deferred Extremity: Present: normal range of motion, non-tender, normal inspection, no pedal edema Skin Exam: Present: normal color, warm/dry, no cyanosis Lymphatic: Present: no adenopathy 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, normal cerebellar test, no motor/sensory deficits Appearance: Present: appropriate appearance, appropriate insight, neat, no memory impairment Eye contact: Present: cooperative, good eye contact, normal speech Thoughts: Present: normal thought pattern, no apparent hallucination Diagnostic Studies: Abnormal Lab Results 05/16/19 05/16/19 05/16/19 Range/Units 16:38 16:38 16:38 WBC 13.3 H (4.0-10.5) K/mm3 RBC 4.23 L (4.7-6.0) M/mm3 Hgb 12.6 L (13.5-18.0) gm/dL Hct 38.9 L (42.0-52.0) % Immature Gran % (Auto) 0.50 H (0.001-0.429) % Immature Gran # (Auto) 0.06 H (0.000-0.0310) K/mm3 Neutrophils # 9.2 H (1.3-6.0) K/mm3 PT 12.4 H (9.1-10.7) Seconds INR (Anticoag Therapy) 1.26 H (0.92-1.08) INR Creatinine 1.55 H (0.4-1.4) mg/dL Est GFR (Non-Af Amer) 57 L (60-130) mL/min Random Glucose 114 H (70-110) mg/dL ALT 8 L (19-67) U/L Albumin 3.0 L (3.4-5.0) gm/dl Laboratory Results WBC 13.3 K/mm3 (4.0-10.5) H 05/16/19 16:38 RBC 4.23 M/mm3 (4.7-6.0) L 05/16/19 16:38 Hgb 12.6 gm/dL (13.5-18.0) L 05/16/19 16:38 Hct 38.9 % (42.0-52.0) L 05/16/19 16:38 MCV 92.0 fl (78-100) 05/16/19 16:38 MCH 29.8 pg (27-31) 05/16/19 16:38 MCHC 32.4 g/dl (32-36) 05/16/19 16:38 RDW 13.1 % (11.5-14.0) 05/16/19 16:38 Plt Count 336 K/mm3 (150-450) 05/16/19 16:38 MPV 8.8 fl (8-11.3) 05/16/19 16:38 Immature Gran % (Auto) 0.50 % (0.001-0.429) H 05/16/19 16:38 Immature Gran # (Auto) 0.06 K/mm3 (0.000-0.0310) H 05/16/19 16:38 Neutrophils % 69.3 % (42-75.0) 05/16/19 16:38 Lymphocytes % 21.2 % (20-51) 05/16/19 16:38 Monocytes % 6.5 % (0.0-9) 05/16/19 16:38 Eosinophils % 1.8 % (0.0-3.0) 05/16/19 16:38 Basophils % 0.7 % (0.0-1.0) 05/16/19 16:38 Nucleated RBC % 0.0 k/mm3 (0-1) 05/16/19 16:38 Neutrophils # 9.2 K/mm3 (1.3-6.0) H 05/16/19 16:38 Lymphocytes # 2.81 k/mm3 (1.5-3.5) 05/16/19 16:38 Monocytes # 0.9 k/mm3 (0.0-1.0) 05/16/19 16:38 Eosinophils # 0.2 k/mm3 (0.0-0.7) 05/16/19 16:38 Absolute Basophils 0.1 k/mm3 (0.0-0.1) 05/16/19 16:38 PT 12.4 Seconds (9.1-10.7) H 05/16/19 16:38 INR (Anticoag Therapy) 1.26 INR (0.92-1.08) H 05/16/19 16:38 PTT ([place]) 26.1 Seconds (24-32) 05/16/19 16:38 Sodium 140 mmol/L (132-142) 05/16/19 16:38 Plasma Sodium 140 mmol/L (130-142) 05/16/19 16:38 Potassium 4.2 mmol/L (3.4-4.6) 05/16/19 16:38 Chloride 104 mmol/L (97-106) 05/16/19 16:38 Carbon Dioxide 27.6 mmol/L (24-32.6) 05/16/19 16:38 Anion Gap 12.6 mmol/L (6.8-13.8) 05/16/19 16:38 BUN 21 mg/dL (6-23) D 05/16/19 16:38 Creatinine 1.55 mg/dL (0.4-1.4) H 05/16/19 16:38 Est GFR (Non-Af Amer) 57 mL/min (60-130) L 05/16/19 16:38 BUN/Creatinine Ratio 13.5 (9.0-21.6) 05/16/19 16:38 Random Glucose 114 mg/dL (70-110) H 05/16/19 16:38 Calcium 9.3 mg/dL (7.9-10.9) 05/16/19 16:38 Calcium Adj for Albumin 9.8 mg/dL (8.4-10.2) 05/16/19 16:38 Total Bilirubin 0.6 mg/dL (0.0-1.1) 05/16/19 16:38 AST 13 U/L (0-48) 05/16/19 16:38 ALT 8 U/L (19-67) L 05/16/19 16:38 Alkaline Phosphatase 60 U/L (50-170) 05/16/19 16:38 Troponin I 0.038 ng/mL (0.00-0.10) 05/16/19 20:10 Total Protein 7.8 gm/dL (6.2-8.2) 05/16/19 16:38 Albumin 3.0 gm/dl (3.4-5.0) L 05/16/19 16:38
[2019-05-17 06:47] LABS: Hematocrit 39.7 % (42.0-52.0); Hemoglobin 12.6 gm/dL (13.5-18.0); Mean Cell Volume 91.1 fl (78-100); Mean Corpuscular Hemoglobin 28.9 pg (27-31); Mean Corpuscular Hgb Conc 31.7 g/dl (32-36); Mean Platelet Volume 9.3 fl (8-11.3); Neutrophil # 5.7 K/mm3 (1.3-6.0); Neutrophil % 63.4 % (42-75.0); Platelet Count 349 K/mm3 (150-450); Red Blood Count 4.36 M/mm3 (4.7-6.0); Red Cell Distribution Width 13.1 % (11.5-14.0); White Blood Count 8.9 K/mm3 (4.0-10.5)
[2019-05-17 06:57] LABS: Albumin * 2.8 gm/dl (3.4-5.0); BUN/Creatinine Ratio 11.2 (9.0-21.6); Bilirubin, Total 0.9 mg/dL (0.0-1.1); Ca. Corrected For Albumin 9.5 mg/dL (8.4-10.2); Calcium * 8.9 mg/dL (7.9-10.9); Carbon Dioxide 26.2 mmol/L (24-32.6); Potassium 4.2 mmol/L (3.4-4.6); Total Protein 7.5 gm/dL (6.2-8.2)
[2019-05-17 07:00] LABS: Troponin I 0.052 ng/mL (0.00-0.10)
[2019-05-17] MEDS ORDERED: PANTOPRAZOLE SODIUM 40 MG TABLET.EC PO SCH (07:00)
[2019-05-17] MEDS ORDERED: MEMANTINE HCL 10 MG TABLET PO SCH (09:00)
[2019-05-17] MEDS ORDERED: DONEPEZIL HCL PO SCH (09:00)
[2019-05-17] MEDS ORDERED: FOLIC ACID 0.4 MG TABLET PO SCH (09:00)
[2019-05-17] MEDS ORDERED: SERTRALINE HCL 50 MG TABLET PO SCH (09:00)
[2019-05-17] MEDS ORDERED: LACTOBACILLUS ACIDOPHILUS 1 EACH CAPSULE PO SCH (09:00)
[2019-05-17] MEDS ORDERED: TAMSULOSIN HCL 0.4 MG CAP.SR.24H PO SCH (09:00)
[2019-05-17] MEDS ORDERED: SPIRONOLACTONE 25 MG TABLET PO SCH (09:00)
[2019-05-17] MEDS ORDERED: amLODIPine BESYLATE 5 MG TABLET PO SCH (09:00)
[2019-05-17] MEDS ORDERED: MEMANTINE HCL PO SCH (09:00)
[2019-05-17] MEDS ORDERED: [UNRECOGNIZED DRUG - OTHER] PO SCH (09:00)
[2019-05-17] MEDS ORDERED: MESALAMINE 2.4 GM PO SCH (09:00)
[2019-05-17] MEDS ORDERED: CALCIUM CARBONATE/VITAMIN D3 1 TAB TABLET PO SCH (09:00)
--- NOTE | 2019-05-17 09:08 | DS ---
Date of Discharge:: 05/17/19 Hospital Course: 74-year-old -[place] male with past medical history of Alzheimer's dementia, hypertension, hyperlipidemia, GERD, was evaluated at bedside and was admitted for rule out of IA after patient reported chest pain and was perceived to be having shortness of breath at the [facility] where he resides yesterday afternoon. residential staff reported that the patient complained of chest pain and appeared to be in mild distressed prompting transferring him to the ER by EMS. Upon arriving serial troponins were ordered and although they demonstrated a upward trend they remained in the normal range, EKG also demonstrated a normal sinus rhythm. During the hospitalization patient denied recurrence of any chest pain or any difficulty breathing and showed no other abnormalities outside his usual symptoms of dementia. This morning he was evaluated at bedside and appeared comfortable and sitting in a chair watching television. He was of a pleasant demeanor and try to answer questions to the best of his ability. When asked if he had any chest pain he said no. Physical exam was unremarkable, the patient had clear lung sounds and a normal sinus rhythm on auscultation, he had no pedal edema or any concerning signs or symptoms. Therefore we are discharging the patient home with instructions to return to our ER if chest pain were to recur. Patient is to also follow-up with me his primary care physician in the outpatient clinic for follow-up. He is to resume all of his routine medications. Given the patient's risk factors he will be discharged with a prescription for daily p.o. baby aspirin. Procedures Performed: none Results and Findings: Lab Pending Results 05/16/19 16:38: WBC 13.3 H, RBC 4.23 L, Hgb 12.6 L, Hct 38.9 L, MCV 92.0, MCH 29.8, MCHC 32.4, RDW 13.1, Plt Count 336, MPV 8.8, Immature Gran % (Auto) 0.50 H, Immature Gran # (Auto) 0.06 H, Neutrophils % 69.3, Lymphocytes % 21.2, Monocytes % 6.5, Eosinophils % 1.8, Basophils % 0.7, Nucleated RBC % 0.0, Neutrophils # 9.2 H, Lymphocytes # 2.81, Monocytes # 0.9, Eosinophils # 0.2, Absolute Basophils 0.1 05/16/19 16:38: PT 12.4 H, INR (Anticoag Therapy) 1.26 H, PTT ([place]) 26.1 05/16/19 16:38: Sodium 140, Plasma Sodium 140, Potassium 4.2, Chloride 104, Carbon Dioxide 27.6, Anion Gap 12.6, BUN 21 D, Creatinine 1.55 H, Est GFR (Non- Af Amer) 57 L, BUN/Creatinine Ratio 13.5, Random Glucose 114 H, Calcium 9.3, Calcium Adj for Albumin 9.8, Total Bilirubin 0.6, AST 13, ALT 8 L, Alkaline Phosphatase 60, Troponin I Less than 0.017, Total Protein 7.8, Albumin 3.0 L 05/16/19 20:10: Troponin I 0.038 05/17/19 02:25: Troponin I 0.064 05/17/19 06:20: WBC 8.9 D, RBC 4.36 L, Hgb 12.6 L, Hct 39.7 L, MCV 91.1, MCH 28.9, MCHC 31.7 L, RDW 13.1, Plt Count 349, MPV 9.3, Immature Gran % (Auto) 0.20, Immature Gran # (Auto) 0.02, Neutrophils % 63.4, Lymphocytes % 25.6, Monocytes % 6.8, Eosinophils % 3.2 H, Basophils % 0.8, Nucleated RBC % 0.0, Neutrophils # 5.7, Lymphocytes # 2.29, Monocytes # 0.6, Eosinophils # 0.3, Absolute Basophils 0.1 05/17/19 06:20: Sodium 141, Plasma Sodium 141, Potassium 4.2, Chloride 106, Carbon Dioxide 26.2, Anion Gap 13.0, BUN 16, Creatinine 1.43 H, Est GFR (Non-Af Amer) 62, BUN/Creatinine Ratio 11.2, Random Glucose 122 H, Calcium 8.9, Calcium Adj for Albumin 9.5, Total Bilirubin 0.9, AST 15, ALT 7 L, Alkaline Phosphatase 61, Troponin I 0.052, Total Protein 7.5, Albumin 2.8 L Discharge Location: [facility] Disposition: Home self-care Condition: Stable Face to Face Encounter completed per [facility] Guidelines: No Discharge Activity: Activity as tolerated Discharge Diet: General/regular food Prescriptions (Any new or edited meds): Aspirin [Aspirin Chewable] 81 mg PO DAILY 90 Days #30 tab.chew Transmission Status: Pending to [facility] Complete Home Medications List: Complete Home Medication List: acetaminophen 325 mg capsule 650 mg PO HS PRN cap 11/05/17 spironolactone 25 mg tablet 12.5 mg PO DAILY #90 tab 08/05/18 Folic Acid 0.4 mg PO DAILY #30 tab 12/28/18 Lactobacillus Acidophilus [Bacid] 1 ea PO BID #60 cap 12/28/18 Pantoprazole Sodium [Protonix] 40 mg PO DAILY #30 mg 12/28/18 memantine ER 28 mg-donepezil 10 mg capsule sprinkle,ext.release 24 hr 1 cap PO DAILY #90 ea 12/28/18 calcium carbonate 600 mg (1,500 mg)-vitamin D3 400 unit tablet 1 tab PO BID #60 tab 12/29/18 tamsulosin 0.4 mg capsule 0.8 mg PO DAILY #60 cap 12/29/18 mesalamine 1.2 gram tablet,delayed release 2.4 g PO BID tab 03/05/19 quetiapine 25 mg tablet 25 mg PO HS #30 tab 03/05/19 sertraline 50 mg tablet 50 mg PO DAILY #90 tab 03/05/19 food supplemt, lactose-reduced 0.06 gram-1 kcal/mL oral liquid 1 ea PO BID #7110 ml 05/03/19 amlodipine 5 mg tablet 5 mg PO DAILY 05/04/19 Memantine HCl/Donepezil HCl [Namzaric 28 mg-10 mg Capsule] 1 ea PO DAILY 05/16/19 Aspirin [Aspirin Chewable] 81 mg PO DAILY 90 Days #30 tab.chew 05/17/19
[2019-05-17 12:42] VITALS: BP 118/64
[2019-05-17] MEDS ORDERED: QUEtiapine FUMARATE 25 MG TABLET PO SCH (21:00)
[2019-05-17] MEDS ORDERED: DONEPEZIL HCL 10 MG TABLET PO SCH (21:00)
[2019-05-17] MEDS ORDERED: ASPIRIN 81 MG TAB.CHEW PO SCH (22:11)
== END 2019-05-17 12:50 ==
LOC: MS 16:23 → ER 16:23 → MS 21:53
PROVIDERS: ADMIT Family Medicine; ATTEND Family Medicine
DX: M19.90 Unspecified osteoarthritis, unspecified site; E78.5 Hyperlipidemia, unspecified; K21.9 Gastro-esophageal reflux disease without esophagitis; F01.50 Vascular dementia, unspecified severity, without behavioral disturbance, psychotic disturbance, mood disturbance, and anxiety; I10 Essential (primary) hypertension; R07.9 Chest pain, unspecified
CPT/HCPCS: 36415; 71020; 71046; 80053; 84484; 85025; 85610; 85730; 87081; 93005; 99284; 99285; G0378

== ENCOUNTER 2019-05-19 16:52 | Observation (INO) ==
[2019-05-19 17:26] LABS: Hematocrit 38.1 % (42.0-52.0); Mean Cell Volume 92.3 fl (78-100); Mean Corpuscular Hemoglobin 29.1 pg (27-31); Mean Corpuscular Hgb Conc 31.5 g/dl (32-36); Mean Platelet Volume 9.2 fl (8-11.3); Neutrophil # 5.1 K/mm3 (1.3-6.0); Platelet Count 360 K/mm3 (150-450); Red Blood Count 4.13 M/mm3 (4.7-6.0); Red Cell Distribution Width 13.2 % (11.5-14.0); White Blood Count 9.2 K/mm3 (4.0-10.5)
[2019-05-19 17:41] LABS: Anion Gap 14.5 mmol/L (6.8-13.8); BUN/Creatinine Ratio 12.3 (9.0-21.6); Bilirubin, Total 0.7 mg/dL (0.0-1.1); Ca. Corrected For Albumin 9.4 mg/dL (8.4-10.2); Calcium * 8.9 mg/dL (7.9-10.9); Carbon Dioxide 27.8 mmol/L (24-32.6); Potassium 4.3 mmol/L (3.4-4.6); Total Protein 7.7 gm/dL (6.2-8.2); Troponin I 0.023 ng/mL (0.00-0.10)
--- NOTE | 2019-05-19 20:02 | ERNOTE ---
Chest Pain/Cardiac HPI Date of Service: 05/19/19 Chief Complaint: Chest Pain Time Seen by Provider: 05/19/19 17:08 Source: patient Exam Limitations: dementia Immunizations: IMMUNIZATION HX Immunizations Up to Date Yes History of Influenza Vaccine More Information Required Hx Pneumococcal Vaccination More Information Required Allergies/Adverse Reactions: Allergies No Known Allergies Allergy (Verified 05/16/19 22:17) Home Medications: HOME MEDICATIONS acetaminophen 325 mg capsule 650 mg PO HS PRN cap 11/05/17 [Last Taken Unknown] spironolactone 25 mg tablet 12.5 mg PO DAILY #90 tab 08/05/18 [Last Taken 12/12/18] Folic Acid 0.4 mg PO DAILY #30 tab 12/28/18 [Last Taken Unknown] Lactobacillus Acidophilus [Bacid] 1 ea PO BID #60 cap 12/28/18 [Last Taken Unknown] Pantoprazole Sodium [Protonix] 40 mg PO DAILY #30 mg 12/28/18 [Last Taken Unknown] memantine ER 28 mg-donepezil 10 mg capsule sprinkle,ext.release 24 hr 1 cap PO DAILY #90 ea 12/28/18 [Last Taken Unknown] calcium carbonate 600 mg (1,500 mg)-vitamin D3 400 unit tablet 1 tab PO BID #60 tab 12/29/18 [Last Taken Unknown] tamsulosin 0.4 mg capsule 0.8 mg PO DAILY #60 cap 12/29/18 [Last Taken Unknown] mesalamine 1.2 gram tablet,delayed release 2.4 g PO BID tab 03/05/19 [Last Taken Unknown] quetiapine 25 mg tablet 25 mg PO HS #30 tab 03/05/19 [Last Taken Unknown] sertraline 50 mg tablet 50 mg PO DAILY #90 tab 03/05/19 [Last Taken Unknown] food supplemt, lactose-reduced 0.06 gram-1 kcal/mL oral liquid 1 ea PO BID #7110 ml 05/03/19 [Last Taken Unknown] amlodipine 5 mg tablet 5 mg PO DAILY 05/04/19 [Last Taken Unknown] Memantine HCl/Donepezil HCl [Namzaric 28 mg-10 mg Capsule] 1 ea PO DAILY 05/16/19 [Last Taken Unknown] Aspirin [Aspirin Chewable] 81 mg PO DAILY 90 Days #30 tab.chew 05/17/19 [Last Taken Unknown] Atorvastatin Calcium [Lipitor] 20 mg PO HS #30 tab 05/17/19 [Last Taken Unknown] Carvedilol [Coreg] 3.125 mg PO BID #60 tab 05/17/19 [Last Taken Unknown] Narrative: Patient brought in via EMS for an apparent episode of chest pain. He does not recall this and does not know why he is here. Apparently he was gripping his chest and appeared pale. He has no complaints at this time. Had recent admission for CP rule out and this was indeed the case. Evocative testing today also. No other history available from him Timing: gone now Severity/Quality: other Location: other - unknown Chest Pain Radiation: other - unknown Activities at Onset: other - unknown Modifying Factors - Improves: Present: other - unknown Modifying Factors - Worsens: Present: other - unknown Associated Symptoms: Present: other - denies] Prior Chest Pain/Cardiac Workup: Reports: prior chest pain Prior Treatment: Reports: recently seen, treated by physician, recently hospitalized Review of Systems - Narrative Narrative: unable to obtain due to dementia Medical History (Last Reviewed 05/19/19 @ 19:44 by Lester Villanueva MD) Vascular dementia of acute onset without behavioral disturbance (Chronic) DJD (degenerative joint disease) of knee Onset Date: ~11/2013 GERD (gastroesophageal reflux disease) HTN (hypertension) Onset Date: ~2012 anteroseptal, atypical and inferior wall fixed detect with EF low at 50% on nuclear study, however ECHO on 11/13 did not show and WMA only delayed relaxa tion an normal LVEF History of BPH Hyperlipidemia Memory loss Onset Date: ~04/02/14 due to vascular dementia Surgical History: Surgical History (Last Reviewed 05/19/19 @ 19:44 by Lester Villanueva MD) H/O colonoscopy Onset Date: 12/28/18 08/16/11 Rockyguneelima-combined adenomatous and hyperplastic polyp. Repeat 5 yrs. 12/14/18 Eleuterio-moderate to severe chronic active colitis. 12/28/18 Bagan-to 60cm-mild to moderate focalchronic active colitis. H/O inguinal hernia repair Onset Date: ~04/16/13 Dr. Hernandez-left w/mesh H/O transurethral resection of prostate Onset Date: ~02/25/13 History of excision of lesion Onset Date: ~04/16/13 mack- left hip mass-ancrochordon(skin tag). History of stress test Onset Date: ~05/30/16 treadmill-normal Hx laparoscopic cholecystectomy Onset Date: ~02/19/13 Dr. Hernandez-w/cholangiogram Internal hemorrhoid Onset Date: ~11/05/17 treated with infrared in 1994 [facility] Family History: Family History (Last Reviewed 05/19/19 @ 19:44 by Lester Villanueva MD) Sister Diabetes Heart disease Father Gunshot wound Mother Myocardial infarction CVA (cerebral vascular accident) Brother Myocardial infarction Sister No problems noted. Social History: (Last Reviewed 05/19/19 @ 19:44 by Lester Villanueva MD) Social History: Marital status: lives independently: Yes household members: none current occupational status: retired Highest education level completed: high school graduate Service: No Tobacco: Smoking Status: Former smoker how long ago did patient quit smoking: age 29 Alcohol: alcohol intake: current Alcohol type: wine Substance Use: substance use type: does not use Dietary Habits: caffeine: Yes Physical Exam - Physical Exam General Appearance: Present: alert, no apparent distress Head Exam: Present: normal inspection, no evidence of injury Eye Exam: Normal inspection: bilateral, PERRL: bilateral Ears, Nose, Throat: Present: normal ENT inspection Neck: Present: normal inspection Respiratory: Present: no respiratory distress, normal breath sounds, no accessory muscle use, lungs clear Cardiovascular/Chest: Present: regular rate, rhythm, normal peripheral pulses Gastrointestinal/Abdominal: Present: normal bowel sounds, nontender, nondistended, soft Back Exam: Absent: CVA tenderness (R), CVA tenderness (L) Extremity Exam: Present: normal range of motion Neurological Exam: Present: alert, no motor/sensory deficits, other - no acute unilateral focal motor or snesory deficits Skin Exam: Present: normal color, warm/dry Progress - Results and Orders Patient's Lab Results:: I have reviewed the patient's lab results. - Vital Signs Patient's Vital Signs:: I have reviewed the patient's vital signs. Vital Signs: Vital Signs 05/19/19 16:56 05/19/19 17:13 05/19/19 19:20 Temperature 36.4 C Pulse Rate 84 94 Respiratory Rate 20 16 Blood Pressure 124/77 O2 Sat by Pulse Oximetry 93 96 95 - EKG EKG #1 EKG: NSR EKG read: Interp. by me EKG Comments: NSR rate 83. PVCs. Non-specific ST/T wave changes, no STEMI. - X-Ray X-Ray #1 X-Ray: chest Interpretation: Interp. by me X-ray Comments: I reviewed official radiology report - Progress/Reassessment Chief Complaint: Chest Pain Progress Note-Subjective: 05/19/19 19:58 Patient checked out at shift change pending CT report and Repeat Troponin. - Transfer of Care Physician Sign Out: Lester Villanueva Receiving Physician: Bill Martin Pending Results: CT/MRI results, Labs Departure Clinical Impression: Chest pain - Departure Disposition: Still a patient Condition: Stable Referrals: Carmencita Landrum MD [Primary Care Provider] -
[2019-05-19] MEDS ORDERED: ENOXAPARIN SODIUM 80 MG/0.8 ML DISP.SYRIN SC ONE (20:13)
[2019-05-19] MEDS ORDERED: ENOXAPARIN SODIUM 100 MG/ML SYRG SC ONE (20:17)
[2019-05-19] MEDS ORDERED: CARVEDILOL 3.125 MG TABLET PO SCH (23:30)
[2019-05-20] MEDS ORDERED: ENOXAPARIN SODIUM 100 MG/ML SYRG SC SCH (08:30)
[2019-05-20] MEDS ORDERED: ENOXAPARIN SODIUM 60 MG, ENOXAPARIN SODIUM 30 MG SC SCH ×2 (08:30)
[2019-05-20] MEDS ORDERED: CARVEDILOL 3.125 MG TABLET PO SCH (09:00)
--- NOTE | 2019-05-20 09:37 | HPDIS ---
Chief Complaint - Chief Complaint Date of Service: 05/20/19 Time of Service: 08:46 Chief Complaint: Chest pain History of Present Illness: 74-year-old male with a past medical history of GERD, hypertension, hyperlipidemia, vascular dementia without behavioral disturbance, BPH, degenerative joint disease presents from the [facility] with complaints of chest pain. He had been admitted to the hospital a few days ago with for chest pain observation and EKG and troponins were unremarkable and the patient was discharged home he returned again to the emergency department yesterday and was found to have bilateral pulmonary embolism.. In the emergency department chest x-ray showed no acute cardiopulmonary abnormality, EKG and troponin were unremarkable, CT angios was positive for extensive bilateral pulmonary emboli involving lobar, segmental and subsegmental branches bilaterally. He was started on Lovenox in the emergency department and admitted for observation. His vitals remained stable and he today he denies chest pain or shortness of breath. Medical History (Last Reviewed 05/19/19 @ 19:44 by Lester Villanueva MD) Vascular dementia of acute onset without behavioral disturbance (Chronic) DJD (degenerative joint disease) of knee Onset Date: ~11/2013 GERD (gastroesophageal reflux disease) HTN (hypertension) Onset Date: ~2012 anteroseptal, atypical and inferior wall fixed detect with EF low at 50% on nuclear study, however ECHO on 11/13 did not show and WMA only delayed relaxation an normal LVEF History of BPH Hyperlipidemia Memory loss Onset Date: ~04/02/14 due to vascular dementia Surgical History: Surgical History (Last Reviewed 05/19/19 @ 19:44 by Lester Villanueva MD) H/O colonoscopy Onset Date: 12/28/18 08/16/11 Mack-combined adenomatous and hyperplastic polyp. Repeat 5 yrs. 12/14/18 Eleuterio-moderate to severe chronic active colitis. 12/28/18 Bagan-to 60cm-mild to moderate focalchronic active colitis. H/O inguinal hernia repair Onset Date: ~04/16/13 Dr. Hernandez-left w/mesh H/O transurethral resection of prostate Onset Date: ~02/25/13 History of excision of lesion Onset Date: ~04/16/13 mack- left hip mass-ancrochordon(skin tag). History of stress test Onset Date: ~05/30/16 treadmill-normal Hx laparoscopic cholecystectomy Onset Date: ~02/19/13 Dr. Hernandez-w/cholangiogram Internal hemorrhoid Onset Date: ~11/05/17 treated with infrared in 1994 [facility] Family History: Family History (Last Reviewed 05/19/19 @ 19:44 by Lester Villanueva MD) Sister Diabetes Heart disease Father Gunshot wound Mother Myocardial infarction CVA (cerebral vascular accident) Brother Myocardial infarction Sister No problems noted. Social History: (Last Reviewed 05/19/19 @ 19:44 by Lester Villanueva MD) Social History: Marital status: lives independently: Yes household members: none current occupational status: retired Highest education level completed: high school graduate Service: No Tobacco: Smoking Status: Former smoker how long ago did patient quit smoking: age 29 Alcohol: alcohol intake: current Alcohol type: wine Substance Use: substance use type: does not use Dietary Habits: caffeine: Yes Review Of Systems (GEN) - Review of Systems Generalized/Overall Review: Absent: Fever Respiratory: Absent: Shortness of Breath Cardiac: Present: Chest Pain Abdominal: Absent: Abdominal Pain Misc: All systems neg except as marked Immunizations: IMMUNIZATION HX Immunizations Up to Date Yes History of Influenza Vaccine More Information Required Hx Pneumococcal Vaccination More Information Required Allergies/Adverse Reactions: Allergies Allergy/AdvReac Type Severity Reaction Status Date / Time No Known Allergies Allergy Verified 05/16/19 22:17 Home Medications: HOME MEDICATIONS acetaminophen 325 mg capsule 650 mg PO HS PRN cap 11/05/17 [Last Taken Unknown] spironolactone 25 mg tablet 12.5 mg PO DAILY #90 tab 08/05/18 [Last Taken 12/12/18] Folic Acid 0.4 mg PO DAILY #30 tab 12/28/18 [Last Taken Unknown] Pantoprazole Sodium [Protonix] 40 mg PO DAILY #30 mg 12/28/18 [Last Taken Unkn own] calcium carbonate 600 mg (1,500 mg)-vitamin D3 400 unit tablet 1 tab PO BID #60 tab 12/29/18 [Last Taken Unknown] tamsulosin 0.4 mg capsule 0.8 mg PO DAILY #60 cap 12/29/18 [Last Taken Unknown] mesalamine 1.2 gram tablet,delayed release 2.4 g PO BID tab 03/05/19 [Last Taken Unknown] quetiapine 25 mg tablet 25 mg PO HS #30 tab 03/05/19 [Last Taken Unknown] sertraline 50 mg tablet 50 mg PO DAILY #90 tab 03/05/19 [Last Taken Unknown] amlodipine 5 mg tablet 5 mg PO DAILY 05/04/19 [Last Taken Unknown] Aspirin [Aspirin Chewable] 81 mg PO DAILY 90 Days #30 tab.chew 05/17/19 [Last Taken Unknown] Atorvastatin Calcium [Lipitor] 20 mg PO HS #30 tab 05/17/19 [Last Taken Unknown] Carvedilol [Coreg] 3.125 mg PO BID #60 tab 05/17/19 [Last Taken Unknown] Acidoph/L.bulg/Bif.b/S.thermop [Bacid Caplet] 1 ea PO BID 05/19/19 [Last Taken Unknown] Memantine HCl/Donepezil HCl [Namzaric 28 mg-10 mg Capsule] 1 ea PO DAILY 05/19/19 [Last Taken Unknown] Apixaban [Eliquis] 10 mg PO BID #60 tab 05/20/19 [Last Taken Unknown] Exam - Exam Vital Signs: Vital Signs - Last Taken Temp 36.8 C 05/20/19 06:44 Pulse 79 05/20/19 07:26 Resp 18 05/20/19 06:44 BP 132/64 05/20/19 06:44 Pulse Ox 93 05/20/19 06:44 Constitutional: Present: Alert, Cooperative, Well developed, Well nourished, Elderly ENT Exam: Present: hearing grossly normal, moist mucous membranes Eye Exam: bilateral eye: normal inspection, EOMI Neck: Present: non-tender, supple. Absent: lymphadenopathy (R), lymphadenopathy (L) Back Exam: Present: normal inspection, no CVA tenderness, no vertebral tenderness Respiratory: Present: lungs clear, no respiratory distress, no accessory muscle use, No wheezing. Absent: crackles, rhonchi Cardiovascular/Chest: Present: normal peripheral pulses, regular rate, rhythm, no edema, no murmur Peripheral Pulses: dorsalis-pedis (R): 1+, dorsalis-pedis (L): 1+ Abdomen: Present: Normal bowel sounds, soft, nontender Extremity: Present: no pedal edema Skin Exam: Present: normal color, warm/dry Neurologic: Present: alert, normal mood/affect Appearance: Present: appropriate appearance, appropriate insight Eye contact: Present: cooperative Thoughts: Present: normal mood /affect Diagnostic Studies: Abnormal Lab Results 05/19/19 05/19/19 05/19/19 Range/Units 17: 17:19 17:19 RBC 4.13 L (4.7-6.0) M/mm3 Hgb 12.0 L (13.5-18.0) gm/dL Hct 38.1 L (42.0-52.0) % MCHC 31.5 L (32-36) g/dl Eosinophils % 4.0 H (0.0-3.0) % D-Dimer 4.69 H (0.19-0.49) ug/mL Sodium 143 H (132-142) mmol/L Plasma Sodium 143 H (130-142) mmol/L Anion Gap 14.5 H (6.8-13.8) mmol/L Creatinine 1.55 H (0.4-1.4) mg/dL Est GFR (Non-Af Amer) 57 L (60-130) mL/min ALT 13 L (19-67) U/L Albumin 3.0 L (3.4-5.0) gm/dl Laboratory Results WBC 9.2 K/mm3 (4.0-10.5) 05/19/19 17: RBC 4.13 M/mm3 (4.7-6.0) L 05/19/19 17:19 Hgb 12.0 gm/dL (13.5-18.0) L 05/19/19 17:19 Hct 38.1 % (42.0-52.0) L 05/19/19 17:19 MCV 92.3 fl (78-100) 05/19/19 17:19 MCH 29.1 pg (27-31) 05/19/19 17:19 MCHC 31.5 g/dl (32-36) L 05/19/19 17:19 RDW 13.2 % (11.5-14.0) 05/19/19 17:19 Plt Count 360 K/mm3 (150-450) 05/19/19 17:19 MPV 9.2 fl (8-11.3) 05/19/19 17:19 Immature Gran % (Auto) 0.30 % (0.001-0.429) 05/19/19 17:19 Immature Gran # (Auto) 0.03 K/mm3 (0.000-0.0310) 05/19/19 17:19 Neutrophils % 55.0 % (42-75.0) 05/19/19 17:19 Lymphocytes % 33.6 % (20-51) 05/19/19 17:19 Monocytes % 6.4 % (0.0-9) 05/19/19 17:19 Eosinophils % 4.0 % (0.0-3.0) H 05/19/19 17:19 Basophils % 0.7 % (0.0-1.0) 05/19/19 17:19 Nucleated RBC % 0.0 k/mm3 (0-1) 05/19/19 17:19 Neutrophils # 5.1 K/mm3 (1.3-6.0) 05/19/19 17:19 Lymphocytes # 3.09 k/mm3 (1.5-3.5) 05/19/19 17:19 Monocytes # 0.6 k/mm3 (0.0-1.0) 05/19/19 17:19 Eosinophils # 0.4 k/mm3 (0.0-0.7) 05/19/19 17:19 Absolute Basophils 0.1 k/mm3 (0.0-0.1) 05/19/19 17:19 D-Dimer 4.69 ug/mL (0.19-0.49) H 05/19/19 17:19 Sodium 143 mmol/L (132-142) H 05/19/19 17:19 Plasma Sodium 143 mmol/L (130-142) H 05/19/19 17:19 Potassium 4.3 mmol/L (3.4-4.6) 05/19/19 17:19 Chloride 105 mmol/L (97-106) 05/19/19 17:19 Carbon Dioxide 27.8 mmol/L (24-32.6) 05/19/19 17:19 Anion Gap 14.5 mmol/L (6.8-13.8) H 05/19/19 17:19 BUN 19 mg/dL (6-23) 05/19/19 17:19 Creatinine 1.55 mg/dL (0.4-1.4) H 05/19/19 17:19 Est GFR (Non-Af Amer) 57 mL/min (60-130) L 05/19/19 17:19 BUN/Creatinine Ratio 12.3 (9.0-21.6) 05/19/19 17: Random Glucose 99 mg/dL (70-110) 05/19/19 17: Calcium 8.9 mg/dL (7.9-10.9) 05/19/19 17: Calcium Adj for Albumin 9.4 mg/dL (8.4-10.2) 05/19/19 17: Total Bilirubin 0.7 mg/dL (0.0-1.1) 05/19/19 17: AST 17 U/L (0-48) 05/19/19 17: ALT 13 U/L (19-67) L 05/19/19 17: Alkaline Phosphatase 63 U/L (50-170) 05/19/19 17: Troponin I 0.023 ng/mL (0.00-0.10) 05/19/19 17: Total Protein 7.7 gm/dL (6.2-8.2) 05/19/19 17: Albumin 3.0 gm/dl (3.4-5.0) L 05/19/19 17:19 Assessment/Plan - Narrative Narrative: 74-year-old male with a past medical history of GERD, hypertension, hyperlipidemia, vascular dementia without behavioral disturbance, BPH, degenerative joint disease presents from the [facility] with complaints of chest pain. He had been admitted to the hospital a few days ago with for chest pain observation and EKG and troponins were unremarkable and the patient was discharged home he returned again to the emergency department yesterday and was found to have bilateral pulmonary embolism.. In the emergency department chest x-ray showed no acute cardiopulmonary abnormality, EKG and troponin were unremarkable, CT angios was positive for extensive bilateral pulmonary emboli involving lobar, segmental and subsegmental branches bilaterally. He was started on Lovenox in the emergency department and admitted for observation. His vitals remained stable and he today he denies chest pain or shortness of breath. - Assessment/Plan (1) Bilateral pulmonary embolism Problem: Acute (2) Chest pain Problem: Acute Qualifiers: Chest pain type: unspecified Qualified Code(s): R07.9 - Chest pain, unspecified (3) Vascular dementia of acute onset without behavioral disturbance Problem: Chronic (4) Hypertension Problem: Chronic Qualifiers: Hypertension type: essential hypertension Qualified Code(s): I10 - Essential (primary) hypertension (5) Hyperlipidemia Problem: Chronic Qualifiers: Hyperlipidemia type: unspecified Qualified Code(s): E78.5 - Hyperlipidemia, unspecified (6) Chronic gastroesophageal reflux disease Problem: Chronic (1) Bilateral pulmonary embolism Problem: Acute (2) Chest pain Problem: Acute (3) Vascular dementia of acute onset without behavioral disturbance Problem: Chronic (4) Hypertension Problem: Chronic Qualifiers: Hypertension type: essential hypertension Qualified Code(s): I10 - Essential (primary) hypertension (5) Hyperlipidemia Problem: Chronic Qualifiers: Hyperlipidemia type: unspecified Qualified Code(s): E78.5 - Hyperlipidemia, unspecified (6) Chronic gastroesophageal reflux disease Problem: Chronic Hospital Course: 74-year-old male with a past medical history of GERD, hypertension, hyperlipidemia, vascular dementia without behavioral disturbance, BPH, degenerative joint disease presents from the [facility] with complaints of chest pain. He had been admitted to the hospital a few days ago with for chest pain observation and EKG and troponins were unremarkable and the patient was discharged home he returned again to the emergency department yesterday and was found to have bilateral pulmonary embolism.. In the emergency department chest x-ray showed no acute cardiopulmonary abnormality, EKG and troponin were unremarkable, CT angios was positive for extensive bilateral pulmonary emboli involving lobar, segmental and subsegmental branches bilaterally. He was started on Lovenox in the emergency department and admitted for observation. His vitals remained stable and he today he denies chest pain or shortness of breath. I will send him home on Eliquis 10 mg twice a day for 7 days followed by 5 mg twice a day. The etiology of the PE is on clear so I am not sure if this is a provoked or unprovoked PE. He will follow-up with his primary care physician in 1 to 2 weeks. Procedures Performed: none Results and Findings: Lab Pending Results 05/19/19 17:19: WBC 9.2, RBC 4.13 L, Hgb 12.0 L, Hct 38.1 L, MCV 92.3, MCH 29.1, MCHC 31.5 L, RDW 13.2, Plt Count 360, MPV 9.2, Immature Gran % (Auto) 0.30, Immature Gran # (Auto) 0.03, Neutrophils % 55.0, Lymphocytes % 33.6, Monocytes % 6.4, Eosinophils % 4.0 H, Basophils % 0.7, Nucleated RBC % 0.0, Neutrophils # 5.1, Lymphocytes # 3.09, Monocytes # 0.6, Eosinophils # 0.4, Absolute Basophils 0.1 05/19/19 17:19: Sodium 143 H, Plasma Sodium 143 H, Potassium 4.3, Chloride 105, Carbon Dioxide 27.8, Anion Gap 14.5 H, BUN 19, Creatinine 1.55 H, Est GFR (Non- Af Amer) 57 L, BUN/Creatinine Ratio 12.3, Random Glucose 99, Calcium 8.9, Calcium Adj for Albumin 9.4, Total Bilirubin 0.7, AST 17, ALT 13 L, Alkaline Phosphatase 63, Troponin I 0.023, Total Protein 7.7, Albumin 3.0 L 05/19/19 17:19: D-Dimer 4.69 H Discharge Location: [facility] Disposition: Intermediate Care Facility ICF Condition: Fair Level of Care: ICF Discharge Activity: Activity as tolerated Discharge Diet: Low salt, Low fat/chol Referrals: Carmencita Landrum MD [Primary Care Provider] - Additional Patient Instructions (free text): Resume all previous shelter orders. Prescriptions (Any new or edited meds): Apixaban [Eliquis] 10 mg PO BID #60 tab Transmission Status: Received by [facility] Complete Home Medications List: Complete Home Medication List: acetaminophen 325 mg capsule 650 mg PO HS PRN cap 11/05/17 spironolactone 25 mg tablet 12.5 mg PO DAILY #90 tab 08/05/18 Folic Acid 0.4 mg PO DAILY #30 tab 12/28/18 Pantoprazole Sodium [Protonix] 40 mg PO DAILY #30 mg 12/28/18 calcium carbonate 600 mg (1,500 mg)-vitamin D3 400 unit tablet 1 tab PO BID #60 tab 12/29/18 tamsulosin 0.4 mg capsule 0.8 mg PO DAILY #60 cap 12/29/18 mesalamine 1.2 gram tablet,delayed release 2.4 g PO BID tab 03/05/19 quetiapine 25 mg tablet 25 mg PO HS #30 tab 03/05/19 sertraline 50 mg tablet 50 mg PO DAILY #90 tab 03/05/19 amlodipine 5 mg tablet 5 mg PO DAILY 05/04/19 Aspirin [Aspirin Chewable] 81 mg PO DAILY 90 Days #30 tab.chew 05/17/19 Atorvastatin Calcium [Lipitor] 20 mg PO HS #30 tab 05/17/19 Carvedilol [Coreg] 3.125 mg PO BID #60 tab 05/17/19 Acidoph/L.bulg/Bif.b/S.thermop [Bacid Caplet] 1 ea PO BID 05/19/19 Memantine HCl/Donepezil HCl [Namzaric 28 mg-10 mg Capsule] 1 ea PO DAILY 05/19/19 Apixaban [Eliquis] 10 mg PO BID #60 tab 05/20/19
[2019-05-20 12:42] VITALS: BP 126/80
[2019-05-20] MEDS ORDERED: ROSUVASTATIN CALCIUM 10 MG TABLET PO SCH (21:00)
[2019-05-20] MEDS ORDERED: QUEtiapine FUMARATE 25 MG TABLET PO SCH (21:00)
[2019-05-20] MEDS ORDERED: ROSUVASTATIN CALCIUM 20 MG TABLET PO SCH (21:00)
== END 2019-05-20 11:30 ==
LOC: MS 16:52 → ER 16:52 → MS 21:00
PROVIDERS: ADMIT Internal Medicine; ATTEND Family Medicine
DX: K21.9 Gastro-esophageal reflux disease without esophagitis; R07.9 Chest pain, unspecified; F01.50 Vascular dementia, unspecified severity, without behavioral disturbance, psychotic disturbance, mood disturbance, and anxiety; I26.99 Other pulmonary embolism without acute cor pulmonale; I10 Essential (primary) hypertension; E78.5 Hyperlipidemia, unspecified
CPT/HCPCS: 36415; 71020; 71046; 71275; 80053; 84484; 85025; 85379; 87081; 93005; 96372; 99285; G0378; Q9967